=== PATIENT | female | born 2000 | race Caucasian/White ===

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

== ENCOUNTER 2018-01-09 03:03 | Emergency (ER) | payer OTHER ==
[2018-01-09] MEDS ORDERED: LIDOCAINE 2% 10 ML MDV SUBQ STA (03:12)
[2018-01-09 03:13] VITALS: BP 114/78
--- NOTE | 2018-01-09 03:40 | ED Physician Documentation ---
PD HPI SKIN - Stated complaint Stated Complaint: PX ON FINGERS - Chief complaint Chief Complaint: Ext Problem - History obtained from History obtained from: Patient, Family - History of Present Illness Timing - onset: How many days ago (4) Timing - details: Gradual onset, Still present Location: RUE Quality / character: Painful, Discolored Associated symptoms: No: Fever - Additional information Additional information: Patient is a 17 year old female presenting to the emergency department for a painful finger. patient states that it is red and swollen and has become progressively worse over the last week. Patient states that she couldn't sleep tonight so she came in for evaluation. Review of Systems Ten Systems: 10 systems reviewed and negative PD PAST MEDICAL HISTORY - Past Medical History Past Medical History: Yes Cardiovascular: None Respiratory: Asthma Neuro: None, Multiple sclerosis Endocrine/Autoimmune: None GI: Crohn's disease : None Musculoskeletal: None Derm: None - Past Surgical History Past Surgical History: Yes General: Colonoscopy - Present Medications Home Medications: Ambulatory Orders Medication Instructions Recorded Confirmed No Known Home Medications [No 11/25/17 11/25/17 Known Home Medications] - Allergies Allergies/Adverse Reactions: Allergies Allergy/AdvReac Type Severity Reaction Status Date / Time ibuprofen AdvReac Unknown Verified 01/09/18 03:13 - Social History Does the pt smoke?: No Smoking Status: Never smoker Does the pt drink ETOH?: No Does the pt have substance abuse?: No - Immunizations Immunizations are current?: Yes - POLST Patient has POLST: No PD ED PE NORMAL - Vitals Vital signs reviewed: Yes - General General: Alert and oriented X 3, Well developed/nourished - HEENT HEENT: Atraumatic - Cardiac Cardiac: RRR - Respiratory Respiratory: No respiratory distress - Neuro Neuro: Alert and oriented X 3 Eye Opening: Spontaneous PD ED PE EXPANDED - Extremities Extremities: Right finger(s) (paronychia on third digit of right hand) Results - Vitals Vitals: Vital Signs - 24 hr 01/09/18 03:09 Temperature 36.1 C L Heart Rate 68 Respiratory 17 Rate Blood Pressure 114/78 O2 Saturation 100 Oxygen O2 Source Room air Procedures - Abscess I&D (location) right third digit Preparation: Alcohol Incision: Incised with scalpel, Purulent drainage Other: Pt tolerated well - Regional nerve block Nerve block site: Digital - note digit(s) (3rd digit of hand) Right / left: Right Nerve block anesthesia: Lidocaine 2% Nerve block aftercare: Excellent anesthesia, No complications PD MEDICAL DECISION MAKING - ED course Complexity details: reviewed old records, re-evaluated patient, considered differential, d/w patient, d/w family ED course: Patient was seen and examined at bedside. Digital block was performed and I/D was performed with minimal purulent drainage. Patient required no further work up at this time and was stable for discharge with outpatient follow up. Departure - Departure Disposition: 01 Home, Self Care Clinical Impression: Paronychia of finger Condition: Good Instructions: ED Fingernail Infec, ED Paronychia Ch Follow-Up: primary,care provider [Other] Comments: Your symptoms today were caused by paronychia or fingernail infection. Now that the area is open the pain should lessen. You can take motrin or tylenol as needed for pain. You can apply warm compresses to the area and apply some pressure while showering. You should keep the area clean and dry and you can apply topical antibiotic as needed. You can follow up with your doctor if your symptoms don't improve. you may return to the emergency department at any time for new, worsening or uncontrollable symptoms.
== END 2018-01-09 03:45 | disposition home or self-care (01) ==
LOC: ED 03:03
DX: L03.011 Cellulitis of right finger (principal); G35 Multiple sclerosis; J45.909 Unspecified asthma, uncomplicated; K50.90 Crohn's disease, unspecified, without complications
CPT/HCPCS: 10060; 99282; 99283

== ENCOUNTER 2018-01-24 22:15 | Emergency (ER) | payer OTHER ==
[2018-01-24] MEDS ORDERED: TRANEXAMIC ACID 1,000 MG/10 ML VIAL NAS STA (22:51)
--- NOTE | 2018-01-25 00:10 | ED Physician Documentation ---
PD HPI HEENT - Stated complaint Stated Complaint: S/P TONSILECTOMY - Chief complaint Chief Complaint: Heent - History obtained from History obtained from: Patient - History of Present Illness Timing - onset: How many days ago (8) Timing - details: Gradual onset, Intermittant Location: Throat Similar symptoms before: Work up / diagnostics, Treatment Recently seen: Surgery - Additional information Additional information: Patient is a 17 year old female status post tonsillectomy about 8 days ago. Patient states that since that time she has had intermittent bleeding but tonight was worse than it had been. Patient called the probation manager office but it was saturday so they said to come to the emergency department. Review of Systems Ten Systems: 10 systems reviewed and negative Throat: reports: Sore throat PD PAST MEDICAL HISTORY - Past Medical History Cardiovascular: None Respiratory: Asthma Endocrine/Autoimmune: None GI: Crohn's disease : None Musculoskeletal: None Derm: None - Past Surgical History Past Surgical History: Yes General: Colonoscopy - Present Medications Home Medications: Ambulatory Orders Medication Instructions Recorded Confirmed No Known Home Medications [No 11/25/17 11/25/17 Known Home Medications] - Allergies Allergies/Adverse Reactions: Allergies Allergy/AdvReac Type Severity Reaction Status Date / Time ibuprofen AdvReac Unknown Verified 01/09/18 03:13 - Social History Does the pt smoke?: No Smoking Status: Never smoker Does the pt drink ETOH?: No Does the pt have substance abuse?: No - Immunizations Immunizations are current?: Yes - POLST Patient has POLST: No PD ED PE NORMAL - Vitals Vital signs reviewed: Yes - General General: Alert and oriented X 3, No acute distress - HEENT HEENT: Atraumatic - Neck Neck: Supple, no meningeal sign - Cardiac Cardiac: RRR - Respiratory Respiratory: No respiratory distress - Derm Derm: Normal color - Extremities Extremities: No deformity - Neuro Neuro: Alert and oriented X 3 PD ED PE EXPANDED - HEENT HEENT: Pharyngeal erythema, Other (minimal active bleeding) Results - Vitals Vitals: Vital Signs - 24 hr 01/24/18 01/25/18 01/25/18 22:24 00:05 00:41 Temperature 37.3 C Heart Rate 91 72 70 Respiratory 16 18 16 Rate Blood Pressure 114/71 119/77 112/50 L O2 Saturation 100 100 2 L Oxygen O2 Source Room air PD MEDICAL DECISION MAKING - ED course Complexity details: reviewed old records, reviewed results, re-evaluated patient , considered differential, d/w patient ED course: Patient was seen and examined at bedside. patient was treated with nebulized racemic epi. Patient responded well and the bleeding stopped. patient required no further work up at this time and was stable for discharge with outpatient follow up. Departure - Departure Disposition: Home, Self Care Clinical Impression: Hemorrhage following tonsillectomy Condition: Good Instructions: ED Tonsillectomy Post Op Bleeding Follow-Up: Susie Fischer MD [Primary Care Provider] - Comments: It is important that you follow up with your doctor on saturday to schedule your follow up appointment. You may return to the emergency department at any time for new, worsening or uncontrollable symptoms. Discharge Date/Time: 01/25/18 00:42
[2018-01-25 00:42] VITALS: BP 112/50
== END 2018-01-25 00:42 | disposition home or self-care (01) ==
LOC: ED 22:15
DX: J95.830 Postprocedural hemorrhage of a respiratory system organ or structure following a respiratory system procedure (principal); J35.8 Other chronic diseases of tonsils and adenoids; R04.1 Hemorrhage from throat
CPT/HCPCS: 99283

== ENCOUNTER 2018-10-11 15:40 | Emergency (ER) | payer OTHER ==
[2018-10-11 15:48] VITALS: BP 106/62
--- NOTE | 2018-10-11 16:02 | ED Physician Documentation ---
History of Present Illness - Stated complaint Stated Complaint: BLOOD/MUCUS IN STOOL - Chief complaint Chief Complaint: General - History obtained from History obtained from: Patient - History of Present Illness Timing: Other (This is a G1 at 31 weeks gestation who presents with 3 weeks of diarrhea that over the last week is been bloody and mucousy with poor weight gain and some cramps. No vaginal bleeding or fluid loss. She wonders if she might have a parasite, but denies foreign travel. She did recently have a single dose of antibiotics in the emergency department at [facility] for UTI but did not fill the prescription for UTI because the pharmacy has been closed.) Review of Systems Constitutional: denies: Fever, Chills GI: reports: Diarrhea. denies: Abdominal Pain, Nausea, Vomiting : denies: Dysuria, Frequency PD PAST MEDICAL HISTORY - Past Medical History Cardiovascular: None Respiratory: Asthma Endocrine/Autoimmune: None GI: Crohn's disease : None Musculoskeletal: None Derm: None - Past Surgical History Past Surgical History: Yes General: Colonoscopy - Present Medications Home Medications: Ambulatory Orders Medication Instructions Recorded Confirmed Pnv No.95/Ferrous Fum/Folic AC 1 tab PO DAILY 10/11/18 10/11/18 [ Caplet] - Allergies Allergies/Adverse Reactions: Allergies Allergy/AdvReac Type Severity Reaction Status Date / Time ibuprofen AdvReac Unknown Verified 10/11/18 15:48 - Social History Does the pt smoke?: No Smoking Status: Never smoker Does the pt drink ETOH?: No Does the pt have substance abuse?: No - Immunizations Immunizations are current?: Yes - POLST Patient has POLST: No PD ED PE NORMAL - Vitals Vital signs reviewed: Yes - General General: Alert and oriented X 3, No acute distress - Cardiac Cardiac: RRR, No murmur - Respiratory Respiratory: No respiratory distress, Clear bilaterally - Abdomen Abdomen: Normal bowel sounds, Soft, Non tender - Female Female : Other (bedside sono FHT 143) - Back Back: No CVA TTP, No spinal TTP - Neuro Neuro: Alert and oriented X 3, Normal speech - Psych Psych: Normal mood, Normal affect Results - Vitals Vitals: Vital Signs - 24 hr 10/11/18 15:45 Temperature 36.1 C L Heart Rate 109 H Respiratory 18 Rate Blood Pressure 106/62 O2 Saturation 99 Oxygen O2 Source Room air - Labs Labs: Microbiology 10/11/18 16:45 Campylobacter Antigen Assay - Final Stool Laboratory Tests 10/11/18 10/11/18 10/11/18 16:10 16:10 16:34 WBC 10.9 H RBC 2.85 L Hgb 7.1 L Hct 22.7 L MCV 79.7 L MCH 25.0 L MCHC 31.4 L RDW 16.3 H Plt Count 346 MPV 7.3 L Neut # (Auto) Not Reportable Lymph # (Auto) Not Reportable Victoria # (Auto) Not Reportable Eos # (Auto) Not Reportable Baso # (Auto) Not Reportable Absolute Nucleated RBC Not Reportable Total Counted 100 Band Neuts % (Manual) 0 Abnorm Lymph % (Manual) 0 Nucleated RBC % Not Reportable Neutrophils # (Manual) 7.1 H Lymphocytes # (Manual) 1.4 L Monocytes # (Manual) 1.3 H Eosinophils # (Manual) 1.1 H Basophils # (Manual) 0.0 Differential Comment MANUAL DIFFERENTIAL Manual Slide Review Indicated WBC Morphology NORMAL APPEARANCE Platelet Estimate NORMAL (130-450,000) Platelet Morphology NORMAL APPEARANCE RBC Morph Micro Appear 1+ MICROCYTOSIS Sodium 134 L Potassium 3.2 L Chloride 103 Carbon Dioxide 22 Anion Gap 9.0 BUN 6 Creatinine 0.5 Estimated GFR (MDRD) 159 Glucose 105 H Calcium 8.3 L Total Bilirubin 0.4 AST 19 ALT 11 Alkaline Phosphatase 122 H Total Protein 6.0 L Albumin 2.2 L Globulin 3.8 Albumin/Globulin Ratio 0.6 L Lipase 30 Urine Color Urine Clarity Urine pH Ur Specific [place] Urine Protein Urine Glucose (UA) Urine Ketones Urine Occult Blood Urine Nitrite Urine Bilirubin Urine Urobilinogen Ur Leukocyte Esterase Urine RBC Urine WBC Ur Squamous Epith Cells Amorphous Sediment Urine Bacteria Ur Microscopic Review Urine Culture Comments C. difficile Tox B Gene POSITIVE A* 10/11/18 16:45 WBC RBC Hgb Hct MCV MCH MCHC RDW Plt Count MPV Neut # (Auto) Lymph # (Auto) Victoria # (Auto) Eos # (Auto) Baso # (Auto) Absolute Nucleated RBC Total Counted Band Neuts % (Manual) Abnorm Lymph % (Manual) Nucleated RBC % Neutrophils # (Manual) Lymphocytes # (Manual) Monocytes # (Manual) Eosinophils # (Manual) Basophils # (Manual) Differential Comment Manual Slide Review WBC Morphology Platelet Estimate Platelet Morphology RBC Morph Micro Appear Sodium Potassium Chloride Carbon Dioxide Anion Gap BUN Creatinine Estimated GFR (MDRD) Glucose Calcium Total Bilirubin AST ALT Alkaline Phosphatase Total Protein Albumin Globulin Albumin/Globulin Ratio Lipase Urine Color YELLOW Urine Clarity CLOUDY Urine pH 6.0 Ur Specific [place] 1.025 Urine Protein NEGATIVE Urine Glucose (UA) NEGATIVE Urine Ketones NEGATIVE Urine Occult Blood TRACE-INTA Urine Nitrite NEGATIVE Urine Bilirubin NEGATIVE Urine Urobilinogen 0.2 (NORMAL) Ur Leukocyte Esterase MODERATE H Urine RBC 0-5 Urine WBC 6-10 H Ur Squamous Epith Cells MOD Squamous H Amorphous Sediment Few Urine Bacteria Few Ur Microscopic Review INDICATED Urine Culture Comments NOT INDICATED C. difficile Tox B Gene PD MEDICAL DECISION MAKING - ED course ED course: Her illness actually sounds more like inflammatory bowel disease than anything else. She is profoundly anemic, however her lab work done 2 years ago shows a similar level of hemoglobin. This was discussed with her as well as her OB, by phone , Dr Alvarez After discharge her stool was called is being positive for Clostridium difficile.. The nurse called the patient and she was called in a prescription for vancomycin 250 mg 4 times a day for 10 days. Departure - Departure Disposition: 01 Home, Self Care Clinical Impression: Inflammatory bowel disease, Anemia, Condition: Good Record reviewed to determine appropriate education?: Yes Instructions: Disease Crohn Dc, ED Anemia Type Not Specified Comments: Followup with Dr Alvarez this week as discussed, repeat ultrasound and follow labs, consider colonoscopy after delivery. Discharge Date/Time: 10/11/18 17:06
[2018-10-11 16:28] LABS: BASOPHILS % (AUTO) 0.5 %; EOSINOPHILS % (AUTO) 17.1 %; HGB - HEMOGLOBIN 7.1 g/dL (12.0-16.0); LYMPHOCYTES % (AUTO) 16.1 %; MEAN CORPUSCULAR HGB CONC 31.4 g/dL (32.0-36.0); MEAN CORPUSCULAR VOLUME 79.7 fL (81.0-99.0); MEAN PLATELET VOLUME 7.3 fL (7.9-10.8); MONOCYTES % (AUTO) 9.5 %; NEUTROPHILS % (AUTO) 56.8 %; PLT - PLATELET COUNT 346 10^3/uL (130-450); RED BLOOD COUNT 2.85 10^6/uL (4.20-5.40); RED CELL DISTRIBUTION WIDTH 16.3 % (12.0-15.0); WHITE BLOOD COUNT 10.9 x10^3/uL (4.8-10.8)
[2018-10-11 16:31] LABS: ABNORMAL LYMPHS % (MANUAL) 0 %; ALBUMIN 2.2 g/dL (3.2-5.5); ALBUMIN/GLOBULIN RATIO 0.6 (1.0-2.2); BAND NEUTROPHILS % (MANUAL) 0 %; BILIRUBIN,TOTAL 0.4 mg/dL (0.2-1.0); CALCIUM 8.3 mg/dL (8.5-10.3); CREATININE 0.5 mg/dL (0.4-1.0)
[2018-10-11 16:41] LABS: EOSINOPHILS # (MANUAL) 1.1 10^3/uL (0-0.7); LYMPHOCYTES # (MANUAL) 1.4 10^3/uL (1.5-3.5); LYMPHOCYTES % (MANUAL) 13 %; MONOCYTES # (MANUAL) 1.3 10^3/uL (0.0-1.0); NEUTROPHILS # (MANUAL) 7.1 10^3/uL (1.5-6.6); NEUTROPHILS % (MANUAL) 65 %
[2018-10-11 16:42] LABS: DIFFERENTIAL COMMENT MANUAL DIFFERENTIAL; PLATELET ESTIMATE, MANUAL NORMAL (130-450,000) (NORMAL); PLATELET MORPHOLOGY NORMAL APPEARANCE (NORMAL)
[2018-10-11 17:06] LABS: BILIRUBIN,URINE NEGATIVE (NEGATIVE); GLUCOSE, URINE (UA) NEGATIVE (NEGATIVE); KETONES,URINE (UA) NEGATIVE (NEGATIVE); LEUKOCYTE ESTERASE, URINE MODERATE (NEGATIVE); NITRITE,URINE NEGATIVE (NEGATIVE); OCCULT BLOOD,URINE TRACE-INTA (NEGATIVE); PROTEIN,URINE NEGATIVE (NEGATIVE); UROBILINOGEN,URINE 0.2 (NORMAL) E.U./dL (NORMAL)
[2018-10-11 17:20] LABS: CLARITY,URINE CLOUDY (CLEAR)
[2018-10-11 17:29] LABS: AMORPHOUS SEDIMENT,UR Few /LPF; BACTERIA,URINE Few /HPF (None Seen); RBC,URINE 0-5 /HPF (0-5); SQUAMOUS EPITHELIAL CELL,UR MOD Squamous (<= Few)
== END 2018-10-11 17:06 | disposition home or self-care (01) ==
LOC: ED 15:40
DX: O26.893 Other specified pregnancy related conditions, third trimester (principal); K58.9 Irritable bowel syndrome, unspecified; O99.013 Anemia complicating pregnancy, third trimester; Z3A.31 31 weeks gestation of pregnancy
CPT/HCPCS: 36415; 80053; 81001; 81003; 83690; 85025; 87045; 87046; 87086; 87177; 87209; 87493; 99283

== ENCOUNTER 2018-10-13 22:22 | Emergency (ER) | payer OTHER ==
--- NOTE | 2018-10-13 22:48 | ED Physician Documentation ---
PD HPI ABD PAIN - Stated complaint Stated Complaint: NAUSEA - Chief complaint Chief Complaint: Abd Pain - History obtained from History obtained from: Patient - History of Present Illness Timing - onset: Other (This is a 17-year-old woman who is that I saw a Couple of days ago for diarrhea, sounded like ulcerative colitis or Crohn's disease which she had evidence of previous CT a couple of years ago. After discharge Her C. difficile taste came back positive and she was called and phoned in a prescription for vancomycin which she has started. She is really actually mostly improving although she complains of nausea but declines medication. But tonight she had a bowel movement and became concerned because there was a small piece of tissue in it. She brings it in in a plastic bag, it is a little smaller than a dime and it is kind of a mucousy piece of membrane. It is not grossly bloody or obviously pathologic.) Review of Systems Constitutional: denies: Fever, Chills Respiratory: denies: Dyspnea, Cough GI: reports: Nausea, Diarrhea. denies: Abdominal Pain, Vomiting, Bloody / black stool PD PAST MEDICAL HISTORY - Past Medical History Cardiovascular: None Respiratory: Asthma Endocrine/Autoimmune: None GI: Crohn's disease : None Musculoskeletal: None Derm: None - Past Surgical History Past Surgical History: Yes General: Colonoscopy - Present Medications Home Medications: Ambulatory Orders Medication Instructions Recorded Confirmed Pnv No.95/Ferrous Fum/Folic AC 1 tab PO DAILY 10/11/18 10/11/18 [ Caplet] Metronidazole [Flagyl] 500 mg PO BID 10/13/18 10/13/18 Nitrofurantoin [Macrobid] 100 mg PO BID 10/13/18 10/13/18 Vancomycin [Vancocin] 1 cap PO QID 10/13/18 10/13/18 - Allergies Allergies/Adverse Reactions: Allergies Allergy/AdvReac Type Severity Reaction Status Date / Time ibuprofen AdvReac Unknown Verified 10/13/18 22:38 - Social History Does the pt smoke?: No Smoking Status: Never smoker Does the pt drink ETOH?: No Does the pt have substance abuse?: No - Immunizations Immunizations are current?: Yes - POLST Patient has POLST: No PD ED PE NORMAL - Vitals Vital signs reviewed: Yes - General General: Alert and oriented X 3, No acute distress - HEENT HEENT: Moist mucous membranes - Abdomen Abdomen: Soft, Non tender - Neuro Neuro: Alert and oriented X 3, Normal speech Results - Vitals Vitals: Vital Signs - 24 hr 10/13/18 22:35 Temperature 36.7 C Heart Rate 99 Respiratory 16 Rate Blood Pressure 114/69 O2 Saturation 100 Oxygen O2 Source Room air PD MEDICAL DECISION MAKING - ED course ED course: This is a 17-year-old woman with history of likely Crohn's or ulcerative colitis based on prior workup, also anemia who presents with a small piece of tissue in her stool. She was reassured that this requires no change in the plan of care at this juncture and follow-up for blood counts and colonoscopy after were advised. Departure - Departure Disposition: 01 Home, Self Care Clinical Impression: C. difficile colitis Ulcerative colitis Qualifiers: Ulcerative colitis location: unspecified ulcerative colitis location Digestive disease complication type: unspecified complication Qualified Code(s): K51.919 - Ulcerative colitis, unspecified with unspecified complications Qualifiers: Weeks of gestation: unspecified Qualified Code(s): Z34.90 - Encounter for supervision of normal , unspecified, unspecified trimester Anemia Qualifiers: Anemia type: iron deficiency Iron deficiency anemia type: unspecified iron deficiency Qualified Code(s): D50.9 - Iron deficiency anemia, unspecified Condition: Stable Record reviewed to determine appropriate education?: Yes Instructions: Clostridium Difficile Infec, ED Colitis Ulcerative Comments: Continue the antibiotics as discussed. Return for new or worsening symptoms. As discussed previously will need to follow-up and have close monitoring of your blood counts with your physician and I recommend a colonoscopy after the .
[2018-10-13 23:01] VITALS: BP 117/78
== END 2018-10-13 22:59 | disposition home or self-care (01) ==
LOC: ED 22:22
DX: Z34.90 Encounter for supervision of normal pregnancy, unspecified, unspecified trimester (principal); A04.72 Enterocolitis due to Clostridium difficile, not specified as recurrent; K51.919 Ulcerative colitis, unspecified with unspecified complications
CPT/HCPCS: 99283

== ENCOUNTER 2018-11-12 00:27 | Observation (INO) | payer OTHER ==
[2018-11-12 00:36] VITALS: BP 107/60
[2018-11-12 01:46] LABS: BILIRUBIN,URINE NEGATIVE (NEGATIVE); GLUCOSE, URINE (UA) NEGATIVE (NEGATIVE); KETONES,URINE (UA) NEGATIVE (NEGATIVE); LEUKOCYTE ESTERASE, URINE NEGATIVE (NEGATIVE); NITRITE,URINE NEGATIVE (NEGATIVE); OCCULT BLOOD,URINE MODERATE (NEGATIVE); PH,URINE 6.5 PH (5.0-7.5); PROTEIN,URINE NEGATIVE (NEGATIVE); UROBILINOGEN,URINE 0.2 (NORMAL) E.U./dL (NORMAL)
[2018-11-12 01:47] LABS: CLARITY,URINE CLEAR (CLEAR)
[2018-11-12 02:11] LABS: BACTERIA,URINE None Seen /HPF (None Seen); SQUAMOUS EPITHELIAL CELL,UR FEW Squamous (<= Few)
[2018-11-12] MEDS ORDERED: SODIUM CHLORIDE FLUSH 0.9% 10 ML SYRINGE ONE (02:20)
[2018-11-12 02:40] LABS: BASOPHILS # (AUTO) 0.1 10^3/uL (0.0-0.1); BASOPHILS % (AUTO) 0.6 %; EOSINOPHILS # (AUTO) 0.5 10^3/uL (0.0-0.7); EOSINOPHILS % (AUTO) 4.4 %; HGB - HEMOGLOBIN 9.7 g/dL (12.0-16.0); LYMPHOCYTES # (AUTO) 3.4 10^3/uL (1.5-3.5); LYMPHOCYTES % (AUTO) 32.2 %; MEAN CORPUSCULAR HEMOGLOBIN 25.4 pg (27.0-31.0); MEAN CORPUSCULAR HGB CONC 31.9 g/dL (32.0-36.0); MEAN CORPUSCULAR VOLUME 79.5 fL (81.0-99.0); MEAN PLATELET VOLUME 8.4 fL (7.9-10.8); MONOCYTES # (AUTO) 0.9 10^3/uL (0.0-1.0); MONOCYTES % (AUTO) 8.2 %; NEUTROPHILS # (AUTO) 5.8 10^3/uL (1.5-6.6); NEUTROPHILS % (AUTO) 54.6 %; PLT - PLATELET COUNT 253 10^3/uL (130-450); RED BLOOD COUNT 3.83 10^6/uL (4.20-5.40); RED CELL DISTRIBUTION WIDTH 18.9 % (12.0-15.0); WHITE BLOOD COUNT 10.7 x10^3/uL (4.8-10.8)
--- NOTE | 2018-11-19 12:35 | PROVIDER PROGRESS NOTE ---
Subjective - Subjective Subjective: Patient not seen by MD during her obs. All information received from nursing. S: VB has stopped. No more abd pain. Good FM. Nothing new. O: AVSS A/P: Vaginal bleeding in due to recent intercourse. RLQ pain postcoital, now resolved, likely due to round ligament pain. OK for discharge home, PTL precautions and FKC reviewed, follow up at routine OB check. Objective - Lab Results Fish Bones: 11/12/18 02:28
--- NOTE | 2018-11-19 14:22 | HISTORY & PHYSICAL EXAMINATION ---
DATE OF SERVICE: 11/12/2018 Physician: Denise Garcia MD CHIEF COMPLAINT: Bleeding and pain. HISTORY OF PRESENT ILLNESS: Patient was having intercourse around midnight and immediately afterward s she noticed vaginal bleeding. There were 2 small clots that came out. It was bright red. It is n ow flowing like a moderate period. She also developed right lower quadrant pain that was sharp in na ture and 5/10 in intensity. It is mostly consistent, but sometimes can flare. No leaking of water. Good movement is present. REVIEW OF SYSTEMS: No fevers. PAST MEDICAL HISTORY 1. Recurrent major depression. 2. History of self harm. 3. Ulcerative colitis. 4. Hemorrhoids. 5. Reactive airway disease. PAST SURGICAL HISTORY 1. Tonsillectomy. 2. Colonoscopy. MEDICATIONS 1. Multivitamins daily. 2. Iron daily. 3. Albuterol p.r.n. ALLERGIES: IBUPROFEN CAUSES GI UPSET. SOCIAL HISTORY: Patient is a [facility] patient. No tobacco, alcohol or drug use. FAMILY HISTORY: Asthma. IMMUNIZATIONS: Patient is status post influenza and Tdap vaccines. OBSTETRICAL HISTORY: G1 is current with dating of 12/10/2018. PHYSICAL EXAMINATION GENERAL: Patient is afebrile with normal vital signs. She has a category 1 NST. She is experiencin g contractions every 1-2 minutes on the NST. They palpate mild. IMPRESSION AND PLAN: Patient was observed in triage where she maintained category 1 tracing. Her co ntractions started to space out a bit. She did continue to have abdominal pain. As we had a good et iology of her abdominal pain, an extensive workup was not performed. Instead, the patient was admitt ed for observation. Four hours later her pain had spontaneously resolved and so had her bleeding, as well as her contractions. On admission, we placed a saline lock, did a type and screen and a CBC. The patient underwent continuous monitoring throughout her hospitalization. TD: 11/19/2018 13:00
== END 2018-11-12 06:08 | disposition home or self-care (01) ==
LOC: WFO 00:27 → FBP 00:28 → WFO 01:49 → FBP 01:50
PROVIDERS: ADMIT Obstetrics & Gynecology; ATTEND Obstetrics & Gynecology
DX: O46.8X3 Other antepartum hemorrhage, third trimester (principal); O60.03 Preterm labor without delivery, third trimester; O99.89 Other specified diseases and conditions complicating pregnancy, childbirth and the puerperium; R10.32 Left lower quadrant pain; Z3A.36 36 weeks gestation of pregnancy
CPT/HCPCS: 81001; 85025; 86850; 86900; 86901; 99213; G0378; 87086

== ENCOUNTER 2018-11-28 15:09 | Outpatient (CLI) | payer OTHER ==
[2018-11-28] MEDS ORDERED: fentaNYL 100 MCG/2 ML VIAL IVP PRN ×2 (16:05→18:18)
[2018-11-28 16:46] LABS: BILIRUBIN,URINE NEGATIVE (NEGATIVE); GLUCOSE, URINE (UA) NEGATIVE (NEGATIVE); KETONES,URINE (UA) NEGATIVE (NEGATIVE); LEUKOCYTE ESTERASE, URINE LARGE (NEGATIVE); NITRITE,URINE NEGATIVE (NEGATIVE); OCCULT BLOOD,URINE TRACE-INTA (NEGATIVE); PH,URINE 6.5 PH (5.0-7.5); PROTEIN,URINE NEGATIVE (NEGATIVE); UROBILINOGEN,URINE 0.2 (NORMAL) E.U./dL (NORMAL)
[2018-11-28] MEDS ORDERED: SODIUM CHLORIDE FLUSH 0.9% 10 ML SYRINGE ONE (16:49)
[2018-11-28 16:50] LABS: CLARITY,URINE HAZY (CLEAR)
[2018-11-28 17:00] LABS: BACTERIA,URINE Few /HPF (None Seen); RBC,URINE 0-5 /HPF (0-5); SQUAMOUS EPITHELIAL CELL,UR MANY Squamous (<= Few)
[2018-11-28 17:05] LABS: ALBUMIN 2.8 g/dL (3.2-5.5); ALBUMIN/GLOBULIN RATIO 0.8 (1.0-2.2); BILIRUBIN,DIRECT 0.1 mg/dL (0.1-0.5); BILIRUBIN,TOTAL 0.5 mg/dL (0.2-1.0); CREATININE 0.9 mg/dL (0.4-1.0); TOTAL PROTEIN 6.3 g/dL (6.7-8.2)
[2018-11-28 17:17] LABS: AMYLASE 56 U/L (28-100); LIPASE 28 U/L (22-51)
--- NOTE | 2018-11-28 17:47 | Ultrasound Report ---
Reason: r sided epigastric pain Procedure Date: 11/28/2018 Accession Number: [id number] / [id number] Procedure: US - Abdomen Limited CPT Code: FULL RESULT: EXAM: ABDOMEN ULTRASOUND LIMITED, RUQ EXAM DATE: 11/28/2018 04:44 PM. CLINICAL HISTORY: R sided epigastric pain. COMPARISON: None. TECHNIQUE: Real-time scanning was performed with static images obtained. Technically limited study. FINDINGS: Liver: Grossly normal echotexture. No definite mass. Normal overall size, 14.5 cm. Main portal vein flow: Hepatopetal. Gallbladder: Contracted; patient not n.P.O. Possible stone in gallbladder neck versus artifact. Mild wall thickening measuring 3.6 mm. Localized tenderness over the gallbladder. Biliary System: CBD measures 3.5 mm. No intrahepatic or extrahepatic ductal dilatation. Other: Moderate to marked hydronephrosis. Normal overall kidney size. Possible lower pole stone. IMPRESSION: 1. Contracted gallbladder with possible stone in the gallbladder neck versus artifact. Localized tenderness over the gallbladder suspicious for cholecystitis. 2. Moderate to marked right hydronephrosis. Possible lower pole stone. RADIA
[2018-11-28 20:53] VITALS: BP 120/80
--- NOTE | 2018-12-03 11:36 | PREOP HISTORY & PHYSICAL ---
DATE OF SERVICE: 11/28/2018 Physician: Efra Smith MD PATIENT IDENTIFICATION: The patient is a 18-year-old G1, P0, female who is 38- 3/7 weeks by early visits and ultrasound. She is currently a patient of [facility]. She has been seen predominantly by a Dr. Alvarez. CHIEF COMPLAINT: Right upper quadrant pain. HISTORY OF PRESENT ILLNESS: The patient states that she has been having difficulty of right upper quadrant pain over the last month. This has gotten progressively worse, becoming quite sharp today. She denies radiation to the back, or shoulder. She denies any relationship to food or fatty diet. She states that this has been unremitting. PAST MEDICAL HISTORY: Patient denies any hypertensive, diabetic, cardiac, or pulmonary disease. PAST SURGICAL HISTORY: Surgical history at this time is negative. ALLERGIES: NONE KNOWN. CURRENT MEDICATIONS: Those of vitamins. PHYSICAL EXAMINATION HEENT: Pupils are equal, round. Extraocular muscles are intact. GENERAL: The patient is complaining of a moderate amount of pain. She has exacerbations where it becomes worse. CARDIOVASCULAR: Regular rate and rhythm. LUNGS: Lung christianson are clear. ABDOMEN: Gravid. The uterus is nontender. She has tenderness in the right upper quadrant. Care was taken to try and differentiate this between the gallbladder and the ribs, and it appears to be the costochondral junction. LABORATORY DATA: She has a CMP, which was drawn. Her LFTs were totally normal. Her bilirubin, direct and indirect, were also normal. Amylace and lipace normal DIAGNOSTIC STUDIES: She had an ultrasound performed of the right upper quadrant, looking specifically for gallstones or dilated gallbladder duct. No stones are seen in the gallbladder. The kidney showed some hydronephrosis, as one might expect from a at this time. IMPRESSION 1. 18-year-old G1, P0 at 38 week 3 day gestation. 2. Right upper quadrant pain. This does not appear to be a gallbladder or pancreatic disease at this time, as all of her labs were normal. Her tenderness is on the costochondral junction of the right rib. This appears to be the source of her pain. PLAN: At this point, I have given her fentanyl as well as a prescription for oxycodone. She is instructed to followup with her drier operator. Should things become progressively worse, she should return. TD: 12/03/2018 11:24 ARLENE
== END 2018-11-28 19:15 | disposition home or self-care (01) ==
LOC: WFO 15:09 → FBP 15:12 → WFO 19:15
PROVIDERS: ATTEND Obstetrics & Gynecology
DX: O99.89 Other specified diseases and conditions complicating pregnancy, childbirth and the puerperium (principal); M94.0 Chondrocostal junction syndrome [Tietze]; N13.30 Unspecified hydronephrosis; R93.2 Abnormal findings on diagnostic imaging of liver and biliary tract; Z3A.38 38 weeks gestation of pregnancy
CPT/HCPCS: 36415; 76705; 80053; 81001; 82150; 82247; 82248; 83690; 87086; 96374; 96376; 99214

== ENCOUNTER 2018-12-20 12:00 | Day surgery (SDC) | payer OTHER ==
--- NOTE | 2018-12-20 12:03 | ED Physician Documentation ---
PD HPI FEMALE - Stated complaint Stated Complaint: BLEEDING/FEMALE - History obtained from History obtained from: Patient - History of Present Illness Timing - onset: How many days ago (2) Timing - duration: Days (2) Timing - details: Gradual onset (She had a vaginal delivery with a small internal tear 2 weeks ago and had had some mild bleeding consistent with normal delivery. She states that has continued over the last couple of weeks lessening lately. She denied any purulent discharge. She started 2 days ago with brisk or vaginal bleeding and passage of clots today. She states she was using a pad every 1-2 hours since last night. She denies any fever. She has not had any dizziness or lightheadedness. [place].), Still present Associated symptoms: Vaginal bleeding. 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 denies: Fever, Chills, Myalgias Nose: denies: Rhinorrhea / runny nose, Congestion Throat: denies: Sore throat Respiratory: denies: Cough GI: denies: Abdominal Pain, Vomiting, Diarrhea : reports: Vaginal bleeding. denies: Dysuria, Discharge Neurologic: reports: Generalized weakness. denies: Near syncope PD PAST MEDICAL HISTORY - Past Medical History Cardiovascular: None Respiratory: Asthma Neuro: None Endocrine/Autoimmune: None GI: Crohn's disease : None Psych: Depression Musculoskeletal: None Derm: None - Past Surgical History Past Surgical History: Yes General: Colonoscopy - Present Medications Home Medications: Ambulatory Orders Medication Instructions Recorded Confirmed Pnv No.95/Ferrous Fum/Folic AC 1 tab PO DAILY 10/11/18 10/11/18 [ Caplet] Metronidazole [Flagyl] 500 mg PO BID 10/13/18 10/13/18 Nitrofurantoin [Macrobid] 100 mg PO BID 10/13/18 10/13/18 Vancomycin [Vancocin] 1 cap PO QID 10/13/18 10/13/18 - Allergies Allergies/Adverse Reactions: Allergies Allergy/AdvReac Type Severity Reaction Status Date / Time ibuprofen AdvReac Unknown Verified 10/13/18 22:38 - Social History Does the pt smoke?: No Smoking Status: Never smoker Does the pt drink ETOH?: No Does the pt have substance abuse?: No - Immunizations Immunizations are current?: Yes - POLST Patient has POLST: No PD ED PE NORMAL - Vitals Vital signs reviewed: Yes - General General: Alert and oriented X 3, No acute distress, Well developed/nourished - Cardiac Cardiac: RRR, No murmur - Respiratory Respiratory: Clear bilaterally - Abdomen Abdomen: Normal bowel sounds, Soft, Non tender, Non distended - Female Female : Deferred - Rectal Rectal: Deferred - Back Back: No CVA TTP - Derm Derm: Normal color, Warm and dry - Neuro Neuro: Alert and oriented X 3, No motor deficit, Normal speech Results - Vitals Vitals: Vital Signs - 24 hr 12/20/18 12/20/18 12:02 13:46 Temperature 36 C L Heart Rate 93 56 L Respiratory 18 16 Rate Blood Pressure 115/67 104/66 O2 Saturation 99 99 Oxygen O2 Source Room air - Labs Labs: Laboratory Tests 12/20/18 12/20/18 12/20/18 12:39 12:39 13:00 WBC 5.6 RBC 3.76 L Hgb 10.0 L Hct 30.8 L MCV 81.9 MCH 26.6 L MCHC 32.5 RDW 18.5 H Plt Count 612 H MPV 6.2 L Neut # (Auto) 3.0 Lymph # (Auto) 1.8 [place] # (Auto) 0.4 Eos # (Auto) 0.3 Baso # (Auto) 0.1 Absolute Nucleated RBC 0.00 Nucleated RBC % 0.0 Sodium 140 Potassium 3.9 Chloride 103 Carbon Dioxide 24 Anion Gap 13.0 BUN 15 Creatinine 0.7 Estimated GFR (MDRD) 107 Glucose 94 Calcium 9.2 Total Bilirubin 0.4 AST 21 ALT 20 Alkaline Phosphatase 115 Total Protein 6.8 Albumin 3.4 Globulin 3.4 Albumin/Globulin Ratio 1.0 Lipase 27 Urine Color YELLOW Urine Clarity HAZY Urine pH 6.0 Ur Specific [place] <=1.005 Urine Protein NEGATIVE Urine Glucose (UA) NEGATIVE Urine Ketones NEGATIVE Urine Occult Blood LARGE H Urine Nitrite NEGATIVE Urine Bilirubin NEGATIVE Urine Urobilinogen 0.2 (NORMAL) Ur Leukocyte Esterase MODERATE H Urine RBC 11-25 H Urine WBC 6-10 H Ur Squamous Epith Cells NONE SEEN Urine Bacteria Few Ur Microscopic Review INDICATED Urine Culture Comments INDICATED - Rads (name of study) pelvic U/S Radiology: Prelim report reviewed (There is a 2-1/2 cm area of vascularity and thickening of the endometrial wall consistent with retained products. There is good flow to both ovaries. No free fluid.), See rad report PD MEDICAL DECISION MAKING - ED course Complexity details: reviewed results (Ultrasound is showing retained products. I therefore deferred the pelvic exam at this time and will contact Dr. Pradhan on-call for gynecology.), re-evaluated patient, considered differential (Consider possibilities of hormonal irregularity such as first. After delivery or infectious causes such as endometritis though she does not have any fever or significant pain. Also evaluate for retained products with ultrasound. Will check her blood count to ensure she is not too low.), d/w patient Departure - Departure Disposition: ED Transfer to [facility] Clinical Impression: bleeding, Retained products of conception Condition: Stable
[2018-12-20 12:51] LABS: BASOPHILS # (AUTO) 0.1 10^3/uL (0.0-0.1); EOSINOPHILS # (AUTO) 0.3 10^3/uL (0.0-0.7); EOSINOPHILS % (AUTO) 5.8 %; LYMPHOCYTES # (AUTO) 1.8 10^3/uL (1.5-3.5); LYMPHOCYTES % (AUTO) 31.7 %; MEAN CORPUSCULAR HEMOGLOBIN 26.6 pg (27.0-31.0); MEAN CORPUSCULAR HGB CONC 32.5 g/dL (32.0-36.0); MEAN CORPUSCULAR VOLUME 81.9 fL (81.0-99.0); MEAN PLATELET VOLUME 6.2 fL (7.9-10.8); MONOCYTES # (AUTO) 0.4 10^3/uL (0.0-1.0); MONOCYTES % (AUTO) 7.6 %; NEUTROPHILS % (AUTO) 53.9 %; PLT - PLATELET COUNT 612 10^3/uL (130-450); RED BLOOD COUNT 3.76 10^6/uL (4.20-5.40); RED CELL DISTRIBUTION WIDTH 18.5 % (12.0-15.0); WHITE BLOOD COUNT 5.6 x10^3/uL (4.8-10.8)
[2018-12-20 13:11] LABS: ALBUMIN 3.4 g/dL (3.2-5.5); BILIRUBIN,TOTAL 0.4 mg/dL (0.2-1.0); CALCIUM 9.2 mg/dL (8.5-10.3); CREATININE 0.7 mg/dL (0.4-1.0); TOTAL PROTEIN 6.8 g/dL (6.7-8.2)
--- NOTE | 2018-12-20 13:51 | Ultrasound Report ---
Reason: pelvic pain Procedure Date: 12/20/2018 Accession Number: [id number] / [id number] Procedure: US - Pelvic w/Transvag+Doppler Ltd CPT Code: FULL RESULT: EXAM: PELVIC ULTRASOUND WITH DOPPLERS CLINICAL HISTORY: Pelvic pain. COMPARISON: None. TECHNIQUE: Realtime transabdominal imaging performed to identify the uterus and adnexa and as an overview of other pelvic structures, followed by transvaginal imaging for better assessment of the endometrium and adnexa, with static image documentation. Color flow imaging and Doppler spectral analysis was performed to evaluate blood flow to the ovaries given pelvic pain and clinical concern for ovarian torsion. FINDINGS: Uterus: 11.2 x 8.8 x 5.8 cm, volume 299 cc. Anteverted position. Normal overall size and echotexture. Masses: None. Endometrium: 8 mm. Focal area of increased vascularity within the endometrium measuring 2.5 x 2.1 x 0.7 cm. Cervix: Unremarkable. Right Ovary: 3.2 x 2.3 x 2.0 cm, volume 7.7 cc. Normal echotexture. Arterial and venous blood flow are present. PSV 19 cm/sec. RI 0.47. Adnexa are unremarkable. Left Ovary: 2.4 x 1.7 x 1.3 cm, volume 2.8 cc. Normal echotexture. Arterial and venous blood flow are present. PSV 9 cm/sec. RI 0.57. Adnexa are unremarkable. Free Fluid: None. Other: None. IMPRESSION: 1. The endometrium is thickened with a focal area of increased vascularity measuring up to 2.5 cm consistent with retained products of conception. 2. Arterial and venous blood flow are present to the ovaries bilaterally. RADIA
[2018-12-20 13:56] LABS: BILIRUBIN,URINE NEGATIVE (NEGATIVE); GLUCOSE, URINE (UA) NEGATIVE (NEGATIVE); KETONES,URINE (UA) NEGATIVE (NEGATIVE); LEUKOCYTE ESTERASE, URINE MODERATE (NEGATIVE); NITRITE,URINE NEGATIVE (NEGATIVE); OCCULT BLOOD,URINE LARGE (NEGATIVE); PROTEIN,URINE NEGATIVE (NEGATIVE); UROBILINOGEN,URINE 0.2 (NORMAL) E.U./dL (NORMAL)
[2018-12-20 13:57] LABS: CLARITY,URINE HAZY (CLEAR)
[2018-12-20 14:12] LABS: BACTERIA,URINE Few /HPF (None Seen); SQUAMOUS EPITHELIAL CELL,UR NONE SEEN (<= Few)
[2018-12-20] MEDS ORDERED: ceFAZolin 2 GM in SODIUM CHLORIDE 0.9% MINIBAG 100 ML IV STA (16:09)
--- NOTE | 2018-12-20 16:10 | ANESTHESIA ---
Pre-Anesthesia VS, & Labs - Diagnosis vaginal bleeding, 2 weeks - Procedure Dilation and Curettage Vital Signs: Temp Pulse Resp BP Pulse Ox 36.3 C L 65 18 106/68 100 12/20/18 15:21 12/20/18 15:21 12/20/18 15:21 12/20/18 15:21 12/20/18 15:21 Height 5 ft 5 in Weight (kg) 52.163 kg Body Mass Index 19.1 - NPO >8 hours - Is Patient ?: No (2 weeks , bleeding) - Lab Results Current Lab Results: Laboratory Tests 12/20/18 12:39: Sodium 140, Potassium 3.9, Chloride 103, Carbon Dioxide 24, Anion Gap 13.0, BUN 15, Creatinine 0.7, Estimated GFR (MDRD) 107, Glucose 94, Calcium 9.2, Total Bilirubin 0.4, AST 21, ALT 20, Alkaline Phosphatase 115, Total Protein 6.8, Albumin 3.4, Globulin 3.4, Albumin/Globulin Ratio 1.0, Lipase 27 12/20/18 12:39: WBC 5.6, RBC 3.76 L, Hgb 10.0 L, Hct 30.8 L, MCV 81.9, MCH 26.6 L, MCHC 32.5, RDW 18.5 H, Plt Count 612 H, MPV 6.2 L, Neut # (Auto) 3.0, Lymph # (Auto) 1.8, [place] # (Auto) 0.4, Eos # (Auto) 0.3, Baso # (Auto) 0.1, Absolute Nucleated RBC 0.00, Nucleated RBC % 0.0 Fish Bones: 12/20/18 12:39 12/20/18 12:39 Home Medications and Allergies Pnv No.95/Ferrous Fum/Folic AC [ Caplet] 1 tab PO DAILY 10/11/18 Metronidazole [Flagyl] 500 mg PO BID 10/13/18 Nitrofurantoin [Macrobid] 100 mg PO BID 10/13/18 Vancomycin [Vancocin] 1 cap PO QID 10/13/18 Allergies/Adverse Reactions: Allergies Allergy/AdvReac Type Severity Reaction Status Date / Time ibuprofen AdvReac Unknown Verified 10/13/18 22:38 Anes History & Medical History - Anesthetic History Anesthesia Complications: reports: No previous complications - Medical History Cardiovascular: reports: None Pulmonary: reports: Asthma Gastrointestinal: reports: Crohn's disease Urinary: reports: None Neuro: reports: None Musculoskeletal: reports: None Endocrine/Autoimmune: reports: None Blood Disorders: reports: None Skin: reports: None Smoking Status: Never smoker - Surgical History General: Colonoscopy Exam General: Alert Dental: WNL Mouth Opening: Greater than 4 Fingerbreadths Neck Mobility: Normal Mallampati classification: II Respiratory: Lungs clear Cardiovascular: Regular rate Mental/Cognitive Status: Alert/Oriented X3 Plan Anesthesia Type: General Consent for Procedure(s) Verified and Reviewed: Yes Code Status: Attempt Resuscitation ASA classification: 2-Mild systemic disease Is this case an emergency?: Yes
[2018-12-20] MEDS ORDERED: BUPIVACAINE 0.5%-EPI 1:200000 PF 30 ML VIAL ONE (16:46)
[2018-12-20] MEDS ORDERED: LACTATED RINGERS 1,000 ML IV ONE (16:51)
[2018-12-20] MEDS ORDERED: BUPIVACAINE 0.5%-EPI 1:200000 PF 30 ML VIAL SUBQ ONE ×2 (16:56)
[2018-12-20] MEDS ORDERED: PROPOFOL 200 MG/20 ML VIAL IVP ONE ×2 (17:00)
[2018-12-20] MEDS ORDERED: DEXAMETHASONE 4 MG/ML VIAL IVP ONE ×2 (17:00)
[2018-12-20] MEDS ORDERED: GLYCOPYRROLATE 1 MG/5 ML VIAL IVP ONE ×2 (17:00)
[2018-12-20] MEDS ORDERED: MIDAZOLAM 2 MG/2 ML VIAL IVP ONE ×2 (17:00)
[2018-12-20] MEDS ORDERED: ONDANSETRON 4 MG/2 ML VIAL IVP ONE ×2 (17:00)
[2018-12-20] MEDS ORDERED: OXYTOCIN 10 UNIT/ML VIAL IV ONE ×2 (17:00)
[2018-12-20] MEDS ORDERED: LIDOCAINE-MPF 2% 5 ML VIAL IM ONE (17:00)
[2018-12-20] MEDS ORDERED: LIDOCAINE-MPF 1% 5 ML VIAL SUBQ ONE (17:00)
[2018-12-20] MEDS ORDERED: ACETAMINOPHEN 1,000 MG/100 ML 100 ML IV ONE ×2 (17:00)
[2018-12-20] MEDS ORDERED: fentaNYL 100 MCG/2 ML VIAL IVP ONE ×2 (17:00)
[2018-12-20] MEDS ORDERED: oxyCODONE 5 MG TABLET PO PRN ×2 (17:33→17:41)
[2018-12-20] MEDS ORDERED: LACTATED RINGERS 275 ML IV ONE (17:35)
--- NOTE | 2018-12-20 17:36 | OPERATIVE REPORT ---
Operative Report - General Procedure Date: 12/20/18 Planned Procedure: D&C Pre-Op Diagnosis: REtained products of conception Procedure Performed: D&C - Procedure Note Primary Surgeon: Jose Secondary Surgeon: herrera Anesthesia Technique: General LMA Pathology: products of conception IV Fluids (mL): 600 Estimated Blood Loss (mL): 30 Urine Output (mL): 40 Findings: empty uterus by ultrasound Complications: none
[2018-12-20] MEDS ORDERED: miSOPROStol 200 MCG TABLET PR ONE (17:44)
[2018-12-20 18:11] LABS: BILIRUBIN,URINE NEGATIVE (NEGATIVE); GLUCOSE, URINE (UA) NEGATIVE (NEGATIVE); KETONES,URINE (UA) NEGATIVE (NEGATIVE); LEUKOCYTE ESTERASE, URINE NEGATIVE (NEGATIVE); NITRITE,URINE NEGATIVE (NEGATIVE); OCCULT BLOOD,URINE NEGATIVE (NEGATIVE); PROTEIN,URINE NEGATIVE (NEGATIVE); UROBILINOGEN,URINE 0.2 (NORMAL) E.U./dL (NORMAL)
[2018-12-20 18:16] LABS: CLARITY,URINE CLEAR (CLEAR)
[2018-12-20 18:23] LABS: BACTERIA,URINE None Seen /HPF (None Seen); EPITHELIAL CELLS,UR FEW Transitional /HPF (<= Few); RBC,URINE None Seen /HPF (0-5); SQUAMOUS EPITHELIAL CELL,UR NONE SEEN (<= Few)
[2018-12-20 18:33] VITALS: BP 114/77
--- NOTE | 2018-12-20 21:39 | HISTORY & PHYSICAL EXAMINATION ---
DATE OF SERVICE: 12/20/2018 Physician: Denise Garcia MD CHIEF COMPLAINT: Vaginal bleeding. HISTORY OF PRESENT ILLNESS: The patient delivered two weeks ago at [place]. This was a spontaneous vaginal delivery at term and was uncomplicated. She was having quite a bit of vulvar pain after, but eventually was able to sit without problems and has been for at least a week. Since , she has noticed a fluctuation of her bleeding with a flare in the last two nights. For the last two days, occasionally she has bled through a super pad in 2 hours. Currently, her bleeding is light. This has been associated with some bilateral lower quadrant abdominal pain that was brief and once. Otherwise, nothing else new. Her bleeding is not malodorous and she has not noticed any fevers at home. REVIEW OF SYSTEMS: No dysuria or hematuria. No fatigue, fevers, chills, myalgias, rhinorrhea, congestion, sore throat, cough, abdominal pain, vomiting, diarrhea, weakness or syncope. PAST MEDICAL HISTORY 1. Crohn's disease. 2. Mild intermittent asthma, not requiring medications recently. 3. Depression with stable mood and not currently on medications. PAST SURGICAL HISTORY 1. Colonoscopy. 2. Tonsillectomy without problems. HOME MEDICATIONS: vitamins daily. ALLERGIES: NO TRUE DRUG ALLERGIES. THE PATIENT IS UNABLE TO TAKE IBUPROFEN DUE TO HER CROHN'S DISEASE. SOCIAL HISTORY: The patient is a [place] spouse. 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 No tobacco, alcohol or drug use. FAMILY HISTORY: No anesthesia complications. OB HISTORY: G1, P1 with an uncomplicated and delivery per patient. PHYSICAL EXAMINATION VITAL SIGNS: Temperature 36, heart rate 93, respirations 18, blood pressure 115/67, O2 saturation 99% on room air. GENERAL: The patient is alert and smiling, in no apparent distress. HEENT: Head is atraumatic, normocephalic. CARDIOVASCULAR: Regular rate and rhythm. No clicks, rubs, gallops, or murmurs. CHEST: Lungs are clear to auscultation bilaterally. ABDOMEN: Soft, nontender, nondistended. Fundus is firm, nontender and 13 weeks. BACK: Without CVA tenderness. SKIN: Without rashes. NEUROLOGIC: Alert and oriented. PSYCHIATRIC: Normal affect, speech pattern and thought content. LABORATORY DATA: White count 5.6, hematocrit 30.8, platelets 612. CMP is essentially normal. UA has no squamous epithelial, does have large blood, moderate leukocyte esterase, few bacteria and white blood cells present. STUDIES: Ultrasound today with a 2.5 cm area of endometrial thickening with vascular flow to the area consistent with retained products of conception. It is otherwise normal: ASSESSMENT AND PLAN 1. A 18-year-old G1, P1, 2 weeks status post spontaneous vaginal delivery at term, which was uncomplicated. Now, she has abnormal uterine bleeding due to retained products of conception. She does not appear to be currently infected. We will take her to the OR for D and C now. She was counseled to her alternatives which were not encouraged. These are expectant management. We could also try Mifepristone and Methergine but this was not encouraged and this would not be appropriate in the setting of breast feeding. Patient opts for surgical treatment. The procedure and recovery were reviewed. Risks including, but not limited to bleeding, infection, trauma to local organs, anesthesia complications and failure to remove all abnormal tissue were reviewed. All questions were answered and the consent was signed. The patient should be able to go home from same day surgery. She was offered to breastfeed or pump prior to going back to the OR and she declined. 2. The patient's UA is consistent with possible cystitis. It could also be just contaminated with lochia, although there were no squamous epithelials present. I will do an in-and-out catheterization in the OR to try to get a good urine specimen. If this does appear to be infected, she will be sent home on Keflex. Unfortunately, the patient did have a bout of C. difficile in October and so it would be good to avoid antibiotics if at all possible. As she is going to the OR and might have an infection, I am going to give her 2 g of Ancef IV now. Addendum: patient's catheterized UA was normal. She did receive the one dose of Ancef but was not sent home with Keflex. 3. For DVT prophylaxis, we will do REAGAN hose and SCDs. 4. Anemia with a hematocrit of 30. This is expected . 5. Crohn's disease. We will avoid all NSAIDs use. The patient will use Tylenol at home for postop pain control. TD: 12/20/2018 16:31 [facility]
--- NOTE | 2018-12-21 04:54 | OPERATIVE REPORT ---
DATE OF SERVICE: 12/20/2018 Physician: Denise Garcia MD PREOPERATIVE DIAGNOSIS: Retained products of conception. POSTOPERATIVE DIAGNOSIS: Retained products of conception. PROCEDURE PERFORMED: Dilation and curettage. SURGEON: Denise Garcia MD MICROELECTRONICS ASSEMBLER: None. ANESTHESIA: General via an LMA. ESTIMATED BLOOD LOSS: 30 mL URINE OUTPUT: 40 mL IV FLUIDS: 600 mL COUNTS: Correct x2. COMPLICATIONS: None apparent. DISPOSITION: Stable to the recovery room. SPECIMENS: Products of conception sent to pathology. PROPHYLAXIS: 2 grams of Ancef IV, SCDs, REAGAN hose. FINDINGS: The patient had a hymenal laceration at 5 o'clock from her vaginal delivery with suture ma terial and not seen outside. Her uterus was empty by the end of the procedure by ultrasound. INDICATIONS: The patient is two weeks status post spontaneous vaginal delivery at term and has had e xcessive bleeding since that time. An ultrasound revealed a 2.5 cm endometrial mass with color flow consistent with retained placenta. She did not appear to be infected. Her UA, however, appeared lik e she might have acute cystitis and so Ancef was given. DESCRIPTION OF PROCEDURE: The patient was brought to the operating room where she was induced with g eneral anesthesia. She was placed in low lithotomy in [facility]. A bimanual examination rev ealed an anteverted uterus and no adnexal masses. She was prepped and draped in the usual sterile fa shion. A catheterized urine was sent for a better evaluation of whether or not she has cystitis. A speculum was placed and a single-tooth tenaculum was applied to the anterior lip of the cervix. A pa racervical block was performed with 15 mL of 0.5% Marcaine with epinephrine. While injecting the pat ient's left side, she did experience an increase in her systolic blood pressure and an increase in va ginal bleeding consistent with probable intravascular injection of the local. This was tolerated wel l and there were not any complications from this. The cervix was sequentially checked with dilators. It was already dilated to 12 mm. An 11 mm curved suction curette was then inserted into the uterin e cavity and the products of conception were emptied with gentle passes. An ultrasound revealed an e mpty uterus. The patient did experience some bleeding that was deemed to be due to placental site bl eeding. She received Pitocin and will continue to receive this in the recovery room. She also recei gabbi 800 mcg of misoprostol per rectum. The blood and Betadine was washed from her body and she was r eturned to the supine position prior to waking. She should go home from the PACU and follow up at [facility]. TD: 12/20/2018 17:48
--- NOTE | 2018-12-22 17:08 | PROVIDER PROGRESS NOTE ---
Subjective - Subjective Subjective: Patient was discharged from the PACU in good condition on 12/20/18 after meeting PACU criteria. Objective - Lab Results Fish Bones: 12/20/18 12:39 12/20/18 12:39
== END 2018-12-20 16:01 | disposition home or self-care (01) ==
LOC: ED 12:00 → SDS 16:00
PROVIDERS: ATTEND Obstetrics & Gynecology
PROC: 10D17Z9 Manual Extraction of Products of Conception, Retained, Via Natural or Artificial Opening (ICD-10-PCS; principal; 2018-12-20 16:45)
DX: O72.2 Delayed and secondary postpartum hemorrhage (principal); R10.30 Lower abdominal pain, unspecified; J45.20 Mild intermittent asthma, uncomplicated; F32.9 Major depressive disorder, single episode, unspecified
CPT/HCPCS: 36415; 59160; 76830; 76856; 80053; 81001; 83690; 85025; 87086; 93976; 96374; 99283; 99284; J0131; J7120; 81003

== ENCOUNTER 2019-04-29 06:10 | Emergency (ER) | payer OTHER ==
[2019-04-29] MEDS ORDERED: SODIUM CHLORIDE 0.9% 1,000 ML IV STA (06:39)
[2019-04-29] MEDS ORDERED: ONDANSETRON 4 MG/2 ML VIAL IVP STA ×2 (06:39→07:26)
[2019-04-29 06:51] LABS: BASOPHILS # (AUTO) 0.1 10^3/uL (0.0-0.1); BASOPHILS % (AUTO) 0.8 %; EOSINOPHILS % (AUTO) 0.4 %; HGB - HEMOGLOBIN 10.4 g/dL (12.0-16.0); LYMPHOCYTES # (AUTO) 1.2 10^3/uL (1.5-3.5); LYMPHOCYTES % (AUTO) 15.6 %; MEAN CORPUSCULAR HEMOGLOBIN 22.9 pg (27.0-31.0); MEAN CORPUSCULAR HGB CONC 31.3 g/dL (32.0-36.0); MEAN PLATELET VOLUME 9.4 fL (7.9-10.8); MONOCYTES # (AUTO) 0.3 10^3/uL (0.0-1.0); MONOCYTES % (AUTO) 3.3 %; NEUTROPHILS # (AUTO) 6.3 10^3/uL (1.5-6.6); NEUTROPHILS % (AUTO) 79.5 %; PLT - PLATELET COUNT 363 10^3/uL (130-450); RED BLOOD COUNT 4.55 10^6/uL (4.20-5.40); RED CELL DISTRIBUTION WIDTH 19.7 % (12.0-15.0); WHITE BLOOD COUNT 7.9 x10^3/uL (4.8-10.8)
[2019-04-29 07:04] LABS: ALBUMIN 4.2 g/dL (3.2-5.5); ALBUMIN/GLOBULIN RATIO 1.3 (1.0-2.2); BILIRUBIN,TOTAL 0.5 mg/dL (0.2-1.0); CALCIUM 9.1 mg/dL (8.5-10.3); CREATININE 0.6 mg/dL (0.4-1.0); TOTAL PROTEIN 7.5 g/dL (6.7-8.2)
--- NOTE | 2019-04-29 07:26 | ED Physician Documentation ---
PD HPI NVD - Stated complaint Stated Complaint: VOMITING - Chief complaint Chief Complaint: Abd Pain - History obtained from History obtained from: Patient - History of Present Illness Timing - onset: How many hours ago (4) Timing - duration: Hours (4) Timing - details: Abrupt onset Pain level now: 0 Associated symptoms: No: Fever, Abdominal pain Improved by: Other (no ameliorating factors) Worsened by: Other (no exacerbating factors) Recently seen: Not recently seen - Additonal information Additional information: c/o sudden onset nausea, vomiting 4 hours [employer]. patient says she has vomited "ten times over last 4 hours". Denies diarrhea. On my HPI, she denies any pain including abdominal pain. She tells me this does not feel like this is one of her IBD flares. Review of Systems Constitutional: denies: Fever, Chills, Sweats Cardiac: reports: Reviewed and negative Respiratory: reports: Reviewed and negative GI: reports: Nausea, Vomiting. denies: Abdominal Pain, Constipation, Diarrhea : denies: Dysuria, Frequency PD PAST MEDICAL HISTORY - Past Medical History Past Medical History: Yes Cardiovascular: None Respiratory: Asthma Neuro: None Endocrine/Autoimmune: None GI: Ulcerative colitis : None Psych: Depression Musculoskeletal: None Derm: None - Past Surgical History Past Surgical History: Yes General: Colonoscopy - Present Medications Home Medications: Ambulatory Orders Medication Instructions Recorded Confirmed Ondansetron Odt [Zofran Odt] 4 mg TL Q6H PRN #14 tablet 04/29/19 - Allergies Allergies/Adverse Reactions: Allergies Allergy/AdvReac Type Severity Reaction Status Date / Time ibuprofen AdvReac Unknown Verified 04/29/19 06:17 - Social History Does the pt smoke?: No Smoking Status: Never smoker Does the pt drink ETOH?: No Does the pt have substance abuse?: No - Immunizations Immunizations are current?: Yes - POLST Patient has POLST: No PD ED PE NORMAL - Vitals Vital signs reviewed: Yes - General General: Alert and oriented X 3, No acute distress, Well developed/nourished - HEENT HEENT: Moist mucous membranes - Neck Neck: Supple, no meningeal sign - Cardiac Cardiac: RRR, No murmur - Respiratory Respiratory: No respiratory distress, Clear bilaterally - Abdomen Abdomen: Normal bowel sounds, Soft, Non tender, Non distended - Derm Derm: Normal color, Warm and dry Results - Vitals Vitals: Vital Signs - 24 hr 04/29/19 04/29/19 04/29/19 06:15 06:18 08:03 Temperature 36.3 C L Heart Rate 76 67 76 Respiratory 16 16 Rate Blood Pressure 115/64 105/59 L O2 Saturation 100 99 Oxygen O2 Source Room air - Labs Labs: Laboratory Tests 04/29/19 04/29/19 06:45 06:45 WBC 7.9 RBC 4.55 Hgb 10.4 L Hct 33.2 L MCV 73.0 L MCH 22.9 L MCHC 31.3 L RDW 19.7 H Plt Count 363 MPV 9.4 Neut # (Auto) 6.3 Lymph # (Auto) 1.2 L [place] # (Auto) 0.3 Eos # (Auto) 0.0 Baso # (Auto) 0.1 Absolute Nucleated RBC 0.00 Nucleated RBC % 0.0 Sodium 139 Potassium 3.7 Chloride 105 Carbon Dioxide 25 Anion Gap 9.0 BUN 13 Creatinine 0.6 Estimated GFR (MDRD) 127 Glucose 122 H Calcium 9.1 Total Bilirubin 0.5 AST 14 ALT 13 Alkaline Phosphatase 78 Total Protein 7.5 Albumin 4.2 Globulin 3.3 Albumin/Globulin Ratio 1.3 Lipase 29 PD MEDICAL DECISION MAKING - ED course Complexity details: reviewed results, re-evaluated patient, considered differential, d/w patient ED course: patient reported improvement with zofran 4mg IV, given second dose zofran 4mg IV for residual nausea. Reassuring blood tests. She feels well enough for d/c home, will return if worse Departure - Departure Disposition: 01 Home, Self Care Clinical Impression: Vomiting Qualifiers: Vomiting type: unspecified Vomiting Intractability: non-intractable Nausea presence: with nausea Qualified Code(s): R11.2 - Nausea with vomiting, unspecified Instructions: ED Nausea Vomiting Follow-Up: Ben Calixto ARNP [Primary Care Provider] - Prescriptions: Ondansetron Odt [Zofran Odt] 4 mg TL Q6H PRN #14 tablet PRN Reason: Nausea / Vomiting Discharge Date/Time: 04/29/19 08:15
[2019-04-29 08:04] VITALS: BP 105/59
== END 2019-04-29 08:15 | disposition home or self-care (01) ==
LOC: ED 06:10
DX: R11.2 Nausea with vomiting, unspecified (principal); Z87.19 Personal history of other diseases of the digestive system
CPT/HCPCS: 36415; 80053; 83690; 85025; 96361; 96374; 96376; 99284

== ENCOUNTER 2019-11-12 20:11 | Emergency (ER) | payer OTHER ==
[2019-11-12 20:44] LABS: RAPID STREP SCREEN Negative (Negative)
--- NOTE | 2019-11-12 21:44 | ED Physician Documentation ---
History of Present Illness - Stated complaint Stated Complaint: FLU SX - Chief complaint Chief Complaint: General - History obtained from History obtained from: Patient (The patient is a 19-year-old female who presents with a 2-day history of flulike symptoms, the patient reports that she has a history of ulcerative colitis and was treated with Remicade, she reports her last treatment was 3 years ago. She reports a mild headache she denies any severe headache or neck pain or rashes she otherwise reports she is healthy and up-to-date on all of her immunizations.She denies any chest pain, neck pain, shortness of breath she reports a mild sore throat mild headache and a mild cough.The patient denies any hematochezia or any dark tarry stools she denies any bright red blood per rectum she denies any heavy vaginal bleeding she denies any severe diarrhea she denies any hematemesis.) Review of Systems Constitutional: reports: Myalgias Eyes: reports: Reviewed and negative Ears: reports: Reviewed and negative Nose: reports: Reviewed and negative Throat: reports: Reviewed and negative Cardiac: reports: Reviewed and negative Respiratory: reports: Reviewed and negative GI: reports: Reviewed and negative : reports: Reviewed and negative Skin: reports: Reviewed and negative Musculoskeletal: reports: Reviewed and negative Neurologic: reports: Reviewed and negative Psychiatric: reports: Reviewed and negative Endocrine: reports: Reviewed and negative Immunocompromised: reports: Reviewed and negative PD PAST MEDICAL HISTORY - Past Medical History Past Medical History: Yes Cardiovascular: None Respiratory: Asthma Neuro: None Endocrine/Autoimmune: None GI: Ulcerative colitis : None HEENT: None Psych: Depression Musculoskeletal: None Derm: None - Past Surgical History Past Surgical History: Yes General: Colonoscopy - Present Medications Home Medications: Ambulatory Orders Medication Instructions Recorded Confirmed Ondansetron Odt [Zofran Odt] 4 mg TL Q6H PRN #14 tablet 04/29/19 - Allergies Allergies/Adverse Reactions: Allergies Allergy/AdvReac Type Severity Reaction Status Date / Time ibuprofen AdvReac Unknown Verified 11/12/19 20:13 - Social History Does the pt smoke?: No Smoking Status: Never smoker Does the pt drink ETOH?: No Does the pt have substance abuse?: No - Immunizations Immunizations are current?: Yes - POLST Patient has POLST: No PD ED PE NORMAL - Vitals Vital signs reviewed: Yes - General General: Alert and oriented X 3, No acute distress, Well developed/nourished - HEENT HEENT: Atraumatic, PERRL, Ears normal, Moist mucous membranes, Pharynx benign, Dentition benign - Neck Neck: Supple, no meningeal sign, No JVD - Cardiac Cardiac: RRR, No murmur, Strong equal pulses - Respiratory Respiratory: No respiratory distress, Clear bilaterally - Abdomen Abdomen: Normal bowel sounds, Soft, Non tender, Non distended, No organomegaly - Derm Derm: Normal color, Warm and dry, No rash - Extremities Extremities: No deformity, No tenderness to palpate, Normal ROM s pain, No edema, No calf tenderness / cord - Neuro Neuro: Alert and oriented X 3, molder shoulder pad 2-12 intact, No motor deficit, No sensory deficit, Normal speech - Psych Psych: Normal mood, Normal affect Results - Vitals Vitals: Vital Signs - 24 hr 11/12/19 11/12/19 11/12/19 20:13 23:31 23:37 Temperature 37.6 C H 36.9 C Heart Rate 109 H 93 88 Respiratory 20 20 16 Rate Blood Pressure 115/64 109/60 104/65 O2 Saturation 99 98 98 Oxygen O2 Source Room air - Labs Labs: Laboratory Tests 11/12/19 11/12/19 11/12/19 20:19 20:19 21:54 WBC 9.0 RBC 3.81 L Hgb 7.5 L Hct 25.6 L MCV 67.2 L MCH 19.7 L MCHC 29.3 L RDW 17.2 H Plt Count 354 MPV 8.5 Neut # (Auto) Not Reportable Lymph # (Auto) Not Reportable Gran[place] # (Auto) Not Reportable Eos # (Auto) Not Reportable Baso # (Auto) Not Reportable Absolute Nucleated RBC Not Reportable Total Counted 100 Band Neuts % (Manual) 3 Abnorm Lymph % (Manual) 0 Nucleated RBC % Not Reportable Neutrophils # (Manual) 4.9 Lymphocytes # (Manual) 2.1 Monocytes # (Manual) 1.1 H Eosinophils # (Manual) 0.7 Basophils # (Manual) 0.3 H Differential Comment MANUAL DIFFERENTIAL Manual Slide Review Indicated WBC Morphology NORMAL APPEARANCE Platelet Estimate NORMAL (130-450,000) Platelet Morphology NORMAL APPEARANCE RBC Morph Micro Appear 2+ MICROCYTOSIS Sodium Potassium Chloride Carbon Dioxide Anion Gap BUN Creatinine Estimated GFR (MDRD) Glucose Calcium Total Creatine Kinase Influenza A (Rapid) Negative Influenza B (Rapid) Negative Group A Strep Rapid Negative 11/12/19 21:54 WBC RBC Hgb Hct MCV MCH MCHC RDW Plt Count MPV Neut # (Auto) Lymph # (Auto) Granite # (Auto) Eos # (Auto) Baso # (Auto) Absolute Nucleated RBC Total Counted Band Neuts % (Manual) Abnorm Lymph % (Manual) Nucleated RBC % Neutrophils # (Manual) Lymphocytes # (Manual) Monocytes # (Manual) Eosinophils # (Manual) Basophils # (Manual) Differential Comment Manual Slide Review WBC Morphology Platelet Estimate Platelet Morphology RBC Morph Micro Appear Sodium 135 Potassium 3.6 Chloride 104 Carbon Dioxide 22 Anion Gap 9.0 BUN 12 Creatinine 0.6 Estimated GFR (MDRD) 126 Glucose 102 H Calcium 8.5 Total Creatine Kinase 73 Influenza A (Rapid) Influenza B (Rapid) Group A Strep Rapid PD MEDICAL DECISION MAKING - ED course Complexity details: re-evaluated patient (23:22 Patient reevaluated she is well- appearing, nontoxic, nonseptic appearing tolerated p.o. challenge her hemoglobin is low, she is previously had similar hemoglobin levels of 7 and has been discha rged home I did offer admission to this patient however the patient is refusing admission. the patient is requesting to be discharged home and follow-up with her medical provider at 8 AM in the morning. the patient has Medical decision- making capability and capacity accepts any and all risks to include sudden or disability.), other (History and physical exam are consistent with viral syndrome her influenza swabs are negative her strep is negative.She is afebrile, she currently is not immunosuppressed.Patient will be given IV, IV fluids and send a screening CBC and CMP and urinalysis.Patient will also be treated with IV Tylenol.) Departure - Departure Disposition: Home, Self Care Clinical Impression: Viral syndrome Anemia Qualifiers: Anemia type: unspecified type Qualified Code(s): D64.9 - Anemia, unspecified Condition: Fair Instructions: Anemia Follow-Up: Ben Calixto ARNP [Primary Care Provider] - Tomorrow Discharge Date/Time: 11/12/19 23:38
[2019-11-12] MEDS ORDERED: ACETAMINOPHEN 1,000 MG/100 ML 100 ML IV STA (21:46)
[2019-11-12] MEDS ORDERED: SODIUM CHLORIDE 0.9% 1,000 ML IV ONE (21:46)
[2019-11-12 21:58] LABS: BASOPHILS % (AUTO) 1.1 %; EOSINOPHILS % (AUTO) 13.1 %; HGB - HEMOGLOBIN 7.5 g/dL (12.0-16.0); LYMPHOCYTES % (AUTO) 22.5 %; MEAN CORPUSCULAR HEMOGLOBIN 19.7 pg (27.0-31.0); MEAN CORPUSCULAR HGB CONC 29.3 g/dL (32.0-36.0); MEAN CORPUSCULAR VOLUME 67.2 fL (81.0-99.0); MEAN PLATELET VOLUME 8.5 fL (7.9-10.8); MONOCYTES % (AUTO) 12.8 %; NEUTROPHILS % (AUTO) 50.1 %; PLT - PLATELET COUNT 354 10^3/uL (130-450); RED BLOOD COUNT 3.81 10^6/uL (4.20-5.40); RED CELL DISTRIBUTION WIDTH 17.2 % (12.0-15.0)
[2019-11-12 22:04] LABS: ABNORMAL LYMPHS % (MANUAL) 0 %
[2019-11-12 22:08] LABS: CALCIUM 8.5 mg/dL (8.5-10.3); CREATININE 0.6 mg/dL (0.4-1.0)
[2019-11-12 22:22] LABS: BAND NEUTROPHILS % (MANUAL) 3 %; BASOPHILS # (MANUAL) 0.3 10^3/uL (0-0.1); BASOPHILS % (MANUAL) 3 %; EOSINOPHILS # (MANUAL) 0.7 10^3/uL (0-0.7); LYMPHOCYTES # (MANUAL) 2.1 10^3/uL (1.5-3.5); LYMPHOCYTES % (MANUAL) 23 %; MONOCYTES # (MANUAL) 1.1 10^3/uL (0.0-1.0)
[2019-11-12 22:23] LABS: PLATELET ESTIMATE, MANUAL NORMAL (130-450,000) (NORMAL); PLATELET MORPHOLOGY NORMAL APPEARANCE (NORMAL)
[2019-11-12 22:24] LABS: DIFFERENTIAL COMMENT MANUAL DIFFERENTIAL
[2019-11-12 23:38] VITALS: BP 104/65
== END 2019-11-12 23:38 | disposition home or self-care (01) ==
LOC: ED 20:11
DX: B34.9 Viral infection, unspecified (principal); D64.9 Anemia, unspecified; Z87.19 Personal history of other diseases of the digestive system
CPT/HCPCS: 36415; 80048; 82550; 85025; 87070; 87275; 87276; 87430; 96365; 99284; J0131

== ENCOUNTER 2020-08-21 14:05 | Emergency (ER) | payer MEDICAID, OTHER ==
[2020-08-21 14:13] VITALS: BP 125/73
--- NOTE | 2020-08-21 14:26 | ED Physician Documentation ---
PD HPI FEMALE - Stated complaint Stated Complaint: FEMALE - Chief complaint Chief Complaint: UTI - History obtained from History obtained from: Patient - History of Present Illness Timing - onset: Yesterday Timing - duration: Days (1) Timing - details: Abrupt onset, Still present Associated symptoms: Dysuria, Urinary frequency Contributing factors: No: Similar symptoms before: Diagnosis (UTI) Recently seen: Not recently seen - Additional information Additional information: Previously well 19-year-old female has developed symptoms of urinary urgency frequency and dysuria without fever nausea or flank pain. She has had some chills. She has had urinary tract infection previously. She is allergic to ibuprofen. Review of Systems Constitutional: reports: Chills. denies: Fever Ears: denies: Ear pain Nose: denies: Congestion Throat: denies: Sore throat Respiratory: denies: Dyspnea, Cough GI: denies: Abdominal Pain, Nausea, Vomiting : reports: Dysuria, Frequency PD PAST MEDICAL HISTORY - Past Medical History Cardiovascular: None Respiratory: Asthma Neuro: None Endocrine/Autoimmune: None GI: Ulcerative colitis : None HEENT: None Psych: Depression Musculoskeletal: None Derm: None - Past Surgical History Past Surgical History: Yes General: Colonoscopy - Allergies Allergies/Adverse Reactions: Allergies Allergy/AdvReac Type Severity Reaction Status Date / Time ibuprofen AdvReac Unknown Verified 08/21/20 14:12 - Social History Does the pt smoke?: No Smoking Status: Never smoker Does the pt drink ETOH?: No Does the pt have substance abuse?: No - Immunizations Immunizations are current?: Yes - POLST Patient has POLST: No PD ED PE NORMAL - Vitals Vital signs reviewed: Yes (normal ) - General General: Alert and oriented X 3, No acute distress, Well developed/nourished - HEENT HEENT: Atraumatic, PERRL, EOMI - Neck Neck: Supple, no meningeal sign - Cardiac Cardiac: RRR, No murmur - Respiratory Respiratory: No respiratory distress, Clear bilaterally - Abdomen Abdomen: Soft, Non tender - Back Back: No CVA TTP, No spinal TTP - Derm Derm: Normal color, Warm and dry, No rash - Extremities Extremities: No deformity, No edema - Neuro Neuro: Alert and oriented X 3, electrical/instrument technician 2-12 intact, No motor deficit, No sensory deficit, Normal speech Eye Opening: Spontaneous Motor: Obeys Commands Verbal: Oriented GCS Score: 15 - Psych Psych: Normal mood, Normal affect Results - Vitals Vitals: Vital Signs - 24 hr 08/21/20 14:10 Temperature 36.1 C L Heart Rate 88 Respiratory 16 Rate Blood Pressure 125/73 O2 Saturation 100 Oxygen O2 Source Room air - Labs Labs: Laboratory Tests 08/21/20 14:20 Urine Color YELLOW Urine Clarity SL. CLOUDY Urine pH 6.0 Ur Specific [place] >=1.030 H Urine Protein NEGATIVE Urine Glucose (UA) NEGATIVE Urine Ketones NEGATIVE Urine Occult Blood MODERATE H Urine Nitrite NEGATIVE Urine Bilirubin NEGATIVE Urine Urobilinogen 0.2 (NORMAL) Ur Leukocyte Esterase NEGATIVE Urine RBC 6-10 H Urine WBC 0-3 Ur Squamous Epith Cells MOD Squamous H Urine Bacteria Few Ur Microscopic Review INDICATED Urine Culture Comments NOT INDICATED Urine HCG, Qual NEGATIVE PD MEDICAL DECISION MAKING - ED course Complexity details: considered differential, d/w patient ED course: 19 y/o female with one day history of dysuria has concentrated urine with trace blood. She is confronted with this and readily accepts that she would be dehydrated. She will hydrate at home and follow up with PMD for symptoms not resolved. Departure - Departure Disposition: Home, Self Care Clinical Impression: Cystitis, Dehydration Condition: Stable Instructions: ED Dehydration, ED Dysuria Uncertain Cause Follow-Up: Lu[facility] [Provider Group]
[2020-08-21 14:28] LABS: BILIRUBIN,URINE NEGATIVE (NEGATIVE); GLUCOSE, URINE (UA) NEGATIVE (NEGATIVE); KETONES,URINE (UA) NEGATIVE (NEGATIVE); LEUKOCYTE ESTERASE, URINE NEGATIVE (NEGATIVE); NITRITE,URINE NEGATIVE (NEGATIVE); OCCULT BLOOD,URINE MODERATE (NEGATIVE); PROTEIN,URINE NEGATIVE (NEGATIVE); UROBILINOGEN,URINE 0.2 (NORMAL) E.U./dL (NORMAL)
[2020-08-21 14:34] LABS: CLARITY,URINE SL. CLOUDY (CLEAR); HCG UR QUAL NEGATIVE
[2020-08-21 14:35] LABS: BACTERIA,URINE Few /HPF (None Seen); SQUAMOUS EPITHELIAL CELL,UR MOD Squamous (<= Few)
== END 2020-08-21 15:20 | disposition home or self-care (01) ==
LOC: ED 14:05
DX: E86.0 Dehydration (principal); N30.91 Cystitis, unspecified with hematuria
CPT/HCPCS: 81001; 81003; 81025; 87086; 99282; 99283

== ENCOUNTER 2020-11-08 08:32 | Inpatient (IN) | payer MEDICAID ==
[2020-11-08 09:19] LABS: EOSINOPHILS % (AUTO) 24.5 %; HCT - HEMATOCRIT 23.5 % (37.0-47.0); LYMPHOCYTES % (AUTO) 22.3 %; MEAN CORPUSCULAR HEMOGLOBIN 16.8 pg (27.0-31.0); MEAN CORPUSCULAR HGB CONC 26.4 g/dL (32.0-36.0); MEAN CORPUSCULAR VOLUME 63.7 fL (81.0-99.0); MEAN PLATELET VOLUME 8.8 fL (7.9-10.8); MONOCYTES % (AUTO) 7.7 %; NEUTROPHILS % (AUTO) 44.1 %; PLT - PLATELET COUNT 615 10^3/uL (130-450); RED BLOOD COUNT 3.69 10^6/uL (4.20-5.40); RED CELL DISTRIBUTION WIDTH 21.3 % (12.0-15.0); WHITE BLOOD COUNT 16.1 x10^3/uL (4.8-10.8)
[2020-11-08 09:23] LABS: HGB - HEMOGLOBIN 6.2 g/dL (12.0-16.0); SLIDE REVIEW? Indicated
--- NOTE | 2020-11-08 09:23 | ED Physician Documentation ---
History of Present Illness - Stated complaint Stated Complaint: ABD PX - Chief complaint Chief Complaint: Abd Pain - History obtained from History obtained from: Patient - Additonal information Additional information: Patient comes emergency department chief complaint of "colitis flare" for the last 2 months. The patient states she has been having lower abdominal pain and cramping with 10-20 bowel movements per 24 hours. She states the bowel movements are mostly watery diarrhea and mucus and blood. She states that this has been going on for 2 months and that she is has not sought medical inter vention for this. She used to have a specialist down in [place], but has not seen them in some years. Her last colonoscopy was 2 years ago. Patient has a history of ulcerative colitis. Patient states that she has been becoming increasingly lightheaded, especially when she stands up and even feels as though she is going to blackout. She states she feels dehydrated and just weak. No other complaints at this time. No fevers or chills. No nausea or vomiting. She has previously been on Humira, but states this did not agree well with her, so she got off. She is not been on anything for her ulcerative colitis since. Review of Systems Ten Systems: 10 systems reviewed and negative Constitutional: reports: Reviewed and negative Eyes: reports: Reviewed and negative Ears: reports: Reviewed and negative Nose: reports: Reviewed and negative Throat: reports: Reviewed and negative Cardiac: reports: Reviewed and negative Respiratory: reports: Reviewed and negative GI: reports: Abdominal Pain, Diarrhea : reports: Reviewed and negative Skin: reports: Reviewed and negative Musculoskeletal: reports: Reviewed and negative Neurologic: reports: Reviewed and negative Psychiatric: reports: Reviewed and negative Endocrine: reports: Reviewed and negative Immunocompromised: reports: Reviewed and negative PD PAST MEDICAL HISTORY - Past Medical History Cardiovascular: None Respiratory: Asthma Neuro: None Endocrine/Autoimmune: None GI: Ulcerative colitis : None HEENT: None Psych: Depression Musculoskeletal: None Derm: None - Past Surgical History Past Surgical History: Yes General: Colonoscopy - Present Medications Home Medications: Ambulatory Orders Medication Instructions Recorded Confirmed No Known Home Medications 11/08/20 11/08/20 - Allergies Allergies/Adverse Reactions: Allergies Allergy/AdvReac Type Severity Reaction Status Date / Time ibuprofen AdvReac Unknown Verified 11/08/20 08:43 - Social History Does the pt smoke?: No Smoking Status: Never smoker Does the pt drink ETOH?: No Does the pt have substance abuse?: No - Immunizations Immunizations are current?: Yes - POLST Patient has POLST: No PD ED PE NORMAL - Vitals Vital signs reviewed: Yes - General General: Alert and oriented X 3, No acute distress - HEENT HEENT: Atraumatic, PERRL, EOMI, Moist mucous membranes - Neck Neck: Supple, no meningeal sign - Cardiac Cardiac: RRR, No murmur, Strong equal pulses - Respiratory Respiratory: No respiratory distress, Clear bilaterally - Abdomen Abdomen: Soft, Non distended, Other (Mild diffuse lower abdominal tenderness. No rebound or guarding.) - Derm Derm: Warm and dry, No rash, Other (Marked pallor.) - Extremities Extremities: No deformity, No edema, No calf tenderness / cord - Neuro Neuro: Alert and oriented X 3 - Psych Psych: Normal mood, Normal affect Results - Vitals Vitals: Vital Signs - 24 hr 11/08/20 11/08/20 11/08/20 08:44 09:43 11:00 Temperature 36.7 C 37.4 C Heart Rate 110 H 80 80 Respiratory 18 16 18 Rate Blood Pressure 120/72 114/78 106/64 O2 Saturation 100 100 11/08/20 11/08/20 11:11 11:25 Temperature 37.3 C 37.3 C Heart Rate 73 72 Respiratory 16 14 Rate Blood Pressure 103/72 111/54 L O2 Saturation Oxygen O2 Source Room air - Labs Labs: Laboratory Tests 11/08/20 11/08/20 11/08/20 09:05 09:05 09:05 WBC 16.1 H RBC 3.69 L Hgb 6.2 L* Hct 23.5 L MCV 63.7 L MCH 16.8 L MCHC 26.4 L RDW 21.3 H Plt Count 615 H MPV 8.8 Neut # (Auto) Not Reportable Lymph # (Auto) Not Reportable [place] # (Auto) Not Reportable Eos # (Auto) Not Reportable Baso # (Auto) Not Reportable Absolute Nucleated RBC Not Reportable Total Counted 100 Band Neuts % (Manual) 3 Abnorm Lymph % (Manual) 0 Nucleated RBC % Not Reportable Neutrophils # (Manual) 8.7 H Lymphocytes # (Manual) 3.9 H Monocytes # (Manual) 0.3 Eosinophils # (Manual) 3.2 H Basophils # (Manual) 0.0 Differential Comment MANUAL DIFFERENTIAL Manual Slide Review Indicated WBC Morphology NORMAL APPEARANCE Platelet Estimate INCREASED (>450,000) Platelet Morphology NORMAL MARIA RBC Morph Micro Appear 3+ MICROCYTOSIS ESR 59 H PT INR Sodium 137 Potassium 4.0 Chloride 103 Carbon Dioxide 23 Anion Gap 11.0 BUN 11 Creatinine 0.8 Estimated GFR (MDRD) 90 Glucose 110 H Calcium 9.0 Total Bilirubin 0.4 AST 14 ALT 11 Alkaline Phosphatase 70 C-Reactive Protein < 1.0 Total Protein 7.6 Albumin 3.7 Globulin 3.9 Albumin/Globulin Ratio 0.9 L Lipase 24 Serum HCG, Qual Nasal Adenovirus (PCR) Nasal B. parapertussis DNA (PCR) Nasal Coronavir 229E PCR Nasal Coronavir HKU1 PCR Nasal Coronavir NL63 PCR Nasal Coronavir OC43 PCR Nasal Enterovir/Rhinovir PCR Nasal Influenza B PCR Nasal Influenza A PCR Nasal Parainfluen 1 PCR Nasal Parainfluen 2 PCR Nasal Parainfluen 3 PCR Nasal Parainfluen 4 PCR Nasal RSV (PCR) Nasal B.pertussis DNA PCR Nasal C.pneumoniae (PCR) Douglas Human Metapneumo PCR Nasal M.pneumoniae (PCR) Nasal SARS-CoV-2 (PCR) Blood Type Antibody Screen Crossmatch IS Only 11/08/20 11/08/20 11/08/20 09:05 09:34 09:34 WBC RBC Hgb Hct MCV MCH MCHC RDW Plt Count MPV Neut # (Auto) Lymph # (Auto) [place] # (Auto) Eos # (Auto) Baso # (Auto) Absolute Nucleated RBC Total Counted Band Neuts % (Manual) Abnorm Lymph % (Manual) Nucleated RBC % Neutrophils # (Manual) Lymphocytes # (Manual) Monocytes # (Manual) Eosinophils # (Manual) Basophils # (Manual) Differential Comment Manual Slide Review WBC Morphology Platelet Estimate Platelet Morphology RBC Morph Micro Appear ESR PT 13.8 H INR 1.2 Sodium Potassium Chloride Carbon Dioxide Anion Gap BUN Creatinine Estimated GFR (MDRD) Glucose Calcium Total Bilirubin AST ALT Alkaline Phosphatase C-Reactive Protein Total Protein Albumin Globulin Albumin/Globulin Ratio Lipase Serum HCG, Qual NEGATIVE Nasal Adenovirus (PCR) Nasal B. parapertussis DNA (PCR) Nasal Coronavir 229E PCR Nasal Coronavir HKU1 PCR Nasal Coronavir NL63 PCR Nasal Coronavir OC43 PCR Nasal Enterovir/Rhinovir PCR Nasal Influenza B PCR Nasal Influenza A PCR Nasal Parainfluen 1 PCR Nasal Parainfluen 2 PCR Nasal Parainfluen 3 PCR Nasal Parainfluen 4 PCR Nasal RSV (PCR) Nasal B.pertussis DNA PCR Nasal C.pneumoniae (PCR) Douglas Human Metapneumo PCR Nasal M.pneumoniae (PCR) Nasal SARS-CoV-2 (PCR) Blood Type B POSITIVE Antibody Screen NEGATIVE Crossmatch IS Only See Detail 11/08/20 11:36 WBC RBC Hgb Hct MCV MCH MCHC RDW Plt Count MPV Neut # (Auto) Lymph # (Auto) [place] # (Auto) Eos # (Auto) Baso # (Auto) Absolute Nucleated RBC Total Counted Band Neuts % (Manual) Abnorm Lymph % (Manual) Nucleated RBC % Neutrophils # (Manual) Lymphocytes # (Manual) Monocytes # (Manual) Eosinophils # (Manual) Basophils # (Manual) Differential Comment Manual Slide Review WBC Morphology Platelet Estimate Platelet Morphology RBC Morph Micro Appear ESR PT INR Sodium Potassium Chloride Carbon Dioxide Anion Gap BUN Creatinine Estimated GFR (MDRD) Glucose Calcium Total Bilirubin AST ALT Alkaline Phosphatase C-Reactive Protein Total Protein Albumin Globulin Albumin/Globulin Ratio Lipase Serum HCG, Qual Nasal Adenovirus (PCR) NOT DETECTED Nasal B. parapertussis DNA (PCR) NOT DETECTED Nasal Coronavir 229E PCR NOT DETECTED Nasal Coronavir HKU1 PCR NOT DETECTED Nasal Coronavir NL63 PCR NOT DETECTED Nasal Coronavir OC43 PCR NOT DETECTED Nasal Enterovir/Rhinovir PCR NOT DETECTED Nasal Influenza B PCR NOT DETECTED Nasal Influenza A PCR NOT DETECTED Nasal Parainfluen 1 PCR NOT DETECTED Nasal Parainfluen 2 PCR NOT DETECTED Nasal Parainfluen 3 PCR NOT DETECTED Nasal Parainfluen 4 PCR NOT DETECTED Nasal RSV (PCR) NOT DETECTED Nasal B.pertussis DNA PCR NOT DETECTED Nasal C.pneumoniae (PCR) NOT DETECTED Douglas Human Metapneumo PCR NOT DETECTED Nasal M.pneumoniae (PCR) NOT DETECTED Nasal SARS-CoV-2 (PCR) NOT DETECTED Blood Type Antibody Screen Crossmatch IS Only - Rads (name of study) CT abd/pelvis Radiology: Final report received, EMP read indepedently, See rad report (large bowel wall thickening) PD MEDICAL DECISION MAKING - ED course Complexity details: reviewed results, re-evaluated patient, considered differential, d/w patient ED course: Patient was worked up with labs, and found to have a very low hemoglobin of 6.1. This was not surprising, given the degree of pallor and the symptoms that the patient had been having. A type and cross of 2 units of blood was performed and transfusion was begun in the emergency department. Remainder of patient's work- up, including CT scan of the abdomen and pelvis, did not show any acutely worrisome findings. The patient did have some thickening of her large bowel on CT, which is not surprising, given the history of ulcerative colitis. I spoke with Dr. Hairston of surgery, who stated he would be happy to consult. He requested a hepatitis panel and a QuantiFERON gold, and these were ordered. I spoke with Dr. Travis, who is on-call for hospitalist service, and he did agree to primarily admit the patient, as per Dr. Hairston' request. The patient remained otherwise stable throughout her stay in the emergency department. Departure - Departure Disposition: [facility] DC/Lilian Clinical Impression: Lower GI bleed, Severe anemia Condition: Serious Discharge Date/Time: 11/08/20 12:30
[2020-11-08] MEDS ORDERED: SODIUM CHLORIDE 0.9% 1,000 ML IV STA (09:24)
[2020-11-08 09:37] LABS: ALBUMIN 3.7 g/dL (3.2-5.5); ALBUMIN/GLOBULIN RATIO 0.9 (1.0-2.2); ALKALINE PHOSPHATASE 70 IU/L (42-121); ALT ALANINE AMINOTRANSFERASE 11 IU/L (10-60); AST ASPARTATE AMINOTRANSFERASE 14 IU/L (10-42); BILIRUBIN,TOTAL 0.4 mg/dL (0.2-1.0); BUN - BLOOD UREA NITROGEN 11 mg/dL (6-20); CARBON DIOXIDE - CO2 23 mmol/L (21-32); CHLORIDE 103 mmol/L (101-111); CREATININE 0.8 mg/dL (0.4-1.0); GFR - MDRD 90 (>89); GLUCOSE 110 mg/dL (70-100); LIPASE 24 U/L (22-51); SODIUM 137 mmol/L (135-145); TOTAL PROTEIN 7.6 g/dL (6.7-8.2)
[2020-11-08 09:38] LABS: CRP - C-REACTIVE PROTEIN < 1.0 mg/dL (0-1.0)
[2020-11-08 09:59] LABS: INR 1.2 (0.8-1.2); PT - PROTHROMBIN TIME 13.8 secs (9.9-12.6)
[2020-11-08 10:10] LABS: ABNORMAL LYMPHS % (MANUAL) 0 %
[2020-11-08 10:16] LABS: BAND NEUTROPHILS % (MANUAL) 3 %; EOSINOPHILS # (MANUAL) 3.2 10^3/uL (0-0.7); LYMPHOCYTES # (MANUAL) 3.9 10^3/uL (1.5-3.5); LYMPHOCYTES % (MANUAL) 24 %; MONOCYTES # (MANUAL) 0.3 10^3/uL (0.0-1.0); NEUTROPHILS # (MANUAL) 8.7 10^3/uL (1.5-6.6)
[2020-11-08 10:19] LABS: PLATELET ESTIMATE, MANUAL INCREASED (>450,000) (NORMAL); WBC MORPHOLOGY (MULTIPLE) NORMAL APPEARANCE (NORMAL)
[2020-11-08 10:22] LABS: DIFFERENTIAL COMMENT MANUAL DIFFERENTIAL; PLATELET MORPHOLOGY NORMAL APP (NORMAL)
[2020-11-08] MEDS ORDERED: IOVERSOL 320 100 ML VIAL IVP ONE ×2 (10:36→12:00)
[2020-11-08 10:49] LABS: HCG,QUALITATIVE BLOOD NEGATIVE
--- NOTE | 2020-11-08 10:50 | CT Report ---
PROCEDURE: Abdomen/Pelvis W INDICATIONS: low abd pain, blood per rectum CONTRAST: IV CONTRAST: Optiray 320 ml: 100 PO CONTRAST: *NO PO CONTRAST TECHNIQUE: After the administration of IV contrast, 5 mm thick sections acquired from the diaphragms to the symp hysis. 5 mm thick coronal and sagittal reformats were acquired. For radiation dose reduction, the f ollowing was used: automated exposure control, adjustment of mA and/or kV according to patient size. COMPARISON: 06/10/2017 CT examination FINDINGS: Image quality: Excellent. ABDOMEN: Lung bases: Lung bases are clear. Heart size is normal. Solid organs: Liver and spleen are normal in size and enhancement. Gallbladder is within normal macias its Biliary system is non dilated. Pancreas enhances normally. No adrenal nodules. Kidneys demons trate normal size and enhancement, without hydronephrosis. Peritoneum and bowel: The stomach and small bowel are grossly unremarkable. Appendix is within normal limits. There is no evidence of colonic distention. There is moderate thickening of the descending c olon and sigmoid colon. No free fluid or air. Nodes and vessels: Mildly prominent retroperitoneal lymph nodes in the left para-aortic location are present, measuring less than 10 mm short axis, as before. Mildly prominent lymph nodes within the mes entery are present measuring less than 10 mm short axis. Aorta and inferior vena cava are normal in s ize. Miscellaneous: No ventral hernias. PELVIS: Genitourinary: Bladder wall thickness is normal. Intrauterine device is present. Miscellaneous: No inguinal hernias or adenopathy. Bones: No suspicious bony lesions. No vertebral body compression fractures. IMPRESSION: 1. Thickening of the descending and sigmoid colon. Differential considerations include infection, inf lammation, and ischemia. 2. Mildly prominent mesenteric and retroperitoneal lymph nodes, possibly indicating reactive lymph no de enlargement. 3. Normal appendix. Reviewed by: Kevin Gonzalez MD on 11/08/2020 10:49 AM [facility] Approved by: Kevin Gonzalez MD on 11/08/2020 10:49 AM PST Station ID: [id number]
[2020-11-08] MEDS ORDERED: ONDANSETRON 4 MG/2 ML VIAL IVP PRN (11:48)
[2020-11-08] MEDS ORDERED: HYDROmorphone 0.5 MG/0.5 ML SYRINGE IVP PRN (11:48)
[2020-11-08] MEDS ORDERED: HYDROcod/ACETAM 5/325 MG TABLET PO PRN (11:48)
--- NOTE | 2020-11-08 11:54 | HISTORY & PHYSICAL EXAMINATION ---
Chief Complaint - Chief Complaint Chief Complaint: frequent bloody diarrhea History of Present Illness - Admitted From Admitted From:: [facility] ED - History Obtained From Records Reviewed: yes History obtained from: patient - History of Present Illness HPI Comment/Other: Patient is a 20-year-old female with history significant for ulcerative colitis who presented to the ED ED at the behest of her mom with complaints of frequent bloody stools. She describes experiencing about 10-20 episodes of stools with blood in them daily. Her symptoms have been going on intermittently for a couple of months. They are usually worse after eating. Consequently she has not been eating. She was diagnosed with Ulcerative Colitis at the age of 11. She has been on mesalamine, sulfasalazine and Remicade in the past. The most recent of this medications Remicade she stopped because she was constantly feeling nauseous. She has also seen a restaurant greeter by name Dr Raquel Avelar in [place]. She was last seen 2 years ago. That also happens to be the time when she last had a colonoscopy. She denies chest pain, dyspnea or fever. She reports nausea, sharp stabbing intermittent abdominal pain and chills. In the ED she was found to have a hemoglobin of 6.2 and a WBC of 16. She was also noted to have Bright red blood per rectum. CT of the abdomen pelvis showed thickening of the descending and sigmoid colon. Differential considerations included infectious, inflammation and ischemia. Mildly prominent mesenteric and retroperitoneal lymph nodes, possible indicating reactive lymph node enlargement. Normal appendix. As a result she was presented for admission for further work-up and treatment. Dr. Scotty Hairston with general surgery was contacted by the ED physician and was in agreement to see the patient in consult. History - Past Medical History Cardiovascular: reports: None Respiratory: reports: Asthma Neuro: reports: None Endocrine/Autoimmune: reports: None GI: reports: Ulcerative colitis : reports: None HEENT: reports: None Psych: reports: Depression Musculoskeletal: reports: None Derm: reports: None MRSA Hx?: No - Past Surgical History General: reports: Colonoscopy HEENT: reports: Tonsil/Adenoidectomy - Family & Social History Family History Comment/Other: She denied any significant family history. Living arrangement: At home Social History Notes: She lives at home with her boyfriend. She does not use tobacco products or alcohol. She uses marijuana occasionally. - POLST Patient has POLST: No POLST Status: Full Code Meds/Allgy - Home Medications Home Medications: Ambulatory Orders Medication Instructions Recorded Confirmed No Known Home Medications 11/08/20 11/08/20 - Allergies Allergies/Adverse Reactions: Allergies Allergy/AdvReac Type Severity Reaction Status Date / Time ibuprofen AdvReac Unknown Verified 11/08/20 08:43 Review of Systems - Constitutional Constitutional: reports: Chills, Poor appetite. denies: Fatigue, Fever - Eyes Eyes: denies: Pain, Dipolpia - Ears, Nose & Throat Ears, Nose & Throat: denies: Ear pain, Sore throat - Cardiovascular Cariovascular: reports: Lightheadedness. denies: Irregular heart rate, Palpitations, Chest pain, Edema - Respiratory Respiratory: denies: Cough, Sputum production, Wheezing, SOB at rest, SOB with exertion - Gastrointestinal Gastrointestinal: reports: Abdominal pain, Diarrhea, Bloody stools, Nausea. denies: Constipation, Vomiting - Genitourinary Genitourinary: denies: Dysuria, Frequency, Urgency, Hematuria, Incontinence, Flank pain - Musculoskeletal Musculoskeletal: denies: Muscle pain, Back pain, Muscle aches, Stiffness - Integumentary Integumentary: denies: Rash, Pruritis, Lesions, Dryness - Neurological Neurological: reports: Headache. denies: General weakness, Focal weakness - Psychiatric Psychiatric: denies: Depression, Anxiety - Endocrine Endocrine: denies: Polyuria, Polydypsia - Hematologic/Lymphatic Hematologic/Lymphatic: reports: Anemia. denies: Bruising, Petechiae Prior Level of Functionality: She is independent of activities of daily living Exam - Vital Signs Vital Signs: Vital Signs x48h Temp Pulse Resp BP Pulse Ox 11/08/20 11:11 37.3 C 73 16 103/72 11/08/20 11:00 37.4 C 80 18 106/64 11/08/20 09:43 80 16 114/78 100 11/08/20 08:44 36.7 C 110 H 18 120/72 100 - Physical Exam General Appearance: positive: Alert, Mild distress, Moderate distress Eyes Bilateral: positive: PERRL, EOMI ENT: positive: Dry mucous membranes Neck: positive: No JVD, Trachea midline Respiratory: positive: Chest non-tender, No respiratory distress, Breath sounds nml. negative: Wheezes, Rales, Rhonchi Cardiovascular: positive: No murmur, Tachycardia Abdomen: positive: No organomegaly, Nml bowel sounds, No distention, Tenderness. negative: Guarding, Rebound Rectal: positive: Bloody stool Back: negative: Nml inspection Skin: positive: Color nml, No rash, Warm, Dry Extremities: positive: Non-tender, Full ROM, Nml appearance. negative: No pedal edema, Pedal edema, Calf tenderness Neurologic/Psychiatric: positive: Oriented x3, Mood/affect nml Conclusion/Plan - Problem List (1) Ulcerative colitis Conclusion/Plan: Made n.p.o. except for meds. Patient receiving IV hydration with D5 half-normal saline at 100 mils per hour. Hydrocortisone 100 mg [address] Scotty Hairston with general surgery consulted. Hepatitis panel, QuantiFERON gold, stool cultures, stool leukocytes, stool ova and parasites, C. difficile, Giardia and calprotectin have been ordered Potential plan for a colonoscopy in 2 to 3 days. Qualifiers: Ulcerative colitis location: unspecified ulcerative colitis location Digestive disease complication type: unspecified complication Qualified Code(s): K51.919 - Ulcerative colitis, unspecified with unspecified complications (2) Lower GI bleed Conclusion/Plan: Likely secondary to ulcerative colitis. Treatment as stated above. Potential plan for colonoscopy in about 2 to 3 days. (3) Anemia Conclusion/Plan: Acute blood loss anemia related to Ulcerative colitis. Hgb was 6.2 Patient receiving 2 units of packed red blood cells. We will monitor H&H daily. Patient started on hydrocortisone 100 mg 3 times daily. We will continue to monitor. Qualifiers: Anemia type: unspecified type Qualified Code(s): D64.9 - Anemia, unspecified - Lab Results Fish Bones: 11/08/20 09:05 11/08/20 09:05 Core Measures - Anticipated LOS I expect patient to be DC'd or transferred within 96 hours.: Yes - DVT/VTE - Prophylaxis VTE/DVT Device ordered at admit?: Yes VTE/DVT Prophylaxis med ordered at admit?: No
[2020-11-08 12:39] LABS: B. PARAPERTUSSIS- RESP PCR PAN NOT DETECTED; B. PERTUSSIS- RESP PCR PANEL NOT DETECTED; CORONAVIRUS 229E-RESP PCR NOT DETECTED; CORONAVIRUS HKU1-RESP PCR NOT DETECTED; CORONAVIRUS NL63-RESP PCR NOT DETECTED; CORONAVIRUS OC43-RESP PCR NOT DETECTED; HUMAN METAPNEUMOVIRUS NOT DETECTED; INFLUENZA A- RESP PCR PANEL NOT DETECTED; INFLUENZA B - RESP PCR PANEL NOT DETECTED; PARAINFLUENZA VIRUS 1 NOT DETECTED; PARAINFLUENZA VIRUS 2 NOT DETECTED; PARAINFLUENZA VIRUS 3 NOT DETECTED; PARAINFLUENZA VIRUS 4 NOT DETECTED; RHINOVIRUS/ENTEROVIRUS NOT DETECTED; RSV- RESP PCR PANEL NOT DETECTED; SARS-CoV-2 -RESP PCR PANEL NOT DETECTED
[2020-11-08 12:40] LABS: C. PNEUMONIAE- RESP PCR PANEL NOT DETECTED; M. PNEUMONIAE- RESP PCR PANEL NOT DETECTED
[2020-11-08] MEDS: PANTOPRAZOLE 40 MG VIAL IVP SCH (13:08)
[2020-11-08] MEDS: SODIUM CHLORIDE FLUSH 0.9% 10 ML SYRINGE IVP PRN (13:08)
--- NOTE | 2020-11-08 15:31 | CONSULTATION NOTE ---
Referring Provider Name of Referring Provider:: Dr. Travis Consult Date: 11/08/20 Chief Complaint - Chief Complaint Chief Complaint: Blood Diarrhea/Anemia/Colitis History of Present Illness - Admitted From Admitted From:: Home - History Obtained From Records Reviewed: EMR History obtained from: Patient Exam Limitations: None - History of Present Illness HPI Comment/Other: 20-year-old female who presents with worsening bloody diarrhea/exacerbation of known ulcerative colitis. He was diagnosed at age 10 and has been on ASA derivatives since. She has not been, by report, on any biologic therapy during her disease course. Her last colonoscopy was 2 years prior and revealed disease in general remission. She reports over the last year her bowel movements have progressively become worse and now amount to 10 to 20/day and all are bloody. She reports abdominal discomfort as well. She was admitted through the emergency room with acute on chronic blood loss anemia. Colorectal surgical consultation obtained. History - Past Medical History Cardiovascular: reports: None Respiratory: reports: Asthma Neuro: reports: None Endocrine/Autoimmune: reports: None GI: reports: Ulcerative colitis : reports: None HEENT: reports: None Psych: reports: Depression Musculoskeletal: reports: None Derm: reports: None MRSA Hx?: No - Past Surgical History General: reports: Colonoscopy HEENT: reports: Tonsil/Adenoidectomy - Family & Social History Family History Comment/Other: She denied any significant family history. Living arrangement: At home Social History Notes: She lives at home with her boyfriend. She does not use tobacco products or alcohol. She uses marijuana occasionally. - POLST Patient has POLST: No POLST Status: Full Code Meds/Allgy - Home Medications Home Medications: Ambulatory Orders Medication Instructions Recorded Confirmed No Known Home Medications 11/08/20 11/08/20 - Allergies Allergies/Adverse Reactions: Allergies Allergy/AdvReac Type Severity Reaction Status Date / Time ibuprofen AdvReac Unknown Verified 11/08/20 08:43 Review of Systems - Constitutional Constitutional: reports: Fatigue, Chills - Gastrointestinal Gastrointestinal: reports: Abdominal pain, Diarrhea, Bloody stools Exam - Vital Signs Vital Signs: Vital Signs x48h Temp Pulse Resp BP BP Pulse Ox 11/08/20 15:15 112/64 11/08/20 14:56 36.6 C 84 17 113/71 11/08/20 14:43 36.6 C 84 17 113/71 11/08/20 11:25 37.3 C 72 14 111/54 L 11/08/20 11:11 37.3 C 73 16 103/72 11/08/20 11:00 37.4 C 80 18 106/64 11/08/20 09:43 80 16 114/78 100 11/08/20 08:44 36.7 C 110 H 18 120/72 100 - Physical Exam General Appearance: positive: No acute distress, Alert Eyes Bilateral: positive: Normal inspection, PERRL, EOMI ENT: positive: ENT inspection nml Neck: positive: Nml inspection Respiratory: positive: Chest non-tender, No respiratory distress, Breath sounds nml. negative: Wheezes, Rales, Rhonchi Cardiovascular: positive: Regular rate & rhythm Abdomen: positive: No distention, Other (Soft, positive tenderness to deep palpation left lower quadrant.). negative: Guarding, Rebound Rectal: positive: Other (Deferred) Back: positive: Nml inspection Skin: positive: Pallor Neurologic/Psychiatric: positive: Oriented x3, CN's nml (2-12), Motor nml, Sensation nml, Mood/affect nml Conclusion and Plan - Lab Results Laboratory Results 11/08/20 14:36: Stool Leukocytes, Qual POSITIVE 11/08/20 11:36: Nasal Adenovirus (PCR) NOT DETECTED, Nasal B. parapertussis DNA (PCR) NOT DETECTED, Nasal Coronavir 229E PCR NOT DETECTED, Nasal Coronavir HKU1 PCR NOT DETECTED, Nasal Coronavir NL63 PCR NOT DETECTED, Nasal Coronavir OC43 PCR NOT DETECTED, Nasal Enterovir/Rhinovir PCR NOT DETECTED, Nasal Influenza B PCR NOT DETECTED, Nasal Influenza A PCR NOT DETECTED, Nasal Parainfluen 1 PCR NOT DETECTED, Nasal Parainfluen 2 PCR NOT DETECTED, Nasal Parainfluen 3 PCR NOT DETECTED, Nasal Parainfluen 4 PCR NOT DETECTED, Nasal RSV (PCR) NOT DETECTED, Nasal B.pertussis DNA PCR NOT DETECTED, Nasal C.pneumoniae (PCR) NOT DETECTED, Douglas Human Metapneumo PCR NOT DETECTED, Nasal M.pneumoniae (PCR) NOT DETECTED, Nasal SARS-CoV-2 (PCR) NOT DETECTED 11/08/20 09:34: Blood Type B POSITIVE, Antibody Screen NEGATIVE, Crossmatch IS Only See Detail 11/08/20 09:34: PT 13.8 H, INR 1.2 11/08/20 09:05: Serum HCG, Qual NEGATIVE 11/08/20 09:05: Sodium 137, Potassium 4.0, Chloride 103, Carbon Dioxide 23, Anion Gap 11.0, BUN 11, Creatinine 0.8, Estimated GFR (MDRD) 90, Glucose 110 H, Calcium 9.0, Total Bilirubin 0.4, AST 14, ALT 11, Alkaline Phosphatase 70, C- Reactive Protein < 1.0, Total Protein 7.6, Albumin 3.7, Globulin 3.9, Albumin/Globulin Ratio 0.9 L, Lipase 24 11/08/20 09:05: ESR 59 H 11/08/20 09:05: WBC 16.1 H, RBC 3.69 L, Hgb 6.2 L*, Hct 23.5 L, MCV 63.7 L, MCH 16.8 L, MCHC 26.4 L, RDW 21.3 H, Plt Count 615 H, MPV 8.8, Neut # (Auto) Not Reportable, Lymph # (Auto) Not Reportable, Kay # (Auto) Not Reportable, Eos # (Auto) Not Reportable, Baso # (Auto) Not Reportable, Absolute Nucleated RBC Not Reportable, Total Counted 100, Band Neuts % (Manual) 3, Abnorm Lymph % (Manual) 0, Nucleated RBC % Not Reportable, Neutrophils # (Manual) 8.7 H, Lymphocytes # (Manual) 3.9 H, Monocytes # (Manual) 0.3, Eosinophils # (Manual) 3.2 H, Basophils # (Manual) 0.0, Differential Comment MANUAL DIFFERENTIAL, Manual Slide Review Indicated, WBC Morphology NORMAL APPEARANCE, Platelet Estimate INCREASED (>450,000), Platelet Morphology NORMAL MARIA, RBC Morph Micro Appear 3+ MICROCYTOSIS - Diagnostic Imaging Results Diagnostic Imaging Results: positive: Final report reviewed Diagnostic Imaging Results Comments: CT abdomen pelvis impression: 1. Thickening of the descending and sigmoid colon. Differential considerations include infection, inflammation, and ischemia. 2. Mildly prominent mesenteric and retroperitoneal lymph nodes, possibly indicated reactive lymph node enlargement. 3. Normal appendix. - Diagnosis Diagnosis: 1. Acute on chronic blood loss anemia. 2. Inflammatory bowel disease. 3. Severe ulcerative colitis. 4. Failure of outpatient medical management. 5. 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 She is now on her third having never been on biologic therapy. She reports having had a single vaginal delivery with associated tear. Colonic preservation would be the goal in her treatment. Surgery would be deferred as a salvage procedure if she were to fail medical management. Thus I would recommend high-dose steroids with appropriate taper to outpatient regimen. If she should fail this we would necessarily consider Remicade for refractory disease. Transfuse as necessary. Bowel rest. Plan upper and lower endoscopy on . Plan going forward is as follows: (1) GI - IVF, bowel rest, HOLD diet. Bowel prep in anticipation of colonoscopy. Opiate sparring analgesia. (2) SURGERY - would defer surgical intervention pending refractory disease failing both steroids and biologic therapy; if she indeed necessitated surgical intervention this would be total abdominal colectomy with end ileostomy and would defer completion proctectomy until after she was candidate for possible restorative ileoanal J-pouch. Her history of vaginal delivery and obstetrical laceration would complicate and potentially compromise long-term function which we will discuss at length. (3) Renal/Lytes - continue IVF. Renal indices within normal limits. (4) Respiratory - O2 as necessary. Continue IS. (5) Heme - transfuse as necessary, would also recommend iron infusions, and trend H&H. (6) Cardiovascular - HD acceptable. (7) Neuro - Opiate sparring analgesia. Antispasmodics with Robaxin. [Toradol]. Neuropathic agents. (8) Immune/Infectious Disease -would defer IV antibiotics at this time, over the risk of propagating C. difficile above and beyond fulminant colitis. However we will proceed with stool studies to rule out any occult infectious causes. Proceed with QuantiFERON gold. Proceed with hepatitis panel. Proceed with HIV. (9) Endo -insulin sliding scale as the patient will be on steroids. Also proceed with high-dose steroid taper to include 100 mg IV hydrocortisone 3 times daily first day. Can transition to 75 mg 3 times daily second day. Would proceed with 75 mg twice daily thereafter. If on the fourth day she continues to have persistent bloody stool on the fifth a we should consider salvage Remicade. Please note that voice recognition software was used to transcribe this note and inadvertent errors might persist in spite of review and editing. I am obliged to you for your attention. I am thankful to you for allowing me to participate with you in this care of this patient.
[2020-11-08] MEDS: HYDROCORTISONE SUCCINATE 100 MG/2 ML VIAL IVP SCH ×2 (16:00→21:50)
--- NOTE | 2020-11-08 17:09 | PHARMACY PROGRESS NOTE ---
- Best Possible Medication History Admit Date and Time: 11/08/20 1148 Processed by: Pharmacy Medication History completed: Yes Patient Interview: Pt interview ONLY source (Pt interviewed by Silas 11/08/20 - No home medications) As the person ultimately responsible for medication therapy, providers are able to order a medication from an existing home medication list in [facility] via the "Reconcile Routine" prior to Confirmation of that medication by end user support specialist. Such practice is discouraged except when the physician, in their clinical judgment, deems that a medical need exists for a medication without regard to previous use.
[2020-11-08] MEDS: SODIUM CHLORIDE FLUSH 0.9% 10 ML SYRINGE IVP SCH (17:28)
[2020-11-08] MEDS: DEXTROSE 5%-0.9% NACL 1,000 ML IV SCH (18:12)
[2020-11-09] MEDS: SODIUM CHLORIDE FLUSH 0.9% 10 ML SYRINGE IVP SCH ×3 (00:21→15:53)
[2020-11-09 04:22] LABS: BASOPHILS # (AUTO) 0.1 10^3/uL (0.0-0.1); BASOPHILS % (AUTO) 0.6 %; EOSINOPHILS % (AUTO) 0.1 %; HCT - HEMATOCRIT 29.5 % (37.0-47.0); HGB - HEMOGLOBIN 8.5 g/dL (12.0-16.0); LYMPHOCYTES # (AUTO) 1.7 10^3/uL (1.5-3.5); LYMPHOCYTES % (AUTO) 17.8 %; MEAN CORPUSCULAR HEMOGLOBIN 20.1 pg (27.0-31.0); MEAN CORPUSCULAR HGB CONC 28.8 g/dL (32.0-36.0); MEAN CORPUSCULAR VOLUME 69.9 fL (81.0-99.0); MEAN PLATELET VOLUME 8.5 fL (7.9-10.8); MONOCYTES # (AUTO) 0.5 10^3/uL (0.0-1.0); MONOCYTES % (AUTO) 5.2 %; NEUTROPHILS # (AUTO) 7.1 10^3/uL (1.5-6.6); NEUTROPHILS % (AUTO) 75.9 %; NRBC ABSOLUTE COUNT (AUTO) 0.02 x10^3/uL; NUCLEATED RED BLOOD CELLS AUTO 0.2 /100WBC; PLT - PLATELET COUNT 504 10^3/uL (130-450); RED BLOOD COUNT 4.22 10^6/uL (4.20-5.40); RED CELL DISTRIBUTION WIDTH 25.6 % (12.0-15.0); WHITE BLOOD COUNT 9.3 x10^3/uL (4.8-10.8)
[2020-11-09 04:26] LABS: SLIDE REVIEW? Indicated
[2020-11-09 04:30] LABS: CALCIUM 8.5 mg/dL (8.5-10.3); CREATININE 0.7 mg/dL (0.4-1.0); POTASSIUM 3.4 mmol/L (3.5-5.0)
[2020-11-09] MEDS: DEXTROSE 5%-0.9% NACL 1,000 ML IV SCH ×2 (04:31→15:52)
[2020-11-09 04:49] LABS: PLATELET ESTIMATE, MANUAL INCREASED (>450,000) (NORMAL)
[2020-11-09] MEDS: HYDROCORTISONE SUCCINATE 100 MG/2 ML VIAL IVP SCH ×3 (06:06→21:23)
[2020-11-09] MEDS: PANTOPRAZOLE 40 MG VIAL IVP SCH (06:06)
--- NOTE | 2020-11-09 08:18 | PROVIDER PROGRESS NOTE ---
Assessment/Plan - Problem List (1) Ulcerative colitis Qualifiers: Ulcerative colitis location: unspecified ulcerative colitis location Digestive disease complication type: unspecified complication Qualified Code(s): K51.919 - Ulcerative colitis, unspecified with unspecified complications Assessment/Plan: Continue IV hydration with D5 half-normal saline at 100 mL/h. On hydrocortisone 100 mg 3 times daily. General surgery following. Hepatitis panel, QuantiFERON gold, stool cultures, stool leukocytes, stool ova and parasites, C. difficile, Giardia and calprotectin pending (2) Lower GI bleed Assessment/Plan: Due to Ulcerative Colitis Patient transfused 2 units of PRBC Hemoglobin improved from 6.2 up to 8.5. Patient receiving IV hydration at 100 mils per hour. Colonoscopy plan for 1 to 2 days from today. (3) Anemia Qualifiers: Anemia type: unspecified type Qualified Code(s): D64.9 - Anemia, unspeci fied Assessment/Plan: Due to Ulcerative Colitis Patient transfused 2 units of PRBC Hemoglobin improved from 6.2 to 8.5. Patient receiving IV hydration at 100 mils per hour. General Surgery following Colonoscopy planned for 1 to 2 days from today. - Current Meds Current Meds: Current Medications Generic Name Dose Route Start Last Admin Trade Name Freq PRN Reason Stop Dose Admin Hydrocortisone Sodium Succinate 100 mg 11/08/20 15:00 11/09/20 06:06 Hydrocortisone Succinate 100 Mg/2 Ml Vial IVP 100 mg TID LUCY Administration Dextrose/Sodium Chloride 1,000 mls @ 100 mls/hr 11/08/20 12:00 11/09/20 07:21 D5ns IV 100 mls/hr .Q10H LUCY Infusion Pantoprazole Sodium 40 mg 11/08/20 12:00 11/09/20 06:06 Pantoprazole 40 Mg Vial IVP 40 mg QDAC LUCY Administration Sodium Chloride 10 ml 11/08/20 11:48 11/08/20 13:08 Sodium Chloride Flush 0.9% 10 Ml Syringe IVP 30 ml PRN PRN Administration NEEDED PER PROVIDER ORDERS Sodium Chloride 10 ml 11/08/20 17:00 11/09/20 00:21 Sodium Chloride Flush 0.9% 10 Ml Syringe IVP Not Given 0100,0900,1700 LUCY - Lab Result Fish Bone Diagrams: 11/09/20 04:15 11/09/20 04:15 - Additional Planning My Orders: My Active Orders 11/08/20 11:48 Activity Orders [RC] Q2HR IO [RC] IOSHIFT Initiate Bowel Care Protocol [RC] .protocol Initiate Line Care Protocol [RC] QSHIFT Initiate Personal Care Protoco [RC] .protocol Vital Signs [RC] 0800,1600,0000 HYDROcod/ACETAM 5/325 [[place] 5/325] 1 tab PO Q4HR PRN HYDROmorphone 0.5MG SYRINGE [Dilaudid Inj Syringe] 0.5 mg IVP Q2H PRN Ondansetron Inj [Zofran Inj] 4 mg IVP Q6HR PRN Sodium Chloride Flush 0.9% [Normal Saline Flush 0.9%] 10 ml IVP PRN PRN Code Status [OTHERS] Routine Condition of Patient [OTHERS] Routine DVT Prophylaxis [OTHERS] Routine 11/08/20 11:51 NPO except Meds [DIET] 11/08/20 11:52 SCDs [RC] QSHIFT General Surgery Consult [CONS] Routine 11/08/20 12:00 Dextrose 5%-0.9% NaCl [D5ns] 1,000 ml IV 100 mls/hr Pantoprazole [Protonix] 40 mg IVP QDAC 11/08/20 14:30 Social Work Consult [CONS] Routine 11/08/20 14:36 CALPROTECTIN,STOOL [REFLAB] Routine GIARDIA AG, EIA, STOOL [REFLAB] Routine MISC TEST QUEST AMBIENT [REFLAB] Routine OVA AND PARASITE [REFLAB] Routine 11/08/20 15:00 Hydrocortisone Succinate [Solu-CORTEF] 100 mg IVP TID 11/08/20 17:00 Sodium Chloride Flush 0.9% [Normal Saline Flush 0.9%] 10 ml IVP 0100,0900,1700 Subjective - Subjective Patient Reports: Other (Patient resting comfortably in bed at time of exam. She denies any significant abdominal pain. She continues to have bloody loose stools overnight. However she reports that the frequency and amount has decreased. She also continues to have nausea but no vomiting. She denies dyspnea, chest pain,) Objective Vital Signs: Vital Signs - 24 hr 11/08/20 11/08/20 11/08/20 08:44 09:43 11:00 Temperature 36.7 C 37.4 C Heart Rate 110 H 80 80 Heart Rate [ Brachial] Respiratory 18 16 18 Rate Blood Pressure 120/72 114/78 106/64 Blood Pressure [Right Brachial artery] O2 Saturation 100 100 11/08/20 11/08/20 11/08/20 11:11 11:25 14:43 Temperature 37.3 C 37.3 C 36.6 C Heart Rate 73 72 84 Heart Rate [ Brachial] Respiratory 16 14 17 Rate Blood Pressure 103/72 111/54 L 113/71 Blood Pressure [Right Brachial artery] O2 Saturation 11/08/20 11/08/20 11/08/20 14:56 15:15 16:00 Temperature 36.6 C 36.9 C Heart Rate 84 79 Heart Rate [ 77 Brachial] Respiratory 17 18 Rate Blood Pressure 113/71 112/64 Blood Pressure 112/64 113/67 [Right Brachial artery] O2 Saturation 100 11/08/20 11/08/20 11/09/20 18:09 23:40 08:00 Temperature 37.2 C 37 C 36.6 C Heart Rate 72 Heart Rate [ 72 65 Brachial] Respiratory 16 19 16 Rate Blood Pressure 105/60 Blood Pressure 116/67 112/64 [Right Brachial artery] O2 Saturation 98 100 Oxygen O2 Source Room air I&O (Last 24 Hrs): Intake and Output Totals x24h 11/07/20 11/08/20 11/09/20 23:59 23:59 23:59 Intake Total 1730 1216.667 Output Total 200 Balance 1530 1216.667 General: Alert, Oriented x3, Mild distress, Moderate distress HEENT: PERRLA, EOMI Neck: Supple, No JVD Neuro: Alert, Non Focal, Oriented Times 3 Cardiovascular: Regular rate, Normal S1, Normal S2 Respiratory: Chest non-tender, No respiratory distress, Breath sounds nml Abdomen: Soft, Other (mild tenderness to palpation) Extremities: No clubbing, No cyanosis, No edema Skin: No rashes, No breakdown - Results Results: Laboratory Results WBC 9.3 x10^3/uL (4.8-10.8) 11/09/20 04:15 RBC 4.22 10^6/uL (4.20-5.40) 11/09/20 04:15 Hgb 8.5 g/dL (12.0-16.0) L 11/09/20 04:15 Hct 29.5 % (37.0-47.0) L 11/09/20 04:15 MCV 69.9 fL (81.0-99.0) L 11/09/20 04:15 MCH 20.1 pg (27.0-31.0) L 11/09/20 04:15 MCHC 28.8 g/dL (32.0-36.0) L 11/09/20 04:15 RDW 25.6 % (12.0-15.0) H 11/09/20 04:15 Plt Count 504 10^3/uL (130-450) H 11/09/20 04:15 MPV 8.5 fL (7.9-10.8) 11/09/20 04:15 Neut # (Auto) 7.1 10^3/uL (1.5-6.6) H 11/09/20 04:15 Lymph # (Auto) 1.7 10^3/uL (1.5-3.5) 11/09/20 04:15 [place] # (Auto) 0.5 10^3/uL (0.0-1.0) 11/09/20 04:15 Eos # (Auto) 0.0 10^3/uL (0.0-0.7) 11/09/20 04:15 Baso # (Auto) 0.1 10^3/uL (0.0-0.1) 11/09/20 04:15 Absolute Nucleated RBC 0.02 x10^3/uL 11/09/20 04:15 Total Counted 100 11/08/20 09:05 Band Neuts % (Manual) 3 % (0-10) 11/08/20 09:05 Abnorm Lymph % (Manual) 0 % 11/08/20 09:05 Nucleated RBC % 0.2 /100WBC 11/09/20 04:15 Neutrophils # (Manual) 8.7 10^3/uL (1.5-6.6) H 11/08/20 09:05 Lymphocytes # (Manual) 3.9 10^3/uL (1.5-3.5) H 11/08/20 09:05 Monocytes # (Manual) 0.3 10^3/uL (0.0-1.0) 11/08/20 09:05 Eosinophils # (Manual) 3.2 10^3/uL (0-0.7) H 11/08/20 09:05 Basophils # (Manual) 0.0 10^3/uL (0-0.1) 11/08/20 09:05 Differential Comment MANUAL DIFFERENTIAL 11/08/20 09:05 Manual Slide Review Indicated 11/09/20 04:15 WBC Morphology NORMAL APPEARANCE (NORMAL) 11/08/20 09:05 Platelet Estimate INCREASED (>450,000) (NORMAL) 11/09/20 04:15 Platelet Morphology NORMAL MARIA (NORMAL) 11/08/20 09:05 RBC Morph Micro Appear 2+ ANISOCYTOSIS (NORMAL) 2+ MICROCYTOSIS (NORMAL) 3+ HYPOCHROMASIA (NORMAL) 1+ OVALOCYTES (NORMAL) 1+ POLYCHROMASIA (NORMAL) 11/09/20 04:15 RBC Morph Micro Appear 2+ ANISOCYTOSIS (NORMAL) 2+ MICROCYTOSIS (NORMAL) 3+ HYPOCHROMASIA (NORMAL) 1+ OVALOCYTES (NORMAL) 1+ POLYCHROMASIA (NORMAL) 11/09/20 04:15 RBC Morph Micro Appear 2+ ANISOCYTOSIS (NORMAL) 2+ MICROCYTOSIS (NORMAL) 3+ HYPOCHROMASIA (NORMAL) 1+ OVALOCYTES (NORMAL) 1+ POLYCHROMASIA (NORMAL) 11/09/20 04:15 RBC Morph Micro Appear 2+ ANISOCYTOSIS (NORMAL) 2+ MICROCYTOSIS (NORMAL) 3+ HYPOCHROMASIA (NORMAL) 1+ OVALOCYTES (NORMAL) 1+ POLYCHROMASIA (NORMAL) 11/09/20 04:15 RBC Morph Micro Appear 2+ ANISOCYTOSIS (NORMAL) 2+ MICROCYTOSIS (NORMAL) 3+ HYPOCHROMASIA (NORMAL) 1+ OVALOCYTES (NORMAL) 1+ POLYCHROMASIA (NORMAL) 11/09/20 04:15 ESR 59 mm/Hr (0-20) H 11/08/20 09:05 PT 13.8 secs (9.9-12.6) H 11/08/20 09:34 INR 1.2 (0.8-1.2) 11/08/20 09:34 Sodium 137 mmol/L (135-145) 11/09/20 04:15 Potassium 3.4 mmol/L (3.5-5.0) L 11/09/20 04:15 Chloride 107 mmol/L (101-111) 11/09/20 04:15 Carbon Dioxide 21 mmol/L (21-32) 11/09/20 04:15 Anion Gap 9.0 (6-13) 11/09/20 04:15 BUN 6 mg/dL (6-20) 11/09/20 04:15 Creatinine 0.7 mg/dL (0.4-1.0) 11/09/20 04:15 Estimated GFR (MDRD) 105 (>89) 11/09/20 04:15 Glucose 138 mg/dL (70-100) H 11/09/20 04:15 Calcium 8.5 mg/dL (8.5-10.3) 11/09/20 04:15 Total Bilirubin 0.4 mg/dL (0.2-1.0) 11/08/20 09:05 AST 14 IU/L (10-42) 11/08/20 09:05 ALT 11 IU/L (10-60) 11/08/20 09:05 Alkaline Phosphatase 70 IU/L (42-121) 11/08/20 09:05 C-Reactive Protein < 1.0 mg/dL (0-1.0) 11/08/20 09:05 Total Protein 7.6 g/dL (6.7-8.2) 11/08/20 09:05 Albumin 3.7 g/dL (3.2-5.5) 11/08/20 09:05 Globulin 3.9 g/dL (2.1-4.2) 11/08/20 09:05 Albumin/Globulin Ratio 0.9 (1.0-2.2) L 11/08/20 09:05 Lipase 24 U/L (22-51) 11/08/20 09:05 Serum HCG, Qual NEGATIVE 11/08/20 09:05 Nasal Adenovirus (PCR) NOT DETECTED 11/08/20 11:36 Nasal B. parapertussis DNA (PCR) NOT DETECTED 11/08/20 11:36 Nasal Coronavir 229E PCR NOT DETECTED 11/08/20 11:36 Nasal Coronavir HKU1 PCR NOT DETECTED 11/08/20 11:36 Nasal Coronavir NL63 PCR NOT DETECTED 11/08/20 11:36 Nasal Coronavir OC43 PCR NOT DETECTED 11/08/20 11:36 Nasal Enterovir/Rhinovir PCR NOT DETECTED 11/08/20 11:36 Nasal Influenza B PCR NOT DETECTED 11/08/20 11:36 Nasal Influenza A PCR NOT DETECTED 11/08/20 11:36 Nasal Parainfluen 1 PCR NOT DETECTED 11/08/20 11:36 Nasal Parainfluen 2 PCR NOT DETECTED 11/08/20 11:36 Nasal Parainfluen 3 PCR NOT DETECTED 11/08/20 11:36 Nasal Parainfluen 4 PCR NOT DETECTED 11/08/20 11:36 Nasal RSV (PCR) NOT DETECTED 11/08/20 11:36 Nasal B.pertussis DNA PCR NOT DETECTED 11/08/20 11:36 Nasal C.pneumoniae (PCR) NOT DETECTED 11/08/20 11:36 [place] Human Metapneumo PCR NOT DETECTED 11/08/20 11:36 Nasal M.pneumoniae (PCR) NOT DETECTED 11/08/20 11:36 Nasal SARS-CoV-2 (PCR) NOT DETECTED 11/08/20 11:36 Stool Leukocytes, Qual POSITIVE (Negative) 11/08/20 14:36 Stl C. diff Tox B Gene NEGATIVE (NEGATIVE) 11/08/20 14:36 Blood Type B POSITIVE 11/08/20 09:34 Antibody Screen NEGATIVE 11/08/20 09:34 Crossmatch IS Only See Detail 11/08/20 09:34 - Procedures Procedures: Procedures (12/20/18) ABX Reporting Has patient been on IV antibiotics over the past 48 hours?: No
[2020-11-09] MEDS ORDERED: POTASSIUM CHLORIDE 20 MEQ TABLET PO ONE (09:19)
[2020-11-09 12:26] LABS: HEPATITIS A IGM NON-REACTIVE (NON-REACTIVE); HEPATITIS B CORE ANTIBODY IGM NON-REACTIVE (NON-REACTIVE); HEPATITIS B SURFACE ANTIGEN NON-REACTIVE (NON-REACTIVE); HEPATITIS C ANTIBODY NON-REACTIVE (NON-REACTIVE)
[2020-11-09] MEDS: CHOLECALCIFEROL 5,000 UNIT CAPSULE PO SCH (15:49)
[2020-11-09] MEDS: SACCHAROMYCES BOULARDII 250 MG CAPSULE PO SCH (17:09)
[2020-11-10] MEDS: SODIUM CHLORIDE FLUSH 0.9% 10 ML SYRINGE IVP SCH ×3 (00:22→16:54)
[2020-11-10] MEDS: DEXTROSE 5%-0.9% NACL 1,000 ML IV SCH ×3 (01:43→23:06)
[2020-11-10] MEDS: PANTOPRAZOLE 40 MG VIAL IVP SCH (06:18)
[2020-11-10] MEDS: SODIUM CHLORIDE FLUSH 0.9% 10 ML SYRINGE IVP PRN (06:18)
[2020-11-10] MEDS: HYDROCORTISONE SUCCINATE 100 MG/2 ML VIAL IVP SCH (06:18)
[2020-11-10 07:46] LABS: NIL 0.06 IU/mL; TB1-NIL <0.00 IU/mL; TB2-NIL <0.00 IU/mL
[2020-11-10 07:46] LABS: BASOPHILS % (AUTO) 0.3 %; EOSINOPHILS % (AUTO) 0.4 %; HCT - HEMATOCRIT 27.2 % (37.0-47.0); HGB - HEMOGLOBIN 7.9 g/dL (12.0-16.0); LYMPHOCYTES # (AUTO) 1.8 10^3/uL (1.5-3.5); LYMPHOCYTES % (AUTO) 16.6 %; MEAN CORPUSCULAR HEMOGLOBIN 20.2 pg (27.0-31.0); MEAN CORPUSCULAR VOLUME 69.6 fL (81.0-99.0); MEAN PLATELET VOLUME 8.6 fL (7.9-10.8); NEUTROPHILS # (AUTO) 8.1 10^3/uL (1.5-6.6); NEUTROPHILS % (AUTO) 73.2 %; PLT - PLATELET COUNT 476 10^3/uL (130-450); RED BLOOD COUNT 3.91 10^6/uL (4.20-5.40); RED CELL DISTRIBUTION WIDTH 26.5 % (12.0-15.0)
[2020-11-10 07:57] LABS: CALCIUM 8.5 mg/dL (8.5-10.3); CREATININE 0.6 mg/dL (0.4-1.0); POTASSIUM 3.6 mmol/L (3.5-5.0)
[2020-11-10] MEDS: OMEGA-3 ACID ETHYL ESTERS 1 GM CAPSULE PO SCH (08:09)
[2020-11-10] MEDS: SACCHAROMYCES BOULARDII 250 MG CAPSULE PO SCH ×2 (08:09→16:54)
[2020-11-10] MEDS: CHOLECALCIFEROL 5,000 UNIT CAPSULE PO SCH (08:09)
[2020-11-10 08:18] LABS: PLATELET ESTIMATE, MANUAL INCREASED (>450,000) (NORMAL); PLATELET MORPHOLOGY 1+ GIANT PLATELETS (NORMAL)
[2020-11-10 08:19] LABS: WBC MORPHOLOGY (MULTIPLE) NORMAL APPEARANCE (NORMAL)
--- NOTE | 2020-11-10 11:23 | PROVIDER PROGRESS NOTE ---
Assessment/Plan - Problem List (1) Ulcerative colitis Qualifiers: Ulcerative colitis location: unspecified ulcerative colitis location Digestive disease complication type: unspecified complication Qualified Code(s): K51.919 - Ulcerative colitis, unspecified with unspecified complications Assessment/Plan: Continue IV hydration with D5 normal saline at 100 mL/h. Hydrocortisone dose decreased to 75 mg 3 times daily. Will then switch to 75 mg twice daily tomorrow. There is a possibility of starting the patient on Remicade if she continues to have bloody stools after day 5. Bowel prep today in anticipation for colonoscopy tomorrow. (2) Lower GI bleed Assessment/Plan: Due to ulcerative colitis. Patient continues to have bloody stools. However the frequency and amount is steadily decreasing. Patient's hemoglobin today was 7.9. Due to persistence of blood in stool we will transfuse the patient another unit of blood. (3) Anemia Qualifiers: Anemia type: unspecified type Qualified Code(s): D64.9 - Anemia, unspecified Assessment/Plan: Due to ulcerative colitis. Hemoglobin today was 7.9. Will transfuse 1 unit of packed red blood cells. Anticipated colonoscopy tomorrow. - Current Meds Current Meds: Current Medications Generic Name Dose Route Start Last Admin Trade Name Freq PRN Reason Stop Dose Admin Cholecalciferol 5,000 unit 11/09/20 16:00 11/10/20 08:09 Cholecalciferol 5,000 Unit Capsule PO 5,000 unit DAILY LUCY Administration Dextrose/Sodium Chloride 1,000 mls @ 100 mls/hr 11/08/20 12:00 11/10/20 01:43 D5ns IV 100 mls/hr .Q10H LUCY Administration Xnxxj-3-Fang Ethyl Esters 1 gm 11/10/20 09:00 11/10/20 08:09 [place]-3 Acid Ethyl Esters 1 Gm Capsule PO 1 gm DAILY LUCY Administration Pantoprazole Sodium 40 mg 11/08/20 12:00 11/10/20 06:18 Pantoprazole 40 Mg Vial IVP 40 mg QDAC LUCY Administration Saccharomyces Boulardii 250 mg 11/09/20 17:00 11/10/20 08:09 Saccharomyces Boulardii 250 Mg Capsule PO 250 mg BIDWM LUCY Administration Sodium Chloride 10 ml 11/08/20 11:48 11/10/20 06:18 Sodium Chloride Flush 0.9% 10 Ml Syringe IVP 10 ml PRN PRN Administration NEEDED PER PROVIDER ORDERS Sodium Chloride 10 ml 11/08/20 17:00 11/10/20 11:01 Sodium Chloride Flush 0.9% 10 Ml Syringe IVP 10 ml 0100,0900,1700 LUCY Administration - Lab Result Fish Bone Diagrams: 11/10/20 07:39 11/10/20 07:39 - Additional Planning My Orders: My Active Orders 11/09/20 16:00 Cholecalciferol [Vitamin D3] 5,000 unit PO DAILY 11/09/20 17:00 Saccharomyces Boulardii [Florastor] 250 mg PO BIDWM 11/10/20 09:00 [place]-3 Acid Ethyl Esters [Lovaza] 1 gm PO DAILY 11/10/20 14:00 Hydrocortisone Succinate [Solu-CORTEF] 50 mg IVP TID 11/11/20 05:00 BMP - BASIC METABOLIC PANEL [CHEM] DAILYLAB CBC - COMP BLD CT W/AUTO DIFF [HEME] DAILYLAB 11/12/20 05:00 BMP - BASIC METABOLIC PANEL [CHEM] DAILYLAB CBC - COMP BLD CT W/AUTO DIFF [HEME] DAILYLAB 11/13/20 05:00 BMP - BASIC METABOLIC PANEL [CHEM] DAILYLAB CBC - COMP BLD CT W/AUTO DIFF [HEME] DAILYLAB 11/14/20 05:00 BMP - BASIC METABOLIC PANEL [CHEM] DAILYLAB CBC - COMP BLD CT W/AUTO DIFF [HEME] DAILYLAB 11/15/20 05:00 BMP - BASIC METABOLIC PANEL [CHEM] DAILYLAB CBC - COMP BLD CT W/AUTO DIFF [HEME] DAILYLAB Subjective - Subjective Patient Reports: Other (Sitting comfortably in bed. The frequency and amount of bowel movements continues to decrease. She denied any other complaints.) Objective Vital Signs: Vital Signs - 24 hr 11/09/20 11/10/20 11/10/20 15:41 00:00 08:00 Temperature 36.4 C L 36.8 C 36.7 C Heart Rate [ 85 74 45 L Brachial] Respiratory 20 18 16 Rate Blood Pressure 104/69 108/65 107/66 [Right Brachial artery] O2 Saturation 100 100 99 Oxygen O2 Source Room air I&O (Last 24 Hrs): Intake and Output Totals x24h 11/08/20 11/09/20 11/10/20 23:59 23:59 23:59 Intake Total 1730 2515.000 475 Output Total 200 100 Balance 1530 2415.000 475 General: Alert, Oriented x3, No acute distress HEENT: PERRLA, EOMI Neck: Supple, No JVD Neuro: Alert, Non Focal, Oriented Times 3 Cardiovascular: Regular rate, Normal S1, Normal S2 Respiratory: Chest non-tender, No respiratory distress, Breath sounds nml Abdomen: Normal bowel sounds, Soft, No tenderness Rectal: Bloody Stool (improving) Extremities: No clubbing, No cyanosis, No edema - Results Results: Laboratory Results WBC 11.0 x10^3/uL (4.8-10.8) H 11/10/20 07:39 RBC 3.91 10^6/uL (4.20-5.40) L 11/10/20 07:39 Hgb 7.9 g/dL (12.0-16.0) L 11/10/20 07:39 Hct 27.2 % (37.0-47.0) L 11/10/20 07:39 MCV 69.6 fL (81.0-99.0) L 11/10/20 07:39 MCH 20.2 pg (27.0-31.0) L 11/10/20 07:39 MCHC 29.0 g/dL (32.0-36.0) L 11/10/20 07:39 RDW 26.5 % (12.0-15.0) H 11/10/20 07:39 Plt Count 476 10^3/uL (130-450) H 11/10/20 07:39 MPV 8.6 fL (7.9-10.8) 11/10/20 07:39 Neut # (Auto) 8.1 10^3/uL (1.5-6.6) H 11/10/20 07:39 Lymph # (Auto) 1.8 10^3/uL (1.5-3.5) 11/10/20 07:39 [place] # (Auto) 1.0 10^3/uL (0.0-1.0) 11/10/20 07:39 Eos # (Auto) 0.0 10^3/uL (0.0-0.7) 11/10/20 07:39 Baso # (Auto) 0.0 10^3/uL (0.0-0.1) 11/10/20 07:39 Absolute Nucleated RBC 0.00 x10^3/uL 11/10/20 07:39 Total Counted 100 03 09:05 Band Neuts % (Manual) 3 % (0-10) 11/08/20 09:05 Abnorm Lymph % (Manual) 0 % 11/08/20 09:05 Nucleated RBC % 0.0 /100WBC 11/10/20 07:39 Neutrophils # (Manual) 8.7 10^3/uL (1.5-6.6) H 11/08/20 09:05 Lymphocytes # (Manual) 3.9 10^3/uL (1.5-3.5) H 11/08/20 09:05 Monocytes # (Manual) 0.3 10^3/uL (0.0-1.0) 11/08/20 09:05 Eosinophils # (Manual) 3.2 10^3/uL (0-0.7) H 11/08/20 09:05 Basophils # (Manual) 0.0 10^3/uL (0-0.1) 11/08/20 09:05 Differential Comment MANUAL DIFFERENTIAL 11/08/20 09:05 Manual Slide Review Indicated 11/09/20 04:15 WBC Morphology NORMAL APPEARANCE (NORMAL) 11/10/20 07:39 Platelet Estimate INCREASED (>450,000) (NORMAL) 11/10/20 07:39 Platelet Morphology 1+ GIANT PLATELETS (NORMAL) 11/10/20 07:39 RBC Morph Micro Appear 3+ ANISOCYTOSIS (NORMAL) 2+ MICROCYTOSIS (NORMAL) 2+ HYPOCHROMASIA (NORMAL) 1+ POLYCHROMASIA (NORMAL) 1+ SCHISTOCYTES (NORMAL) 11/10/20 07:39 RBC Morph Micro Appear 3+ ANISOCYTOSIS (NORMAL) 2+ MICROCYTOSIS (NORMAL) 2+ HYPOCHROMASIA (NORMAL) 1+ POLYCHROMASIA (NORMAL) 1+ SCHISTOCYTES (NORMAL) 11/10/20 07:39 RBC Morph Micro Appear 3+ ANISOCYTOSIS (NORMAL) 2+ MICROCYTOSIS (NORMAL) 2+ HYPOCHROMASIA (NORMAL) 1+ POLYCHROMASIA (NORMAL) 1+ SCHISTOCYTES (NORMAL) 11/10/20 07:39 RBC Morph Micro Appear 3+ ANISOCYTOSIS (NORMAL) 2+ MICROCYTOSIS (NORMAL) 2+ HYPOCHROMASIA (NORMAL) 1+ POLYCHROMASIA (NORMAL) 1+ SCHISTOCYTES (NORMAL) 11/10/20 07:39 RBC Morph Micro Appear 3+ ANISOCYTOSIS (NORMAL) 2+ MICROCYTOSIS (NORMAL) 2+ HYPOCHROMASIA (NORMAL) 1+ POLYCHROMASIA (NORMAL) 1+ SCHISTOCYTES (NORMAL) 11/10/20 07:39 ESR 59 mm/Hr (0-20) H 11/08/20 09:05 PT 13.8 secs (9.9-12.6) H 11/08/20 09:34 INR 1.2 (0.8-1.2) 11/08/20 09:34 Sodium 140 mmol/L (135-145) 11/10/20 07:39 Potassium 3.6 mmol/L (3.5-5.0) 11/10/20 07:39 Chloride 109 mmol/L (101-111) 11/10/20 07:39 Carbon Dioxide 21 mmol/L (21-32) 11/10/20 07:39 Anion Gap 10.0 (6-13) 11/10/20 07:39 BUN 9 mg/dL (6-20) 11/10/20 07:39 Creatinine 0.6 mg/dL (0.4-1.0) 11/10/20 07:39 Estimated GFR (MDRD) 125 (>89) 11/10/20 07:39 Glucose 142 mg/dL (70-100) H 11/10/20 07:39 Calcium 8.5 mg/dL (8.5-10.3) 11/10/20 07:39 Total Bilirubin 0.4 mg/dL (0.2-1.0) 11/08/20 09:05 AST 14 IU/L (10-42) 11/08/20 09:05 ALT 11 IU/L (10-60) 11/08/20 09:05 Alkaline Phosphatase 70 IU/L (42-121) 11/08/20 09:05 C-Reactive Protein < 1.0 mg/dL (0-1.0) 11/08/20 09:05 Total Protein 7.6 g/dL (6.7-8.2) 11/08/20 09:05 Albumin 3.7 g/dL (3.2-5.5) 11/08/20 09:05 Globulin 3.9 g/dL (2.1-4.2) 11/08/20 09:05 Albumin/Globulin Ratio 0.9 (1.0-2.2) L 11/08/20 09:05 Lipase 24 U/L (22-51) 11/08/20 09:05 Serum HCG, Qual NEGATIVE 11/08/20 09:05 Nasal Adenovirus (PCR) NOT DETECTED 11/08/20 11:36 Nasal B. parapertussis DNA (PCR) NOT DETECTED 11/08/20 11:36 Nasal Coronavir 229E PCR NOT DETECTED 11/08/20 11:36 Nasal Coronavir HKU1 PCR NOT DETECTED 11/08/20 11:36 Nasal Coronavir NL63 PCR NOT DETECTED 11/08/20 11:36 Nasal Coronavir OC43 PCR NOT DETECTED 11/08/20 11:36 Nasal Enterovir/Rhinovir PCR NOT DETECTED 11/08/20 11:36 Nasal Influenza B PCR NOT DETECTED 11/08/20 11:36 Nasal Influenza A PCR NOT DETECTED 11/08/20 11:36 Nasal Parainfluen 1 PCR NOT DETECTED 11/08/20 11:36 Nasal Parainfluen 2 PCR NOT DETECTED 11/08/20 11:36 Nasal Parainfluen 3 PCR NOT DETECTED 11/08/20 11:36 Nasal Parainfluen 4 PCR NOT DETECTED 11/08/20 11:36 Nasal RSV (PCR) NOT DETECTED 11/08/20 11:36 Nasal B.pertussis DNA PCR NOT DETECTED 11/08/20 11:36 Nasal C.pneumoniae (PCR) NOT DETECTED 11/08/20 11:36 [place] Human Metapneumo PCR NOT DETECTED 11/08/20 11:36 Nasal M.pneumoniae (PCR) NOT DETECTED 11/08/20 11:36 Nasal SARS-CoV-2 (PCR) NOT DETECTED 11/08/20 11:36 Stool Leukocytes, Qual POSITIVE (Negative) 11/08/20 14:36 Stl C. diff Tox B Gene NEGATIVE (NEGATIVE) 11/08/20 14:36 Stl Giardia Antigen SEE NOTE 11/08/20 14:36 Hepatitis A IgM Ab NON-REACTIVE (NON-REACTIVE) 11/08/20 09:05 Hep Bs Antigen NON-REACTIVE (NON-REACTIVE) 11/08/20 09:05 Hep B Core IgM Ab NON-REACTIVE (NON-REACTIVE) 11/08/20 09:05 Hepatitis C Antibody NON-REACTIVE (NON-REACTIVE) 11/08/20 09:05 Hep C Ab Signal/Cutoff 0.00 (<1.00) 11/08/20 09:05 TB Test (QFT) Nil 0.06 IU/mL 11/08/20 10:41 TB Test Mitogen - Nil >10.00 IU/mL 11/08/20 10:41 TB Test Ag - Nil 1 <0.00 IU/mL 11/08/20 10:41 TB Test Ag - Nil 2 <0.00 IU/mL 11/08/20 10:41 TB Test (QFT) NEGATIVE (NEGATIVE) 11/08/20 10:41 Blood Type B POSITIVE 11/08/20 09:34 Antibody Screen NEGATIVE 11/08/20 09:34 Crossmatch IS Only See Detail 11/08/20 09:34 - Procedures Procedures: Procedures (12/20/18) ABX Reporting Has patient been on IV antibiotics over the past 48 hours?: No
--- NOTE | 2020-11-10 13:31 | ANESTHESIA ---
Pre-Anesthesia VS, & Labs - Diagnosis Diagnosis 1. Acute on chronic blood loss anemia 2. Inflammatory bowel disease 3. Severe ulcerative colitis 4. Failure of outpatient medical management 5. Immunocompromised state - Procedure Colonoscopy Vital Signs: Temp Pulse Resp BP Pulse Ox 36.5 C 50 L 17 100/64 99 11/10/20 13:10 11/10/20 13:10 11/10/20 13:10 11/10/20 13:10 11/10/20 08:00 Height: 5 ft 5 in Weight (kg): 54 kg Body Mass Index: 19.8 BMI Classification: Healthy weight - NPO >8 hours - Is Patient ?: No - Lab Results Current Lab Results: Laboratory Tests 11/10/20 07:39: Sodium 140, Potassium 3.6, Chloride 109, Carbon Dioxide 21, Anion Gap 10.0, BUN 9, Creatinine 0.6, Estimated GFR (MDRD) 125, Glucose 142 H, Calcium 8.5 11/10/20 07:39: WBC 11.0 H, RBC 3.91 L, Hgb 7.9 L, Hct 27.2 L, MCV 69.6 L, MCH 20.2 L, MCHC 29.0 L, RDW 26.5 H, Plt Count 476 H, MPV 8.6, Neut # (Auto) 8.1 H, Lymph # (Auto) 1.8, [place] # (Auto) 1.0, Eos # (Auto) 0.0, Baso # (Auto) 0.0, Absolute Nucleated RBC 0.00, Nucleated RBC % 0.0, WBC Morphology NORMAL APPEARANCE, Platelet Estimate INCREASED (>450,000), Platelet Morphology 1+ GIANT PLATELETS, RBC Morph Micro Appear 1+ SCHISTOCYTES 11/09/20 04:15: Sodium 137, Potassium 3.4 L, Chloride 107, Carbon Dioxide 21, Anion Gap 9.0, BUN 6, Creatinine 0.7, Estimated GFR (MDRD) 105, Glucose 138 H, Calcium 8.5 11/09/20 04:15: WBC 9.3, RBC 4.22, Hgb 8.5 L, Hct 29.5 L, MCV 69.9 L, MCH 20.1 L , MCHC 28.8 L, RDW 25.6 H, Plt Count 504 H, MPV 8.5, Neut # (Auto) 7.1 H, Lymph # (Auto) 1.7, [place] # (Auto) 0.5, Eos # (Auto) 0.0, Baso # (Auto) 0.1, Absolute Nucleated RBC 0.02, Nucleated RBC % 0.2, Manual Slide Review Indicated, Platelet Estimate INCREASED (>450,000), RBC Morph Micro Appear 1+ POLYCHROMASIA 11/08/20 09:34: Blood Type B POSITIVE, Antibody Screen NEGATIVE, Crossmatch IS Only See Detail 11/08/20 09:34: PT 13.8 H, INR 1.2 11/08/20 09:05: Serum HCG, Qual NEGATIVE 11/08/20 09:05: Sodium 137, Potassium 4.0, Chloride 103, Carbon Dioxide 23, Anion Gap 11.0, BUN 11, Creatinine 0.8, Estimated GFR (MDRD) 90, Glucose 110 H, Calcium 9.0, Total Bilirubin 0.4, AST 14, ALT 11, Alkaline Phosphatase 70, C- Reactive Protein < 1.0, Total Protein 7.6, Albumin 3.7, Globulin 3.9, Albumin/Globulin Ratio 0.9 L, Lipase 24 11/08/20 09:05: ESR 59 H 11/08/20 09:05: WBC 16.1 H, RBC 3.69 L, Hgb 6.2 L*, Hct 23.5 L, MCV 63.7 L, MCH 16.8 L, MCHC 26.4 L, RDW 21.3 H, Plt Count 615 H, MPV 8.8, Neut # (Auto) Not Reportable, Lymph # (Auto) Not Reportable, [place] # (Auto) Not Reportable, Eos # (Auto) Not Reportable, Baso # (Auto) Not Reportable, Absolute Nucleated RBC Not Reportable, Total Counted 100, Band Neuts % (Manual) 3, Abnorm Lymph % (Manual) 0, Nucleated RBC % Not Reportable, Neutrophils # (Manual) 8.7 H, Lymphocytes # (Manual) 3.9 H, Monocytes # (Manual) 0.3, Eosinophils # (Manual) 3.2 H, Basophils # (Manual) 0.0, Differential Comment MANUAL DIFFERENTIAL, Manual Slide Review Indicated, WBC Morphology NORMAL APPEARANCE, Platelet Estimate INCREASED (>450,000), Platelet Morphology NORMAL MARIA, RBC Morph Micro Appear 3+ MICROCYTOSIS Lab results reviewed: Yes Fish Bones: 11/10/20 07:39 11/10/20 07:39 Home Medications and Allergies Home Medications: Ambulatory Orders No Known Home Medications 11/08/20 Active Medications Hydrocodone Bitart/Acetaminophen (Hydrocod/Acetam 5/325 Mg Tablet) 1 tab PO Q4HR PRN PRN Reason: Pain 5 to 7 Cholecalciferol (Cholecalciferol 5,000 Unit Capsule) 5,000 unit PO DAILY [facility] Last Admin: 11/10/20 08:09 Dose: 5,000 unit Documented by: Hydrocortisone Sodium Succinate (Hydrocortisone Succinate 100 Mg/2 Ml Vial) 75 mg IVP TID [facility] Hydromorphone HCl (Hydromorphone 0.5 Mg/0.5 Ml Syringe) 0.5 mg IVP Q2H PRN PRN Reason: Pain 8 to 10 Dextrose/Sodium Chloride (D5ns) 1,000 mls @ 100 mls/hr IV .Q10H [facility] Last Admin: 11/10/20 12:47 Dose: 100 mls/hr Documented by: [id number]-Uhkn Ethyl Esters ([place]-3 Acid Ethyl Esters 1 Gm Capsule) 1 gm PO DAILY [facility] Last Admin: 11/10/20 08:09 Dose: 1 gm Documented by: Ondansetron HCl (Ondansetron 4 Mg/2 Ml Vial) 4 mg IVP Q6HR PRN PRN Reason: Nausea / Vomiting Pantoprazole Sodium (Pantoprazole 40 Mg Vial) 40 mg IVP QDAC [facility] Last Admin: 11/10/20 06:18 Dose: 40 mg Documented by: Saccharomyces Boulardii (Saccharomyces Boulardii 250 Mg Capsule) 250 mg PO BIDWM [facility] Last Admin: 11/10/20 08:09 Dose: 250 mg Documented by: Sodium Chloride (Sodium Chloride Flush 0.9% 10 Ml Syringe) 10 ml IVP PRN PRN PRN Reason: NEEDED PER PROVIDER ORDERS Last Admin: 11/10/20 06:18 Dose: 10 ml Documented by: Sodium Chloride (Sodium Chloride Flush 0.9% 10 Ml Syringe) 10 ml IVP 0100,0900,1700 [facility] Last Admin: 11/10/20 11:01 Dose: 10 ml Documented by: No Known Home Medications 11/08/20 Allergies/Adverse Reactions: Allergies Allergy/AdvReac Type Severity Reaction Status Date / Time ibuprofen AdvReac Unknown Verified 11/08/20 08:43 Anes History & Medical History - Anesthetic History Anesthesia Complications: reports: No previous complications Family history of Anesthesia Complications: Denies Family history of Malignant Hyperthermia: Denies - Medical History Cardiovascular: reports: None Pulmonary: reports: Asthma (well controlled) Gastrointestinal: reports: Ulcerative colitis (dx @11years of age) Urinary: reports: None Neuro: reports: None Musculoskeletal: reports: None Endocrine/Autoimmune: reports: None Blood Disorders: reports: Anemia Skin: reports: None Smoking Status: Never smoker Psychosocial: reports: Cannabis (rare) History of Cancer?: No - Surgical History General: reports: Colonoscopy Eyes Ears Nose Throat (EENT): reports: Tonsil/Adenoidectomy Exam General: Alert, Oriented x3, Cooperative Dental: WNL (tooth jewels glued to canine teeth) Mouth Openin Fingerbreadth Neck Mobility: Normal Mallampati classification: II Thyromental Distance: 4-6 cm Respiratory: Lungs clear, Normal breath sounds, No respiratory distress Cardiovascular: Regular rate Neurological: Normal speech Mental/Cognitive Status: Alert/Oriented X3, Normal for patient Cognitive Status: Within normal limits Plan Anesthesia Type: Total IV Consent for Procedure(s) Verified and Reviewed: Yes Code Status: Attempt Resuscitation ASA classification: 2-Mild systemic disease Is this case an emergency?: Yes
[2020-11-10] MEDS ORDERED: HYDROCORTISONE SUCCINATE 100 MG/2 ML VIAL IVP SCH ×3 (14:00→20:00)
[2020-11-10] MEDS ORDERED: PROPOFOL 500 MG/50 ML 500 MG/50 ML VIAL ONE (14:17)
[2020-11-10] MEDS ORDERED: LIDOCAINE-MPF 2% 5 ML VIAL ONE (14:17)
[2020-11-10] MEDS ORDERED: MIDAZOLAM 2 MG/2 ML VIAL ONE (14:26)
[2020-11-10] MEDS ORDERED: GLYCOPYRROLATE 1 MG/5 ML VIAL ONE (14:35)
[2020-11-10] MEDS ORDERED: LACTATED RINGERS 1,000 ML IV ONE (14:48)
[2020-11-10] MEDS ORDERED: HYDROmorphone 0.5 MG/0.5 ML SYRINGE IVP PRN (14:56)
[2020-11-10] MEDS ORDERED: fentaNYL 100 MCG/2 ML VIAL IVP PRN (14:56)
[2020-11-10] MEDS ORDERED: ATROPINE ABBOJECT 1 MG/10 ML SYRINGE IVP PRN (14:56)
[2020-11-10] MEDS ORDERED: MORPHINE 2 MG/ML CARPUJECT IVP PRN (14:56)
[2020-11-10] MEDS ORDERED: NALOXONE 0.4 MG/ML VIAL IVP PRN (14:56)
[2020-11-10] MEDS ORDERED: METOCLOPRAMIDE 10 MG/2 ML VIAL IVP PRN (14:56)
[2020-11-10] MEDS ORDERED: ePHEDrine 50 MG/ML VIAL IVP PRN (14:56)
[2020-11-10] MEDS ORDERED: ONDANSETRON 4 MG/2 ML VIAL IVP PRN (14:56)
--- NOTE | 2020-11-10 14:57 | ANESTHESIA POST OP EVALUATION ---
Anesthesia Post Eval - Post Anesthesia Eval Vitals: Last Vital Signs Temp 36.7 C 11/10/20 14:45 Pulse 74 11/10/20 14:55 Resp 19 11/10/20 14:55 BP 135/91 H 11/10/20 14:55 Pulse Ox 100 11/10/20 14:55 CV Function Including HR & BP: positive: Stable Pain Control: positive: Satisfactory Nausea & Vomiting: positive: Negative Mental Status: positive: Patient Participates Respiratory Status: Airway Patent Hydration Status: Satisfactory Anesthesia Complications: positive: None
--- NOTE | 2020-11-10 14:59 | PROVIDER PROGRESS NOTE ---
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 Multiply transfused during hospitalization. Maintained on high- dose steroids. Clinically improved with less abdominal discomfort. Status post diagnostic colonoscopy today: 1. Pancolonic colitis consistent with severe to moderate colitis. 2. Ileocecal valve intubated; terminal ileum without enteritis. 3. No stricturing. Multiple biopsies cold forcep taken, first from the terminal ileum which was grossly normal. 4. Left colonic biopsies taken, cold forceps, friable tissue with associated diffuse pancolonic erythematous colitis. 5. Transverse colon similar, multiply biopsied cold forceps. 6. Left colon similar as above, multiply biopsied cold forceps. 7. Sigmoid colon and rectum notable for proctocolitis, similar in appearance, biopsied separately cold forceps. 9. No symptomatic internal hemorrhoids, anal sparing. Exam consistent with pancolonic proctocolitis consistent with the patient's known history of ulcerative colitis. Plan going forward is as follows: (1) GI - IVF, bowel rest, HOLD diet. Overall improved from a gastrointestinal standpoint. Recommend PPI. (2) SURGERY - would defer surgical intervention pending refractory disease failing both steroids and biologic therapy; if she indeed necessitated surgical intervention this would be total abdominal colectomy with end ileostomy and would defer completion proctectomy until after she was candidate for possible restorative ileoanal J-pouch. Her history of vaginal delivery and obstetrical laceration would complicate and potentially compromise long-term function which we will discuss at length. (3) Renal/Lytes - continue IVF. Renal indices within normal limits. (4) Respiratory - O2 as necessary. Continue IS. (5) Heme - continue to transfuse as necessary, would also recommend iron infusions, and trend H&H. (6) Cardiovascular - HD acceptable. (7) Neuro - Opiate sparring analgesia. Antispasmodics with Robaxin. Neuropathic agents. (8) Immune/Infectious Disease -would defer IV antibiotics at this time, over the risk of propagating C. difficile above and beyond fulminant colitis; patient has had positive toxin historically and is likely a chronic colonizer. Stool studies thus far negative. Fecal leukocytes positive and as expected. QuantiFERON gold & hepatitis panels Both negative. Would be candidate for biologic for both induction and maintenance therapy as outpatient. (9) Endo - insulin sliding scale as the patient will be on steroids. High-dose steroid taper to include 100 mg IV hydrocortisone 3 times. Can transition to 75 mg 3 times tomorrow. Would proceed with 75 mg twice daily thereafter. She appears to be responding overall to steroid therapy and would likely be appropriate for candidacy to be transition to oral prednisone at 20 mg p.o. twice daily and referral for outpatient urgent gastrointestinal consultation. Please note that voice recognition software was used to transcribe this note and inadvertent errors might persist in spite of review and editing. I am obliged to you for your attention. I am thankful to you for allowing me to participate with you in this care of this patient.
[2020-11-10] MEDS ORDERED: LACTATED RINGERS 1,000 ML IV SCH (15:00)
[2020-11-11] MEDS: SODIUM CHLORIDE FLUSH 0.9% 10 ML SYRINGE IVP SCH ×4 (00:06→23:57)
[2020-11-11 05:09] LABS: BASOPHILS % (AUTO) 0.1 %; EOSINOPHILS # (AUTO) 0.2 10^3/uL (0.0-0.7); EOSINOPHILS % (AUTO) 2.3 %; HCT - HEMATOCRIT 28.5 % (37.0-47.0); HGB - HEMOGLOBIN 8.3 g/dL (12.0-16.0); LYMPHOCYTES % (AUTO) 25.8 %; MEAN CORPUSCULAR HEMOGLOBIN 20.9 pg (27.0-31.0); MEAN CORPUSCULAR HGB CONC 29.1 g/dL (32.0-36.0); MEAN CORPUSCULAR VOLUME 71.6 fL (81.0-99.0); MEAN PLATELET VOLUME 9.1 fL (7.9-10.8); MONOCYTES # (AUTO) 0.9 10^3/uL (0.0-1.0); MONOCYTES % (AUTO) 11.9 %; NEUTROPHILS # (AUTO) 4.6 10^3/uL (1.5-6.6); NEUTROPHILS % (AUTO) 59.5 %; PLT - PLATELET COUNT 447 10^3/uL (130-450); RED BLOOD COUNT 3.98 10^6/uL (4.20-5.40); RED CELL DISTRIBUTION WIDTH 26.5 % (12.0-15.0); WHITE BLOOD COUNT 7.7 x10^3/uL (4.8-10.8)
[2020-11-11 05:17] LABS: CALCIUM 8.3 mg/dL (8.5-10.3); CREATININE 0.6 mg/dL (0.4-1.0); POTASSIUM 3.2 mmol/L (3.5-5.0)
[2020-11-11 05:19] LABS: SLIDE REVIEW? Indicated
[2020-11-11 05:26] LABS: % IRON SATURATION 2 % (20-50); IRON 7 ug/dL (28-170); TOTAL IRON BINDING CAPACITY 370 ug/dL (250-450); TRANSFERRIN 264 mg/dL (192-382)
[2020-11-11 05:34] LABS: PLATELET ESTIMATE, MANUAL NORMAL (130-450,000) (NORMAL)
[2020-11-11] MEDS ORDERED: HYDROCORTISONE SUCCINATE 100 MG/2 ML VIAL IVP SCH (06:00)
[2020-11-11] MEDS: PANTOPRAZOLE 40 MG VIAL IVP SCH (06:20)
[2020-11-11] MEDS ORDERED: POTASSIUM CHLORIDE 20 MEQ TABLET PO ONE (07:25)
--- NOTE | 2020-11-11 07:34 | PROVIDER PROGRESS NOTE ---
Assessment/Plan - Problem List (1) Ulcerative colitis Qualifiers: Ulcerative colitis location: unspecified ulcerative colitis location Digestive disease complication type: unspecified complication Qualified Code(s): K51.919 - Ulcerative colitis, unspecified with unspecified complications Assessment/Plan: Patient underwent a colonoscopy yesterday. Plan colonic colitis consistent with moderate colitis was noted. Patient will be on hydrocortisone 75 mg 3 times daily IV today. The dose will be changed to 75 mg twice daily IV tomorrow. If patient continues to do well will consider discharge home in 2 days on prednisone 20 mg p.o. daily. Patient would need to follow-up with gastroenterology within a week. We will try patient on a clear liquid diet today. Fecal leukocytes were positive. QuantiFERON gold and hepatitis panel were negative. (2) Lower GI bleed Assessment/Plan: Due to moderate ulcerative colitis. The frequency of bloody stools have improved. Over the past 20 hours the patient reports just 1 bowel movement. Patient was transfused 1 unit of packed red blood cell yesterday with a hemoglobin of 8.3 today. (3) Anemia Qualifiers: Anemia type: unspecified type Qualified Code(s): D64.9 - Anemia, unspecified Assessment/Plan: Patient was transfused 1 unit of packed red blood cells yesterday for a total of 3 units of packed red blood cells so far on this admission. Her hemoglobin today is 8.3. Patient was started on ferrous sulfate 325 mg p.o. twice daily with meals today. - Current Meds Current Meds: Current Medications Generic Name Dose Route Start Last Admin Trade Name Alejandroq PRN Reason Stop Dose Admin Cholecalciferol 5,000 unit 11/09/20 16:00 11/10/20 08:09 Cholecalciferol 5,000 Unit Capsule PO 5,000 unit DAILY LUCY Administration Dextrose/Sodium Chloride 1,000 mls @ 100 mls/hr 11/08/20 12:00 11/10/20 23:06 D5ns IV 100 mls/hr .Q10H LUCY Administration [id number] Ethyl Esters 1 gm 11/10/20 09:00 11/10/20 08:09 [place]-3 Acid Ethyl Esters 1 Gm Capsule PO 1 gm DAILY LUCY Administration Pantoprazole Sodium 40 mg 11/08/20 12:00 11/11/20 06:20 Pantoprazole 40 Mg Vial IVP 40 mg QDAC LUCY Administration Saccharomyces Boulardii 250 mg 11/09/20 17:00 11/10/20 16:54 Saccharomyces Boulardii 250 Mg Capsule PO 250 mg BIDWM LUCY Administration Sodium Chloride 10 ml 11/08/20 11:48 11/10/20 06:18 Sodium Chloride Flush 0.9% 10 Ml Syringe IVP 10 ml PRN PRN Administration NEEDED PER PROVIDER ORDERS Sodium Chloride 10 ml 11/08/20 17:00 11/11/20 00:06 Sodium Chloride Flush 0.9% 10 Ml Syringe IVP Not Given 0100,0900,1700 LUCY - Lab Result Fish Bone Diagrams: 11/11/20 04:33 11/11/20 04:33 - Additional Planning My Orders: My Active Orders 11/10/20 09:00 [place]-3 Acid Ethyl Esters [Lovaza] 1 gm PO DAILY 11/11/20 07:26 MAGNESIUM [CHEM] Stat 11/11/20 14:00 Hydrocortisone Succinate [Solu-CORTEF] 75 mg IVP TID 11/12/20 05:00 BMP - BASIC METABOLIC PANEL [CHEM] DAILYLAB CBC - COMP BLD CT W/AUTO DIFF [HEME] DAILYLAB 11/13/20 05:00 BMP - BASIC METABOLIC PANEL [CHEM] DAILYLAB CBC - COMP BLD CT W/AUTO DIFF [HEME] DAILYLAB 11/14/20 05:00 BMP - BASIC METABOLIC PANEL [CHEM] DAILYLAB CBC - COMP BLD CT W/AUTO DIFF [HEME] DAILYLAB 11/15/20 05:00 BMP - BASIC METABOLIC PANEL [CHEM] DAILYLAB CBC - COMP BLD CT W/AUTO DIFF [HEME] DAILYLAB Subjective - Subjective Patient Reports: Other (The frequency of patient's stool has significantly improved. Over the past 20 hours she has only experienced one bowel movement. However she reports feeling bloated. She denies any other complaints.) Objective Vital Signs: Vital Signs - 24 hr 11/10/20 11/10/20 11/10/20 08:00 13:10 13:35 Temperature 36.7 C 36.5 C 36.7 C Heart Rate 50 L 50 L Heart Rate [ 45 L Brachial] Respiratory 16 17 17 Rate Blood Pressure 100/64 112/68 Blood Pressure [Left Brachial artery] Blood Pressure 107/66 [Right Brachial artery] O2 Saturation 99 11/10/20 11/10/20 11/10/20 14:45 14:50 14:55 Temperature 36.7 C Heart Rate 74 74 74 Heart Rate [ Brachial] Respiratory 21 19 19 Rate Blood Pressure 132/86 H 130/86 H 135/91 H Blood Pressure [Left Brachial artery] Blood Pressure [Right Brachial artery] O2 Saturation 100 100 100 11/10/20 11/10/20 11/10/20 15:00 15:25 16:28 Temperature 36.4 C L 36.5 C Heart Rate 93 Heart Rate [ 55 L 61 Brachial] Respiratory 28 H 18 18 Rate Blood Pressure 143/100 H Blood Pressure 105/66 [Left Brachial artery] Blood Pressure 116/72 [Right Brachial artery] O2 Saturation 100 100 100 11/10/20 11/11/20 16:30 00:00 Temperature 36.7 C 36.8 C Heart Rate 61 Heart Rate [ 40 L Brachial] Respiratory 18 16 Rate Blood Pressure 116/72 Blood Pressure [Left Brachial artery] Blood Pressure 101/63 [Right Brachial artery] O2 Saturation 100 Oxygen O2 Source Room air I&O (Last 24 Hrs): Intake and Output Totals x24h 11/09/20 11/10/20 11/11/20 23:59 23:59 23:59 Intake Total 2515.000 2775.000 Output Total 100 Balance 2415.000 2775.000 General: Alert, Oriented x3, No acute distress HEENT: PERRLA, EOMI Neck: Supple, No JVD Neuro: Alert, Non Focal, Oriented Times 3 Cardiovascular: Regular rate, Normal S1, Normal S2 Respiratory: Chest non-tender, No respiratory distress, Breath sounds nml Abdomen: Normal bowel sounds, Other (Bloated) - Results Results: Laboratory Results WBC 7.7 x10^3/uL (4.8-10.8) 11/11/20 04:33 RBC 3.98 10^6/uL (4.20-5.40) L 11/11/20 04:33 Hgb 8.3 g/dL (12.0-16.0) L 11/11/20 04:33 Hct 28.5 % (37.0-47.0) L 11/11/20 04:33 MCV 71.6 fL (81.0-99.0) L 11/11/20 04:33 MCH 20.9 pg (27.0-31.0) L 11/11/20 04:33 MCHC 29.1 g/dL (32.0-36.0) L 11/11/20 04:33 RDW 26.5 % (12.0-15.0) H 11/11/20 04:33 Plt Count 447 10^3/uL (130-450) 11/11/20 04:33 MPV 9.1 fL (7.9-10.8) 11/11/20 04:33 Neut # (Auto) 4.6 10^3/uL (1.5-6.6) 11/11/20 04:33 Lymph # (Auto) 2.0 10^3/uL (1.5-3.5) 11/11/20 04:33 [place] # (Auto) 0.9 10^3/uL (0.0-1.0) 11/11/20 04:33 Eos # (Auto) 0.2 10^3/uL (0.0-0.7) 11/11/20 04:33 Baso # (Auto) 0.0 10^3/uL (0.0-0.1) 11/11/20 04:33 Absolute Nucleated RBC 0.00 x10^3/uL 11/11/20 04:33 Total Counted 100 11/08/20 09:05 Band Neuts % (Manual) 3 % (0-10) 11/08/20 09:05 Abnorm Lymph % (Manual) 0 % 11/08/20 09:05 Nucleated RBC % 0.0 /100WBC 11/11/20 04:33 Neutrophils # (Manual) 8.7 10^3/uL (1.5-6.6) H 11/08/20 09:05 Lymphocytes # (Manual) 3.9 10^3/uL (1.5-3.5) H 11/08/20 09:05 Monocytes # (Manual) 0.3 10^3/uL (0.0-1.0) 11/08/20 09:05 Eosinophils # (Manual) 3.2 10^3/uL (0-0.7) H 11/08/20 09:05 Basophils # (Manual) 0.0 10^3/uL (0-0.1) 11/08/20 09:05 Differential Comment MANUAL DIFFERENTIAL 11/08/20 09:05 Manual Slide Review Indicated 11/11/20 04:33 WBC Morphology NORMAL APPEARANCE (NORMAL) 11/10/20 07:39 Platelet Estimate NORMAL (130-450,000) (NORMAL) 11/11/20 04:33 Platelet Morphology 1+ GIANT PLATELETS (NORMAL) 11/10/20 07:39 RBC Morph Micro Appear 2+ ANISOCYTOSIS (NORMAL) 2+ MICROCYTOSIS (NORMAL) 2+ HYPOCHROMASIA (NORMAL) 1+ POLYCHROMASIA (NORMAL) 1+ OVALOCYTES (NORMAL) 11/11/20 04:33 RBC Morph Micro Appear 2+ ANISOCYTOSIS (NORMAL) 2+ MICROCYTOSIS (NORMAL) 2+ HYPOCHROMASIA (NORMAL) 1+ POLYCHROMASIA (NORMAL) 1+ OVALOCYTES (NORMAL) 11/11/20 04:33 RBC Morph Micro Appear 2+ ANISOCYTOSIS (NORMAL) 2+ MICROCYTOSIS (NORMAL) 2+ HYPOCHROMASIA (NORMAL) 1+ POLYCHROMASIA (NORMAL) 1+ OVALOCYTES (NORMAL) 11/11/20 04:33 RBC Morph Micro Appear 2+ ANISOCYTOSIS (NORMAL) 2+ MICROCYTOSIS (NORMAL) 2+ HYPOCHROMASIA (NORMAL) 1+ POLYCHROMASIA (NORMAL) 1+ OVALOCYTES (NORMAL) 11/11/20 04:33 RBC Morph Micro Appear 2+ ANISOCYTOSIS (NORMAL) 2+ MICROCYTOSIS (NORMAL) 2+ HYPOCHROMASIA (NORMAL) 1+ POLYCHROMASIA (NORMAL) 1+ OVALOCYTES (NORMAL) 11/11/20 04:33 ESR 59 mm/Hr (0-20) H 11/08/20 09:05 PT 13.8 secs (9.9-12.6) H 11/08/20 09:34 INR 1.2 (0.8-1.2) 11/08/20 09:34 Sodium 139 mmol/L (135-145) 11/11/20 04:33 Potassium 3.2 mmol/L (3.5-5.0) L 11/11/20 04:33 Chloride 111 mmol/L (101-111) 11/11/20 04:33 Carbon Dioxide 21 mmol/L (21-32) 11/11/20 04:33 Anion Gap 7.0 (6-13) 11/11/20 04:33 BUN 10 mg/dL (6-20) 11/11/20 04:33 Creatinine 0.6 mg/dL (0.4-1.0) 11/11/20 04:33 Estimated GFR (MDRD) 125 (>89) 11/11/20 04:33 Glucose 138 mg/dL (70-100) H 11/11/20 04:33 Calcium 8.3 mg/dL (8.5-10.3) L 11/11/20 04:33 Iron 7 ug/dL (28-170) L 11/10/20 04:33 TIBC 370 ug/dL (250-450) 11/10/20 04:33 % Saturation 2 % (20-50) L 11/10/20 04:33 Transferrin 264 mg/dL (192-382) 11/10/20 04:33 Total Bilirubin 0.4 mg/dL (0.2-1.0) 11/08/20 09:05 Ferritin 4.5 ng/mL (11.0-306.8) L 11/10/20 04:33 AST 14 IU/L (10-42) 11/08/20 09:05 ALT 11 IU/L (10-60) 11/08/20 09:05 Alkaline Phosphatase 70 IU/L (42-121) 11/08/20 09:05 C-Reactive Protein < 1.0 mg/dL (0-1.0) 11/08/20 09:05 Total Protein 7.6 g/dL (6.7-8.2) 11/08/20 09:05 Albumin 3.7 g/dL (3.2-5.5) 11/08/20 09:05 Globulin 3.9 g/dL (2.1-4.2) 11/08/20 09:05 Albumin/Globulin Ratio 0.9 (1.0-2.2) L 11/08/20 09:05 Lipase 24 U/L (22-51) 11/08/20 09:05 Serum HCG, Qual NEGATIVE 11/08/20 09:05 Nasal Adenovirus (PCR) NOT DETECTED 11/08/20 11:36 Nasal B. parapertussis DNA (PCR) NOT DETECTED 11/08/20 11:36 Nasal Coronavir 229E PCR NOT DETECTED 11/08/20 11:36 Nasal Coronavir HKU1 PCR NOT DETECTED 11/08/20 11:36 Nasal Coronavir NL63 PCR NOT DETECTED 11/08/20 11:36 Nasal Coronavir OC43 PCR NOT DETECTED 11/08/20 11:36 Nasal Enterovir/Rhinovir PCR NOT DETECTED 11/08/20 11:36 Nasal Influenza B PCR NOT DETECTED 11/08/20 11:36 Nasal Influenza A PCR NOT DETECTED 11/08/20 11:36 Nasal Parainfluen 1 PCR NOT DETECTED 11/08/20 11:36 Nasal Parainfluen 2 PCR NOT DETECTED 11/08/20 11:36 Nasal Parainfluen 3 PCR NOT DETECTED 11/08/20 11:36 Nasal Parainfluen 4 PCR NOT DETECTED 11/08/20 11:36 Nasal RSV (PCR) NOT DETECTED 11/08/20 11:36 Nasal B.pertussis DNA PCR NOT DETECTED 11/08/20 11:36 Nasal C.pneumoniae (PCR) NOT DETECTED 11/08/20 11:36 [place] Human Metapneumo PCR NOT DETECTED 11/08/20 11:36 Nasal M.pneumoniae (PCR) NOT DETECTED 11/08/20 11:36 Nasal SARS-CoV-2 (PCR) NOT DETECTED 11/08/20 11:36 Stool Leukocytes, Qual POSITIVE (Negative) 11/08/20 14:36 Stl C. diff Tox B Gene NEGATIVE (NEGATIVE) 11/08/20 14:36 Stl Giardia Antigen SEE NOTE 11/08/20 14:36 Hepatitis A IgM Ab NON-REACTIVE (NON-REACTIVE) 11/08/20 09:05 Hep Bs Antigen NON-REACTIVE (NON-REACTIVE) 11/08/20 09:05 Hep B Core IgM Ab NON-REACTIVE (NON-REACTIVE) 11/08/20 09:05 Hepatitis C Antibody NON-REACTIVE (NON-REACTIVE) 11/08/20 09:05 Hep C Ab Signal/Cutoff 0.00 (<1.00) 11/08/20 09:05 TB Test (QFT) Nil 0.06 IU/mL 11/08/20 10:41 TB Test Mitogen - Nil >10.00 IU/mL 11/08/20 10:41 TB Test Ag - Nil 1 <0.00 IU/mL 11/08/20 10:41 TB Test Ag - Nil 2 <0.00 IU/mL 11/08/20 10:41 TB Test (QFT) NEGATIVE (NEGATIVE) 11/08/20 10:41 Ova & Parasites SEE NOTE 11/08/20 14:36 Blood Type B POSITIVE 11/08/20 09:34 Antibody Screen NEGATIVE 11/08/20 09:34 Crossmatch IS Only See Detail 11/08/20 09:34 - Procedures Procedures: Procedures (12/20/18) ABX Reporting Has patient been on IV antibiotics over the past 48 hours?: No
[2020-11-11] MEDS: SACCHAROMYCES BOULARDII 250 MG CAPSULE PO SCH ×2 (08:16→16:31)
[2020-11-11] MEDS: CHOLECALCIFEROL 5,000 UNIT CAPSULE PO SCH (08:16)
[2020-11-11] MEDS: OMEGA-3 ACID ETHYL ESTERS 1 GM CAPSULE PO SCH (08:16)
[2020-11-11] MEDS: DEXTROSE 5%-0.9% NACL 1,000 ML IV SCH ×3 (08:17→21:10)
--- NOTE | 2020-11-11 09:25 | PROVIDER PROGRESS NOTE ---
Progress Note Subjective Tolerating full liquids. Improved abdominal discomfort. Significantly decreased frequency of bowel function. Comparatively less bright red blood per rectum. Multiply transfused earlier in admission however overall doing much better from a hemodynamic and hematologic standpoint. Objective Hemodynamically acceptable General Appearance: positive: No acute distress Eyes Bilateral: positive: Normal inspection ENT: positive: ENT inspection nml Neck: positive: Nml inspection Respiratory: positive: Chest non-tender, No respiratory distress, Breath sounds nml. negative: Wheezes, Rales, Rhonchi Cardiovascular: positive: Regular rate & rhythm Abdomen: positive: No distention, Other. 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 Multiply transfused during hospitalization. Maintained on high- dose steroids. Clinically improved with less abdominal discomfort. Status post diagnostic colonoscopy today: 1. Pancolonic colitis consistent with severe to moderate colitis. 2. Ileocecal valve intubated; terminal ileum without enteritis. 3. No stricturing. Multiple biopsies cold forcep taken, first from the terminal ileum which was grossly normal. 4. Left colonic biopsies taken, cold forceps, friable tissue with associated diffuse pancolonic erythematous colitis. 5. Transverse colon similar, multiply biopsied cold forceps. 6. Left colon similar as above, multiply biopsied cold forceps. 7. Sigmoid colon and rectum notable for proctocolitis, similar in appearance, biopsied separately cold forceps. 9. No symptomatic internal hemorrhoids, anal sparing. Exam consistent with pancolonic proctocolitis consistent with the patient's known history of ulcerative colitis. Patient overall doing much better with decreased frequency of bowel function to 2 movements over the last 24 hours, improved abdominal discomfort, no significant bleeding per rectum. Responding to steroid induction and will need to be maintained until follow-up with outpatient gastroenterology through [facility] specialist. Tolerating advance diet. (1) GI - IVF, Advance diet, outpatient follow-up with [facility] gastroenterology. Overall improved from a gastrointestinal standpoint. Recommend PPI. (2) SURGERY - Continue steroid induction therapy. Outpatient follow-up. No acute indication for surgical intervention at this time. (3) Renal/Lytes - continue IVF. Renal indices within normal limits. (4) Respiratory - O2 as necessary. Continue IS. (5) Heme - H&H stable. (6) Cardiovascular - HD acceptable. (7) Neuro - Opiate sparring analgesia. Antispasmodics with Robaxin. Neuropathic agents. (8) Immune/Infectious Disease - would defer IV antibiotics at this time, over the risk of propagating C. difficile above and beyond fulminant colitis; patient has had positive toxin historically and is likely a chronic colonizer. Stool studies thus far negative. Fecal leukocytes positive and as expected. QuantiFERON gold & hepatitis panels Both negative. Would be candidate for biologic for both induction and maintenance therapy as outpatient. (9) Endo - insulin sliding scale as the patient will be on steroids. High-dose steroid taper to include 100 mg IV hydrocortisone 3 times. Can transition to 75 mg 3 times tomorrow. Would proceed with 75 mg twice daily thereafter. She appears to be responding overall to steroid therapy and would likely be appropriate for candidacy to be transition to oral prednisone at 20 mg p.o. twice daily and referral for outpatient urgent gastrointestinal consultation. (10) Appropriate for discharge from a surgical standpoint at this time. Please note that voice recognition software was used to transcribe this note and inadvertent errors might persist in spite of review and editing. I am obliged to you for your attention. I am thankful to you for allowing me to participate with you in this care of this patient.
[2020-11-11] MEDS: HYDROCORTISONE SUCCINATE 100 MG/2 ML VIAL IVP SCH ×2 (13:48→21:09)
[2020-11-11] MEDS: FERROUS SULFATE 325 MG TABLET PO SCH (16:31)
[2020-11-12] MEDS: DEXTROSE 5%-0.9% NACL 1,000 ML IV SCH (06:35)
[2020-11-12] MEDS: HYDROCORTISONE SUCCINATE 100 MG/2 ML VIAL IVP SCH (06:36)
[2020-11-12] MEDS ORDERED: PANTOPRAZOLE 40 MG TABLET PO SCH (07:00)
--- NOTE | 2020-11-12 07:14 | PROVIDER PROGRESS NOTE ---
Assessment/Plan - Problem List (1) Ulcerative colitis Qualifiers: Ulcerative colitis location: unspecified ulcerative colitis location Digestive disease complication type: unspecified complication Qualified Code(s): K51.919 - Ulcerative colitis, unspecified with unspecified complications (3) Anemia Qualifiers: Anemia type: unspecified type Qualified Code(s): D64.9 - Anemia, unspecified - Current Meds Current Meds: Current Medications Generic Name Dose Route Start Last Admin Trade Name Freq PRN Reason Stop Dose Admin Hydrocodone Bitart/Acetaminophen 1 tab 11/08/20 11:48 11/11/20 23:57 Hydrocod/Acetam 5/325 Mg Tablet PO 1 tab Q4HR PRN Administration Pain 5 to 7 Cholecalciferol 5,000 unit 11/09/20 16:00 11/11/20 08:16 Cholecalciferol 5,000 Unit Capsule PO 5,000 unit DAILY LUCY Administration Ferrous Sulfate 325 mg 11/11/20 17:00 11/11/20 16:31 Ferrous Sulfate 325 Mg Tablet PO 325 mg BIDWM LUCY Administration Dextrose/Sodium Chloride 1,000 mls @ 100 mls/hr 11/08/20 12:00 11/12/20 06:52 D5ns IV 0 mls/hr .Q10H LUCY Infusion Fqhon-[id number] Ethyl Esters 1 gm 11/10/20 09:00 11/11/20 08:16 Flasher-3 Acid Ethyl Esters 1 Gm Capsule PO 1 gm DAILY LUCY Administration Pantoprazole Sodium 40 mg 11/12/20 07:00 11/12/20 06:36 Pantoprazole 40 Mg Tablet PO 40 mg QDAC LUCY Administration Saccharomyces Boulardii 250 mg 11/09/20 17:00 11/11/20 16:31 Saccharomyces Boulardii 250 Mg Capsule PO 250 mg BIDWM LUCY Administration Sodium Chloride 10 ml 11/08/20 11:48 11/10/20 06:18 Sodium Chloride Flush 0.9% 10 Ml Syringe IVP 10 ml PRN PRN Administration NEEDED PER PROVIDER ORDERS Sodium Chloride 10 ml 11/08/20 17:00 11/11/20 23:57 Sodium Chloride Flush 0.9% 10 Ml Syringe IVP Not Given 0100,0900,1700 LUCY - Lab Result Fish Bone Diagrams: 11/11/20 04:33 11/11/20 04:33 - Additional Planning My Orders: My Active Orders 11/11/20 Lunch Clear Liquid Diet [DIET] 11/11/20 17:00 Ferrous Sulfate [Feosol] 325 mg PO BIDWM 11/12/20 05:00 BMP - BASIC METABOLIC PANEL [CHEM] DAILYLAB CBC - COMP BLD CT W/AUTO DIFF [HEME] DAILYLAB 11/12/20 07:00 Pantoprazole [Protonix] 40 mg PO QDAC 11/12/20 Lunch Full Liquid Diet [DIET] 11/12/20 18:00 Hydrocortisone Succinate [Solu-CORTEF] 75 mg IVP BID 11/13/20 05:00 BMP - BASIC METABOLIC PANEL [CHEM] DAILYLAB CBC - COMP BLD CT W/AUTO DIFF [HEME] DAILYLAB 11/14/20 05:00 BMP - BASIC METABOLIC PANEL [CHEM] DAILYLAB CBC - COMP BLD CT W/AUTO DIFF [HEME] DAILYLAB 11/15/20 05:00 BMP - BASIC METABOLIC PANEL [CHEM] DAILYLAB CBC - COMP BLD CT W/AUTO DIFF [HEME] DAILYLAB Objective Vital Signs: Vital Signs - 24 hr 11/11/20 11/11/20 11/11/20 08:00 15:48 16:00 Temperature 36.5 C 36.9 C Heart Rate [ 40 L 41 L Brachial] Heart Rate [ 46 L Radial] Respiratory 18 16 Rate Blood Pressure 108/68 [Left Brachial artery] Blood Pressure 110/68 [Right Brachial artery] O2 Saturation 100 95 11/11/20 11/11/20 16:30 23:56 Temperature 36.7 C Heart Rate [ Brachial] Heart Rate [ 53 L 40 L Radial] Respiratory 16 Rate Blood Pressure [Left Brachial artery] Blood Pressure 124/81 H [Right Brachial artery] O2 Saturation 100 Oxygen O2 Source Room air I&O (Last 24 Hrs): Intake and Output Totals x24h 11/10/20 11/11/20 11/12/20 23:59 23:59 23:59 Intake Total 2775.000 2398.333 970.000 Output Total 0 Balance 2775.000 2398.333 970.000 - Results Results: Laboratory Results WBC 7.7 x10^3/uL (4.8-10.8) 11/11/20 04:33 RBC 3.98 10^6/uL (4.20-5.40) L 11/11/20 04:33 Hgb 8.3 g/dL (12.0-16.0) L 11/11/20 04:33 Hct 28.5 % (37.0-47.0) L 11/11/20 04:33 MCV 71.6 fL (81.0-99.0) L 11/11/20 04:33 MCH 20.9 pg (27.0-31.0) L 11/11/20 04:33 MCHC 29.1 g/dL (32.0-36.0) L 11/11/20 04:33 RDW 26.5 % (12.0-15.0) H 11/11/20 04:33 Plt Count 447 10^3/uL (130-450) 11/11/20 04:33 MPV 9.1 fL (7.9-10.8) 11/11/20 04:33 Neut # (Auto) 4.6 10^3/uL (1.5-6.6) 11/11/20 04:33 Lymph # (Auto) 2.0 10^3/uL (1.5-3.5) 11/11/20 04:33 Peach # (Auto) 0.9 10^3/uL (0.0-1.0) 11/11/20 04:33 Eos # (Auto) 0.2 10^3/uL (0.0-0.7) 11/11/20 04:33 Baso # (Auto) 0.0 10^3/uL (0.0-0.1) 11/11/20 04:33 Absolute Nucleated RBC 0.00 x10^3/uL 11/11/20 04:33 Total Counted 100 11/08/20 09:05 Band Neuts % (Manual) 3 % (0-10) 11/08/20 09:05 Abnorm Lymph % (Manual) 0 % 11/08/20 09:05 Nucleated RBC % 0.0 /100WBC 11/11/20 04:33 Neutrophils # (Manual) 8.7 10^3/uL (1.5-6.6) H 11/08/20 09:05 Lymphocytes # (Manual) 3.9 10^3/uL (1.5-3.5) H 11/08/20 09:05 Monocytes # (Manual) 0.3 10^3/uL (0.0-1.0) 11/08/20 09:05 Eosinophils # (Manual) 3.2 10^3/uL (0-0.7) H 11/08/20 09:05 Basophils # (Manual) 0.0 10^3/uL (0-0.1) 11/08/20 09:05 Differential Comment MANUAL DIFFERENTIAL 11/08/20 09:05 Manual Slide Review Indicated 11/11/20 04:33 WBC Morphology NORMAL APPEARANCE (NORMAL) 11/10/20 07:39 Platelet Estimate NORMAL (130-450,000) (NORMAL) 11/11/20 04:33 Platelet Morphology 1+ GIANT PLATELETS (NORMAL) 11/10/20 07:39 RBC Morph Micro Appear 2+ ANISOCYTOSIS (NORMAL) 2+ MICROCYTOSIS (NORMAL) 2+ HYPOCHROMASIA (NORMAL) 1+ POLYCHROMASIA (NORMAL) 1+ OVALOCYTES (NORMAL) 11/11/20 04:33 RBC Morph Micro Appear 2+ ANISOCYTOSIS (NORMAL) 2+ MICROCYTOSIS (NORMAL) 2+ HYPOCHROMASIA (NORMAL) 1+ POLYCHROMASIA (NORMAL) 1+ OVALOCYTES (NORMAL) 11/11/20 04:33 RBC Morph Micro Appear 2+ ANISOCYTOSIS (NORMAL) 2+ MICROCYTOSIS (NORMAL) 2+ HYPOCHROMASIA (NORMAL) 1+ POLYCHROMASIA (NORMAL) 1+ OVALOCYTES (NORMAL) 11/11/20 04:33 RBC Morph Micro Appear 2+ ANISOCYTOSIS (NORMAL) 2+ MICROCYTOSIS (NORMAL) 2+ HYPOCHROMASIA (NORMAL) 1+ POLYCHROMASIA (NORMAL) 1+ OVALOCYTES (NORMAL) 11/11/20 04:33 RBC Morph Micro Appear 2+ ANISOCYTOSIS (NORMAL) 2+ MICROCYTOSIS (NORMAL) 2+ HYPOCHROMASIA (NORMAL) 1+ POLYCHROMASIA (NORMAL) 1+ OVALOCYTES (NORMAL) 08/22 04:33 ESR 59 mm/Hr (0-20) H 11/08/20 09:05 PT 13.8 secs (9.9-12.6) H 11/08/20 09:34 INR 1.2 (0.8-1.2) 11/08/20 09:34 Sodium 139 mmol/L (135-145) 11/11/20 04:33 Potassium 3.2 mmol/L (3.5-5.0) L 11/11/20 04:33 Chloride 111 mmol/L (101-111) 11/11/20 04:33 Carbon Dioxide 21 mmol/L (21-32) 11/11/20 04:33 Anion Gap 7.0 (6-13) 11/11/20 04:33 BUN 10 mg/dL (6-20) 11/11/20 04:33 Creatinine 0.6 mg/dL (0.4-1.0) 11/11/20 04:33 Estimated GFR (MDRD) 125 (>89) 11/11/20 04:33 Glucose 138 mg/dL (70-100) H 11/11/20 04:33 Calcium 8.3 mg/dL (8.5-10.3) L 11/11/20 04:33 Magnesium 2.0 mg/dL (1.7-2.8) 11/11/20 04:33 Iron 7 ug/dL (28-170) L 11/10/20 04:33 TIBC 370 ug/dL (250-450) 11/10/20 04:33 % Saturation 2 % (20-50) L 11/10/20 04:33 Transferrin 264 mg/dL (192-382) 11/10/20 04:33 Total Bilirubin 0.4 mg/dL (0.2-1.0) 11/08/20 09:05 Ferritin 4.5 ng/mL (11.0-306.8) L 11/10/20 04:33 AST 14 IU/L (10-42) 11/08/20 09:05 ALT 11 IU/L (10-60) 11/08/20 09:05 Alkaline Phosphatase 70 IU/L (42-121) 11/08/20 09:05 C-Reactive Protein < 1.0 mg/dL (0-1.0) 11/08/20 09:05 Total Protein 7.6 g/dL (6.7-8.2) 11/08/20 09:05 Albumin 3.7 g/dL (3.2-5.5) 11/08/20 09:05 Globulin 3.9 g/dL (2.1-4.2) 11/08/20 09:05 Albumin/Globulin Ratio 0.9 (1.0-2.2) L 11/08/20 09:05 Lipase 24 U/L (22-51) 11/08/20 09:05 Serum HCG, Qual NEGATIVE 11/08/20 09:05 Nasal Adenovirus (PCR) NOT DETECTED 11/08/20 11:36 Nasal B. parapertussis DNA (PCR) NOT DETECTED 11/08/20 11:36 Nasal Coronavir 229E PCR NOT DETECTED 11/08/20 11:36 Nasal Coronavir HKU1 PCR NOT DETECTED 11/08/20 11:36 Nasal Coronavir NL63 PCR NOT DETECTED 11/08/20 11:36 Nasal Coronavir OC43 PCR NOT DETECTED 11/08/20 11:36 Nasal Enterovir/Rhinovir PCR NOT DETECTED 11/08/20 11:36 Nasal Influenza B PCR NOT DETECTED 11/08/20 11:36 Nasal Influenza A PCR NOT DETECTED 11/08/20 11:36 Nasal Parainfluen 1 PCR NOT DETECTED 11/08/20 11:36 Nasal Parainfluen 2 PCR NOT DETECTED 11/08/20 11:36 Nasal Parainfluen 3 PCR NOT DETECTED 11/08/20 11:36 Nasal Parainfluen 4 PCR NOT DETECTED 11/08/20 11:36 Nasal RSV (PCR) NOT DETECTED 11/08/20 11:36 Nasal B.pertussis DNA PCR NOT DETECTED 11/08/20 11:36 Nasal C.pneumoniae (PCR) NOT DETECTED 11/08/20 11:36 [place] Human Metapneumo PCR NOT DETECTED 11/08/20 11:36 Nasal M.pneumoniae (PCR) NOT DETECTED 11/08/20 11:36 Nasal SARS-CoV-2 (PCR) NOT DETECTED 11/08/20 11:36 Stool Leukocytes, Qual POSITIVE (Negative) 11/08/20 14:36 Stl C. diff Tox B Gene NEGATIVE (NEGATIVE) 11/08/20 14:36 Stl Giardia Antigen SEE NOTE 11/08/20 14:36 Hepatitis A IgM Ab NON-REACTIVE (NON-REACTIVE) 11/08/20 09:05 Hep Bs Antigen NON-REACTIVE (NON-REACTIVE) 11/08/20 09:05 Hep B Core IgM Ab NON-REACTIVE (NON-REACTIVE) 11/08/20 09:05 Hepatitis C Antibody NON-REACTIVE (NON-REACTIVE) 11/08/20 09:05 Hep C Ab Signal/Cutoff 0.00 (<1.00) 11/08/20 09:05 TB Test (QFT) Nil 0.06 IU/mL 11/08/20 10:41 TB Test Mitogen - Nil >10.00 IU/mL 11/08/20 10:41 TB Test Ag - Nil 1 <0.00 IU/mL 11/08/20 10:41 TB Test Ag - Nil 2 <0.00 IU/mL 11/08/20 10:41 TB Test (QFT) NEGATIVE (NEGATIVE) 11/08/20 10:41 Ova & Parasites SEE NOTE 11/08/20 14:36 Blood Type B POSITIVE 11/08/20 09:34 Antibody Screen NEGATIVE 11/08/20 09:34 Crossmatch IS Only See Detail 11/08/20 09:34 - Procedures Procedures: Procedures (12/20/18) ABX Reporting Has patient been on IV antibiotics over the past 48 hours?: No
[2020-11-12] MEDS: SACCHAROMYCES BOULARDII 250 MG CAPSULE PO SCH (08:16)
[2020-11-12] MEDS: SODIUM CHLORIDE FLUSH 0.9% 10 ML SYRINGE IVP SCH (08:17)
[2020-11-12] MEDS: FERROUS SULFATE 325 MG TABLET PO SCH (08:17)
[2020-11-12] MEDS: OMEGA-3 ACID ETHYL ESTERS 1 GM CAPSULE PO SCH (08:17)
[2020-11-12] MEDS: CHOLECALCIFEROL 5,000 UNIT CAPSULE PO SCH (08:17)
[2020-11-12 08:55] LABS: BASOPHILS % (AUTO) 0.2 %; EOSINOPHILS % (AUTO) 0.4 %; HGB - HEMOGLOBIN 9.4 g/dL (12.0-16.0); LYMPHOCYTES # (AUTO) 1.8 10^3/uL (1.5-3.5); LYMPHOCYTES % (AUTO) 21.3 %; MEAN CORPUSCULAR HEMOGLOBIN 20.8 pg (27.0-31.0); MEAN CORPUSCULAR HGB CONC 28.5 g/dL (32.0-36.0); MEAN CORPUSCULAR VOLUME 72.8 fL (81.0-99.0); MONOCYTES # (AUTO) 0.5 10^3/uL (0.0-1.0); MONOCYTES % (AUTO) 5.4 %; NEUTROPHILS # (AUTO) 6.1 10^3/uL (1.5-6.6); NEUTROPHILS % (AUTO) 71.8 %; PLT - PLATELET COUNT 461 10^3/uL (130-450); RED BLOOD COUNT 4.53 10^6/uL (4.20-5.40); RED CELL DISTRIBUTION WIDTH 26.9 % (12.0-15.0); WHITE BLOOD COUNT 8.5 x10^3/uL (4.8-10.8)
[2020-11-12 09:07] LABS: CALCIUM 8.9 mg/dL (8.5-10.3); CREATININE 0.7 mg/dL (0.4-1.0); SLIDE REVIEW? Indicated
[2020-11-12 09:24] LABS: PLATELET ESTIMATE, MANUAL INCREASED (>450,000) (NORMAL); PLATELET MORPHOLOGY NORMAL APPEARANCE (NORMAL)
[2020-11-12] MEDS ORDERED: POTASSIUM CHLORIDE 20 MEQ TABLET PO ONE (09:29)
[2020-11-12] MEDS: POTASSIUM CHLOR 10 MEQ/100 ML 10 MEQ/100 ML BAG IV SCH ×4 (10:02→14:09)
--- NOTE | 2020-11-12 13:27 | DISCHARGE SUMMARY ---
Discharge Summary Admit Date: 11/08/20 Discharge Date: 11/12/20 Discharging Provider: Yvonne Travis Primary Care Provider: Melissa Rowland Code Status: Attempt Resuscitation Condition at Discharge: Stable Discharge Disposition: 01 Home, Self Care - DIAGNOSES Admission Diagnoses: Ulcerative colitis: Lower GI bleed Anemia Discharge Diagnoses with Status of Each Condition: Ulcerative colitis: Improved Lower GI bleed: Improved/ Resolved Anemia: Stable. S/p Transfusion of 3 units PRBC. Iron level 7 - HPI History of Present Illness: Patient is a 20-year-old female with history significant for ulcerative colitis who presented to the ED ED at the behest of her mom with complaints of frequent bloody stools. She describes experiencing about 10-20 episodes of stools with blood in them daily. Her symptoms have been going on intermittently for a couple of months. They are usually worse after eating. Consequently she has not been eating. She was diagnosed with Ulcerative Colitis at the age of 11. She has been on mesalamine, sulfasalazine and Remicade in the past. The most recent of this medications Remicade she stopped because she was constantly feeling nauseous. She has also seen a yarn polishing machine operator by name Dr Raquel Avelar in [place]. She was last seen 2 years ago. That also happens to be the time when she last had a colonoscopy. She denies chest pain, dyspnea or fever. She reports nausea, sharp stabbing intermittent abdominal pain and chills. In the ED she was found to have a hemoglobin of 6.2 and a WBC of 16. She was also noted to have Bright red blood per rectum. CT of the abdomen pelvis showed thickening of the descending and sigmoid colon. Differential considerations included infectious, inflammation and ischemia. Mildly prominent mesenteric and retroperitoneal lymph nodes, possible indicating reactive lymph node enlargement. Normal appendix. As a result she was presented for admission for further work-up and treatment. Dr. Scotty Hairston with general surgery was contacted by the ED physician and was in agreement to see the patient in consult. Maintained on high-dose hydrocortisone throughout her hospital stay. She was discharged home on prednisone 20 mg p.o. twice daily for 7 days Initially she was n.p.o. but then diet was advanced to clear and then full liquid on the last 2 days of her hospital stay. She was transfused a total of 3 units of packed red blood cells during this hospital stay. At discharge her hemoglobin was 9.4 She underwent a colonoscopy on 11/10/20. Pancolonic colitis consistent with moderate colitis was noted. At admission she had a white blood cell count of 16. This was thought to be reactive. By discharge the patient's white blood cell count was 8.5. She did not receive any antibiotics during her hospital stay. By the time of discharge her bowel movements had significantly decreased to about 1-2 bowel movements in a day with little or no blood in them. During her hospital stay her potassium was as low as 3.0. She received IV and oral supplemental potassium replacement as needed. Iron studies showed iron level of 7, TIBC 370, percentage saturation to and transferring 264. As a result the patient was started on ferrous sulfate 325 mg p.o. twice daily. She was discharged home on iron supplements. She is to follow-up with gastroenterology at [place] by name Nati Edgar on 11/24/2020. She is to follow-up with Ashley Rowland in the [facility]'s on 11/22/2020 to establish care with a primary care physician - ALLERGIES Allergies/Adverse Reactions: Allergies Allergy/AdvReac Type Severity Reaction Status Date / Time ibuprofen AdvReac Unknown Verified 11/08/20 08:43 - MEDICATIONS Home Medications: Ambulatory Orders Medication Instructions Recorded Confirmed Ferrous Sulfate [Feosol] 325 mg PO BIDWM 30 Days #60 tablet 11/12/20 predniSONE [Deltasone] 20 mg PO BID 7 Days #14 tablet 11/12/20 - PHYSICAL EXAM AT DISCHARGE General Appearance: positive: No acute distress, Alert Eyes Bilateral: positive: PERRL, EOMI ENT: positive: No signs of dehydration Neck: positive: Nml inspection, No JVD Respiratory: positive: Chest non-tender, No respiratory distress, Breath sounds nml. negative: Wheezes, Rales, Rhonchi Cardiovascular: positive: No murmur, Bradycardia Abdomen: positive: Non-tender, No organomegaly, Nml bowel sounds, No distention. negative: Guarding, Rebound Back: positive: Nml inspection Skin: positive: Color nml, No rash, Warm, Dry Extremities: positive: Non-tender, Full ROM, Nml appearance, No pedal edema Neurologic/Psychiatric: positive: Oriented x3, Mood/affect nml - LABS Result Diagrams: 11/12/20 08:39 11/12/20 08:39 - TIME SPENT Time Spent in Discharge (Minutes): 25
--- NOTE | 2020-11-12 13:30 | Discharge Plan ---
Discharge Plan Problem Reviewed?: Yes Disposition: Home, Self Care Condition: Stable Prescriptions: predniSONE [Deltasone] 20 mg PO BID 7 Days #14 tablet Ferrous Sulfate [Feosol] 325 mg PO BIDWM 30 Days #60 tablet Diet: Soft Activity Restrictions: Activity as Tolerated Health Concerns: You were admitted for increased frequency of bloody diarrhea. On the day of admission you were also found to be anemic with a hemoglobin of 6.2. The diarrhea was thought to be due to flareup of ulcerative colitis which was deemed to be severe. You were transfused a total of 3 units of packed red blood cells. UA initially maintained on no oral intake over several days. You underwent a bowel prep and had a colonoscopy done with biopsies. You were also maintained on high-dose steroids with hydrocortisone during your hospital stay. You are being discharged on prednisone 20 mg p.o. twice daily for 7 days. You have an appointment to follow-up with gastroenterology Ceci Edgar in [place] on 11/24/2020. He also have an appointment to follow-up with Ashley Rowland to ask primary care in [facility]. This appointment is on 11/22/2020. You will also be sent home with prescription for iron sulfate 325 mg p.o. twice daily due to anemia. The above has been explained to you and you expressed understanding. Plan of Treatment: You were admitted for increased frequency of bloody diarrhea. On the day of admission you were also found to be anemic with a hemoglobin of 6.2. The diarrhea was thought to be due to flareup of ulcerative colitis which was deemed to be severe. You were transfused a total of 3 units of packed red blood cells. UA initially maintained on no oral intake over several days. You underwent a bowel prep and had a colonoscopy done with biopsies. You were also maintained on high-dose steroids with hydrocortisone during your hospital stay. You are being discharged on prednisone 20 mg p.o. twice daily for 7 days. You have an appointment to follow-up with gastroenterology Ceci Edgar in [place] on 11/24/2020. He also have an appointment to follow-up with Ashley Rowland to ask primary care in [facility]. This appointment is on 11/22/2020. You will also be sent home with prescription for iron sulfate 325 mg p.o. twice daily due to anemia. The above has been explained to you and you expressed understanding. Care Goals: You were admitted for increased frequency of bloody diarrhea. On the day of admission you were also found to be anemic with a hemoglobin of 6.2. The diarrhea was thought to be due to flareup of ulcerative colitis which was deemed to be severe. You were transfused a total of 3 units of packed red blood cells. UA initially maintained on no oral intake over several days. You underwent a bowel prep and had a colonoscopy done with biopsies. You were also maintained on high-dose steroids with hydrocortisone during your hospital stay. You are being discharged on prednisone 20 mg p.o. twice daily for 7 days. You have an appointment to follow-up with gastroenterology Ceci Edgar in [place] on 11/24/2020. He also have an appointment to follow-up with Ashley Rowland to ask primary care in [facility]. This appointment is on 11/22/2020. You will also be sent home with prescription for iron sulfate 325 mg p.o. twice daily due to anemia. The above has been explained to you and you expressed understanding. Assessment: You were admitted for increased frequency of bloody diarrhea. On the day of admission you were also found to be anemic with a hemoglobin of 6.2. The diarrhea was thought to be due to flareup of ulcerative colitis which was deemed to be severe. You were transfused a total of 3 units of packed red blood cells. UA initially maintained on no oral intake over several days. You underwent a bowel prep and had a colonoscopy done with biopsies. You were also maintained on high-dose steroids with hydrocortisone during your hospital stay. You are being discharged on prednisone 20 mg p.o. twice daily for 7 days. You have an appointment to follow-up with gastroenterology Ceci Edgar in [place] on 11/24/2020. He also have an appointment to follow-up with Ashley Rowland to ask primary care in [facility]. This appointment is on 11/22/2020. You will also be sent home with prescription for iron sulfate 325 mg p.o. twice daily due to anemia. The above has been explained to you and you expressed understanding. No Smoking: If you smoke, Please STOP! Call for help.
[2020-11-12] MEDS ORDERED: HYDROCORTISONE SUCCINATE 100 MG/2 ML VIAL IVP SCH (16:00)
[2020-11-12 16:55] VITALS: BP 136/87
== END 2020-11-12 16:30 | disposition home or self-care (01) | DRG 386 ==
LOC: ED 08:32 → MS2 11:48
PROVIDERS: ADMIT Internal Medicine; ATTEND Internal Medicine
PROC: 30233N1 Transfusion of Nonautologous Red Blood Cells into Peripheral Vein, Percutaneous Approach (ICD-10-PCS; 2020-11-08)
PROC: 0DBL8ZX Excision of Transverse Colon, Via Natural or Artificial Opening Endoscopic, Diagnostic (ICD-10-PCS; 2020-11-10)
PROC: 0DBN8ZX Excision of Sigmoid Colon, Via Natural or Artificial Opening Endoscopic, Diagnostic (ICD-10-PCS; 2020-11-10)
PROC: 0DBP8ZX Excision of Rectum, Via Natural or Artificial Opening Endoscopic, Diagnostic (ICD-10-PCS; 2020-11-10)
PROC: 0DBG8ZX Excision of Left Large Intestine, Via Natural or Artificial Opening Endoscopic, Diagnostic (ICD-10-PCS; 2020-11-10)
PROC: 30233N1 Transfusion of Nonautologous Red Blood Cells into Peripheral Vein, Percutaneous Approach (ICD-10-PCS; 2020-11-10)
PROC: 0DBB8ZX Excision of Ileum, Via Natural or Artificial Opening Endoscopic, Diagnostic (ICD-10-PCS; principal; 2020-11-10 13:30)
DX: K51.911 Ulcerative colitis, unspecified with rectal bleeding (principal); D62 Acute posthemorrhagic anemia; Z20.822 Contact with and (suspected) exposure to COVID-19
CPT/HCPCS: 0202U; 36415; 36430; 74177; 80048; 80053; 80074; 81599; 82728; 83540; 83630; 83690; 83735; 83993; 84466; 84703; 85025; 85610; 85651; 86140; 86480; 86850; 86900; 86901; 86920; 87177; 87209; 87329; 87493; 96360; 99285; A9270; J7120; P9016; Q9967; 85014; 85018; 87045; 87046

== ENCOUNTER 2021-01-29 13:15 | Emergency (ER) | payer MEDICAID ==
--- OUTSIDE RECORDS SUMMARY | 2021-01-29 13:18 | EXTERNAL MEDICAL SUMMARY RPT | Continuity of Care Document ---
:2000 Demographics Phone Unavailable Preferred Language Unknown Marital Status Unknown Scientology Affiliation Unknown Race Unknown Ethnic Group Unknown Author Organization [facility] Address [address] [phone] Phone Allergies Encounters Medications Problems Results
--- OUTSIDE RECORDS SUMMARY | 2021-01-29 13:21 | EXTERNAL MEDICAL SUMMARY RPT | Continuity of Care Document ---
:2000 Demographics Phone Unavailable Preferred Language Unknown Marital Status Unknown Alevism Affiliation Unknown Race Unknown Ethnic Group Unknown Author Organization [facility] Address [address] [phone] Phone Allergies Encounters Medications Problems Results
--- NOTE | 2021-01-29 13:50 | ED Physician Documentation ---
History of Present Illness - Stated complaint Stated Complaint: FEMALE - Chief complaint Chief Complaint: Abd Pain - History obtained from History obtained from: Patient - History of Present Illness Timing: Today Pain level max: 3 Pain level now: 3 - Additonal information Additional information: 20-year-old female presents to the emergency department complaining of hematuria today x3. Has low back pain and urinary discomfort as well. Similar feeling to past UTIs. Denies any possibility of . Worse with urination, nothing makes it better. No fevers. No chills. No vomiting. Review of Systems Constitutional: denies: Fever, Chills Respiratory: denies: Cough GI: denies: Abdominal Pain, Nausea, Vomiting, Diarrhea : reports: Dysuria, Frequency, Hematuria. denies: Discharge, Now EGA Skin: denies: Rash Musculoskeletal: denies: Neck pain, Back pain Neurologic: denies: Headache PD PAST MEDICAL HISTORY - Past Medical History Cardiovascular: None Respiratory: Asthma (well controlled) Neuro: None Endocrine/Autoimmune: None GI: Ulcerative colitis (dx @11years of age) : None HEENT: None Psych: Depression Musculoskeletal: None Derm: None - Past Surgical History Past Surgical History: Yes General: Colonoscopy HEENT: Tonsil/Adenoidectomy - Present Medications Home Medications: Ambulatory Orders Medication Instructions Recorded Confirmed Ferrous Sulfate [Feosol] 325 mg ORAL DAILY 12/30/20 01/29/21 Mesalamine [Pentasa] 250 mg PO Q6HR 12/30/20 01/29/21 azaTHIOprine [Imuran] 50 mg PO DAILY 12/30/20 01/29/21 predniSONE [Deltasone] 10 mg PO BID 12/30/20 01/29/21 Nitrofurantoin [Macrobid] 100 mg PO BID #10 01/29/21 Phenazopyridine HCl [Pyridium] 200 mg PO TID PRN #6 tablet 01/29/21 - Allergies Allergies/Adverse Reactions: Allergies Allergy/AdvReac Type Severity Reaction Status Date / Time ibuprofen AdvReac Unknown Verified 01/29/21 13:20 - Social History Does the pt smoke?: No Smoking Status: Never smoker Does the pt drink ETOH?: No Does the pt have substance abuse?: No - Immunizations Immunizations are current?: Yes - POLST Patient has POLST: No POLST Status: Full Code PD ED PE NORMAL - Vitals Vital signs reviewed: Yes - General General: Alert and oriented X 3, No acute distress, Well developed/nourished - HEENT HEENT: PERRL, Moist mucous membranes - Neck Neck: Supple, no meningeal sign - Cardiac Cardiac: RRR, Strong equal pulses - Respiratory Respiratory: No respiratory distress, Clear bilaterally - Abdomen Abdomen: Soft, Non tender, Non distended - Back Back: No CVA TTP, No spinal TTP - Derm Derm: Warm and dry - Neuro Neuro: Alert and oriented X 3 - Psych Psych: Normal mood, Normal affect Results - Vitals Vitals: Vital Signs - 24 hr 01/29/21 13:21 Temperature 36.5 C Heart Rate 91 Respiratory 19 Rate Blood Pressure 122/76 O2 Saturation 100 Oxygen O2 Source Room air - Labs Labs: Laboratory Tests 01/29/21 13:40 Urine Color BROWN Urine Clarity BLOODY Urine pH 6.0 Ur Specific [place] 1.020 Urine Protein 100 H Urine Glucose (UA) NEGATIVE Urine Ketones NEGATIVE Urine Occult Blood LARGE H Urine Nitrite NEGATIVE Urine Bilirubin NEGATIVE Urine Urobilinogen 0.2 (NORMAL) Ur Leukocyte Esterase TRACE H Urine RBC TNTC H Urine WBC 6-10 H Ur Squamous Epith Cells RARE Squamous Urine Bacteria Rare Ur Microscopic Review INDICATED Urine Culture Comments INDICATED Urine HCG, Qual NEGATIVE PD MEDICAL DECISION MAKING - ED course Complexity details: reviewed results, re-evaluated patient, considered differential, d/w patient ED course: Patient with symptoms of a UTI and hematuria. Likely secondary to infection. N o evidence of ureterolithiasis. No flank pain. No evidence of pyelonephritis. No place on antibiotics and have her follow-up with her doctor for further care. Patient counseled regarding signs and symptoms for which I believe and urgent re-evaluation would be necessary. Patient with good understanding of and agreement to plan and is comfortable going home at this time This document was made in part using voice recognition software. While efforts are made to proofread this document, sound alike and grammatical errors may occur. Departure - Departure Disposition: 01 Home, Self Care Clinical Impression: UTI (urinary tract infection) Qualifiers: Urinary tract infection type: acute cystitis Hematuria presence: with hematuria Qualified Code(s): N30.01 - Acute cystitis with hematuria Hematuria Qualifiers: Hematuria type: gross Qualified Code(s): R31.0 - Gross hematuria Condition: Good Instructions: ED UTI Cystitis Female Follow-Up: Melissa Rowland ARNP [Primary Care Provider] - As Needed Prescriptions: Nitrofurantoin [Macrobid] 100 mg PO BID #10 Phenazopyridine HCl [Pyridium] 200 mg PO TID PRN #6 tablet PRN Reason: dysuria Comments: Take all antibiotics until gone. Return if you worsen. The blood in the urine should resolve as the infection resolves, if it does not, further workup will need to be done. Follow-up with your doctor as needed for further care.
[2021-01-29 13:54] LABS: BILIRUBIN,URINE NEGATIVE (NEGATIVE); GLUCOSE, URINE (UA) NEGATIVE (NEGATIVE); KETONES,URINE (UA) NEGATIVE (NEGATIVE); LEUKOCYTE ESTERASE, URINE TRACE (NEGATIVE); NITRITE,URINE NEGATIVE (NEGATIVE); OCCULT BLOOD,URINE LARGE (NEGATIVE); PROTEIN,URINE 100 mg/dL (NEGATIVE); UROBILINOGEN,URINE 0.2 (NORMAL) E.U./dL (NORMAL)
[2021-01-29 13:55] LABS: CLARITY,URINE BLOODY (CLEAR); HCG UR QUAL NEGATIVE
[2021-01-29 14:16] LABS: BACTERIA,URINE Rare /HPF (None Seen); RBC,URINE TNTC /HPF (0-5); SQUAMOUS EPITHELIAL CELL,UR RARE Squamous (<= Few)
[2021-01-29 14:29] VITALS: BP 114/76
== END 2021-01-29 14:29 | disposition home or self-care (01) ==
LOC: ED 13:15
DX: N30.01 Acute cystitis with hematuria (principal)
CPT/HCPCS: 81001; 81003; 81025; 87077; 87086; 87181; 99283; 99284

== ENCOUNTER 2021-02-07 11:05 | Outpatient (CLI) | payer MEDICAID | END 2021-02-07 23:59 | disposition home or self-care (01) | LOC: LAB.N 11:05 | PROVIDERS: ATTEND Family Medicine | DX: N39.0 Urinary tract infection, site not specified (principal) | CPT/HCPCS: 87077; 87086; 87181 ==

== ENCOUNTER 2021-02-22 08:20 | Outpatient (CLI) | payer MEDICAID | END 2021-02-22 23:59 | disposition home or self-care (01) | LOC: LAB.N 08:20 | PROVIDERS: ATTEND Nurse Practitioner | DX: R39.9 Unspecified symptoms and signs involving the genitourinary system (principal) | CPT/HCPCS: 87077; 87086; 87181 ==

== ENCOUNTER 2021-05-24 08:00 | Outpatient (CLI) | payer MEDICAID | END 2021-05-24 23:59 | disposition home or self-care (01) | LOC: LAB.N 08:00 | PROVIDERS: ATTEND Family Medicine | DX: R07.0 Pain in throat (principal); Z20.822 Contact with and (suspected) exposure to COVID-19 | CPT/HCPCS: 87070 ==

== ENCOUNTER 2021-07-24 08:34 | Outpatient (CLI) | payer MEDICAID ==
[2021-07-24] MEDS ORDERED: IOVERSOL 320 100 ML VIAL IVP ONE (08:45)
[2021-07-24] MEDS: IOVERSOL 320 100 ML VIAL IVP ONE (09:00)
--- NOTE | 2021-07-24 10:14 | CT Report ---
PROCEDURE: CHEST W INDICATIONS: SOLITARY NODULE OF LUNG CONTRAST: IV CONTRAST: Optiray 320 ml: 90 PO CONTRAST: *NO PO CONTRAST TECHNIQUE: After the administration of intravenous contrast, 1 mm axial images were acquired from the pulmonary apices through the posterior costophrenic angles. Axial 5 mm soft tissue kernel reconstructions were performed as well as 8 mm axial MIP and coronal and sagittal 5 mm reformations. For radiation dose reduction, the following was used: automated exposure control, adjustment of mA and/or kV according to patient size. COMPARISON: None. FINDINGS: Image quality: Excellent. Lungs and pleura: No acute air space opacities. No pleural effusions or pneumothorax. Central and peripheral airways are patent and normal in caliber. Mediastinum: Heart size is normal. No pericardial effusion. No mediastinal or hilar adenopathy by size criteria. Thoracic aorta and central pulmonary arteries are normal in size. Esophagus is nico l in caliber. No hiatal hernia. Bones and chest wall: No suspicious bony lesions. No vertebral body compression fractures. No axil anabell or supraclavicular adenopathy by size criteria. Thyroid gland is normal. Abdomen: Visualized upper abdominal solid organs appear normal. Upper abdominal bowel loops are nor mal in caliber. IMPRESSION: 1. No pulmonary nodule is identified. Please note that no prior imaging at [facility] demonstrates any pulmo nary nodules. If there is outside imaging demonstrating a pulmonary nodule comparison can be made if other imaging can be obtained. 2. No acute abnormality of the chest. Reviewed by: Chandu Ray on 07/24/2021 10:12 AM [facility] Approved by: Chandu Ray on 07/24/2021 10:12 AM [facility] Station ID: [id number]
== END 2021-07-24 08:35 | disposition home or self-care (01) ==
LOC: DI 08:34
PROVIDERS: ATTEND Registered Nurse
DX: R91.1 Solitary pulmonary nodule (principal)
CPT/HCPCS: 71260; Q9967

== ENCOUNTER 2021-09-04 08:00 | Outpatient (CLI) | payer MEDICAID | END 2021-09-04 23:59 | LOC: LAB 08:00 | PROVIDERS: ATTEND Physician Assistant | DX: R07.0 Pain in throat (principal); Z20.822 Contact with and (suspected) exposure to COVID-19 ==